=== PATIENT | female | born 1995 | race Caucasian/White ===

== ENCOUNTER 2016-11-27 23:58 | Emergency (ER) | payer MEDICAID ==
[2016-11-28] MEDS ORDERED: methylPREDNISolone Sodium Succinate 125 MG/2 ML SDV IVPUSH ONE (00:07)
[2016-11-28] MEDS ORDERED: Ondansetron 4 MG/2 ML SDV IVPUSH ONE (00:07)
[2016-11-28] MEDS ORDERED: Sodium Chloride 0.9% 1,000 ML IV ONE (00:07)
[2016-11-28] MEDS ORDERED: Albuterol/Ipratropium 3.0-0.5 MG/3 ML Neb Soln NEB ONE (00:07)
--- NOTE | 2016-11-28 00:12 | EDM.PDOC ---
ED HPI GENERAL MEDICAL PROBLEM - General Stated Complaint: NOT FEELING WELL/TROUBLE BREATHING Time Seen by Provider: 11/28/16 00:06 - History of Present Illness INITIAL COMMENTS - FREE TEXT/NARRATIVE: HISTORY AND PHYSICAL: History of present illness: Patient's 21-year-old white female judgments or shortness of breath cough patient has history of alpha-1 antitrypsin deficiency she is on home oxygen she said nausea vomiting. Review of systems: As per history of present illness and below otherwise all systems reviewed and negative. Past medical history: As per history of present illness and as reviewed below otherwise noncontributory. Surgical history: As per history of present illness and as reviewed below otherwise noncontributory. Social history: No reported history of drug or alcohol abuse. Family history: As per history of present illness and as reviewed below otherwise noncontributory. Physical exam: HEENT: Atraumatic, normocephalic, pupils reactive, negative for conjunctival pallor or scleral icterus, mucous membranes moist, throat clear, neck supple, nontender, trachea midline. Lungs: Coarse bilaterally with end expiratory wheezing noted, breath sounds equal bilaterally, chest nontender. Heart: S1S2, regular, negative for clicks, rubs, or JVD. Abdomen: Soft, nondistended, nontender. Negative for masses or hepatosplenomegaly. Negative for costovertebral tenderness. Pelvis: Stable nontender. Genitourinary: Deferred. Rectal: Deferred. Extremities: Atraumatic, negative for cords or calf pain. Neurovascular unremarkable. Neuro: Awake, alert, oriented. Cranial nerves II through XII unremarkable. Cerebellum unremarkable. Motor and sensory unremarkable throughout. Exam nonfocal. Diagnostics: CBC CMP UA hCG blood culture x2 lactic acid influenza screen chest x-ray Therapeutics: IV O2 monitor Solu-Medrol and 25 mg IV DuoNeb Impression: #1 pneumonitis #2 history of alpha-1 antitrypsin deficiency #3 obstructive lung disease Definitive disposition and diagnosis as appropriate pending reevaluation and review of above. - Related Data Allergies Allergy/AdvReac Type Severity Reaction Status Date / Time codeine Allergy Anaphylactic Verified 11/28/16 00:27 Shock latex Allergy Rash Verified 11/28/16 00:27 meperidine HCl [From Demerol] Allergy Anaphylactic Verified 11/28/16 00:27 Shock morphine Allergy Anaphylactic Verified 11/28/16 00:27 Shock Home Meds: Home Meds Albuterol [Ventolin HFA] 2 puff INH Q2HR PRN 06/02/14 [History] ALPRAZolam [Xanax] 0.25 mg PO BEDTIME tablet 09/16/15 [Rx] Albuterol/Ipratropium [DuoNeb 3.0-0.5 MG/3 ML] 3 ml NEB Q6HRRT 01/04/16 [History ] Calcium Carbonate [Calcium] 2 tab PO DAILY 11/28/16 [History] Past Medical History HEENT History: Reports: Allergic rhinitis Other HEENT History: dental abcess, broken teeth, astigmatism Cardiovascular History: Reports: None Respiratory History: Reports: Asthma, Bronchitis, recurrent, Pneumonia, recurrent, Other (see below) Other Respiratory History: mold in lungs. intubated 09/19/15 and flown to [place]. states being tested for AAT deficiency. Gastrointestinal History: Reports: Chronic constipation, GERD, Other (see below) Other Gastrointestinal History: constipation a chronic issue since intestinal growth removed Genitourinary History: Reports: UTI, recurrent [employer] History: Reports: None Musculoskeletal History: Reports: Fracture, Other (see below) Other Musculoskeletal History: Bulging disc Neurological History: Reports: Other (see below) Other Neuro History: tourette syndrome Psychiatric History: Reports: Anxiety, Depression, PTSD, Other (see below) Other Psychiatric History: Paranoia Endocrine/Metabolic History: Reports: None Hematologic History: Reports: Anemia Immunologic History: Reports: None Oncologic (Cancer) History: Reports: None Dermatologic History: Reports: None - Infectious Disease History Infectious Disease History: Reports: Chicken pox - Past Surgical History GI Surgical History: Reports: Appendectomy, Other (see below) Other GI Surgeries/Procedures: removal of growth on intestines Female Surgical History: Reports: None Social & Family History - Family History Family Medical History: Noncontributory HEENT: Reports: Impaired vision Cardiac: Reports: Heart failure Respiratory: Reports: Asthma GI: Reports: None : Reports: Renal disease/insufficiency OBGYN: Reports: None Musculoskeletal: Reports: Arthritis Neurological: Reports: Dementia Psychiatric: Reports: Anxiety, Depression Endocrine/Metabolic: Reports: Diabetes, type II Hematologic: Reports: Anemia Dermatologic: Reports: Other (see below) Other Dermatologic Family History: skin allergy, eczema Oncologic: Reports: Colon, Leukemia - Tobacco Use Smoking Status *Q: Former Smoker Years of Tobacco use: 5 Packs/Tins Daily: 0.5 Used Tobacco, but Quit: Yes Month Tobacco Last Used: june 2015 Second Hand Smoke Exposure: Yes - Caffeine Use Caffeine Use: Reports: Energy drinks Other Caffeine Use: 1-2 energy drink per day - Alcohol Use Days Per Week of Alcohol Use: 1 Number of Drinks Per Day: 1 Total Drinks Per Week: 1 - Recreational Drug Use Recreational Drug Use: No Drug Use in Last 12 Months: No Recreational Drug Type: Reports: Marijuana/Hashish ED ROS GENERAL - Review of Systems Review Of Systems: ROS reveals no pertinent complaints other than HPI. ED EXAM, GENERAL - Physical Exam Exam: See Below (See dictation) Course - Vital Signs Last Recorded V/S: Last Vital Signs Temp 37.4 C 11/28/16 00:46 Pulse 164 H 11/28/16 00:46 Resp 20 11/28/16 00:46 BP 128/72 11/28/16 00:46 Pulse Ox 96 11/28/16 00:46 - Orders/Labs/Meds Orders: Active Orders 24 hr Category Date Time Status RT Aerosol Therapy [RC] ASDIRECTED Care 11/28/16 00:08 Active Chest 2V [CR] Stat Exams 11/28/16 00:07 Taken UA W/MICROSCOPIC [URIN] Stat Lab 11/28/16 00:07 Uncollected Blood Culture x2 Reflex Set [OM.PC] Stat Oth 11/28/16 00:07 Ordered Labs: Laboratory Tests 11/28/16 11/28/16 11/28/16 Range/Units 00:15 00:15 00:15 WBC 10.54 (4.0-11.0) K/uL RBC 4.50 (4.30-5.90) M/uL Hgb 12.0 (12.0-16.0) g/dL Hct 37.2 (36.0-46.0) % MCV 82.7 (80.0-98.0) fL MCH 26.7 L (27.0-32.0) pg MCHC 32.3 (31.0-37.0) g/dL RDW Std Deviation 45.9 (28.0-62.0) fl RDW Coeff of Jhon 15 (11.0-15.0) % Plt Count 343 (150-400) K/uL MPV 9.20 (7.40-12.00) fL Neut % (Auto) 84.7 H (48.0-80.0) % Lymph % (Auto) 6.5 L (16.0-40.0) % Mccreary % (Auto) 6.7 (0.0-15.0) % Eos % (Auto) 1.7 (0.0-7.0) % Baso % (Auto) 0.4 (0.0-1.5) % Neut # 8.9 H (1.4-5.7) K/uL Lymph # 0.7 (0.6-2.4) K/uL Mccreary # 0.7 (0.0-0.8) K/uL Eos # 0.2 (0.0-0.7) K/uL Baso # 0.0 (0.0-0.1) K/uL Nucleated RBC % 0.0 /100WBC Nucleated RBCs # 0 K/uL Lactate 1.7 (0.20-2.00) mmol/L Sodium 137 (136-146) mmol/L Potassium 3.5 (3.5-5.1) mmol/L Chloride 106 (98-110) mmol/L Carbon Dioxide 19 L (21-31) mmol/L BUN 9 (6.0-23.0) mg/dL Creatinine 0.9 (0.6-1.5) mg/dL Est Cr Clr Drug Dosing TNP Estimated GFR (MDRD) > 60.0 ml/min Glucose 101 (60-110) mg/dL Calcium 9.5 (8.8-10.8) mg/dL Total Bilirubin 0.3 (0.1-1.5) mg/dL AST 15 (5-40) IU/L ALT 15 (8-54) IU/L Alkaline Phosphatase 93 (40-150) B-Natriuretic Peptide (<100) PG/ML Total Protein 7.7 (6.0-8.0) g/dL Albumin 4.4 (3.5-5.0) g/dL Globulin 3.4 (2.0-3.5) g/dL Albumin/Globulin Ratio 1.3 (1.3-2.8) HCG, Qual (NEG) 03/11/17 03/11/17 Range/Units 00:15 00:15 WBC (4.0-11.0) K/uL RBC (4.30-5.90) M/uL Hgb (12.0-16.0) g/dL Hct (36.0-46.0) % MCV (80.0-98.0) fL MCH (27.0-32.0) pg MCHC (31.0-37.0) g/dL RDW Std Deviation (28.0-62.0) fl RDW Coeff of Jhon (11.0-15.0) % Plt Count (150-400) K/uL MPV (7.40-12.00) fL Neut % (Auto) (48.0-80.0) % Lymph % (Auto) (16.0-40.0) % Mccreary % (Auto) (0.0-15.0) % Eos % (Auto) (0.0-7.0) % Baso % (Auto) (0.0-1.5) % Neut # (1.4-5.7) K/uL Lymph # (0.6-2.4) K/uL Mccreary # (0.0-0.8) K/uL Eos # (0.0-0.7) K/uL Baso # (0.0-0.1) K/uL Nucleated RBC % /100WBC Nucleated RBCs # K/uL Lactate (0.20-2.00) mmol/L Sodium (136-146) mmol/L Potassium (3.5-5.1) mmol/L Chloride (98-110) mmol/L Carbon Dioxide (21-31) mmol/L BUN (6.0-23.0) mg/dL Creatinine (0.6-1.5) mg/dL Est Cr Clr Drug Dosing Estimated GFR (MDRD) ml/min Glucose (60-110) mg/dL Calcium (8.8-10.8) mg/dL Total Bilirubin (0.1-1.5) mg/dL AST (5-40) IU/L ALT (8-54) IU/L Alkaline Phosphatase (40-150) B-Natriuretic Peptide 15 (<100) PG/ML Total Protein (6.0-8.0) g/dL Albumin (3.5-5.0) g/dL Globulin (2.0-3.5) g/dL Albumin/Globulin Ratio (1.3-2.8) HCG, Qual NEGATIVE (NEG) Meds: Medications Discontinued Medications Generic Name Dose Route Start Last Admin Trade Name Brian PRN Reason Stop Dose Admin Albuterol/Ipratropium 3 ml 11/28/16 00:07 11/28/16 00:32 Duoneb 3.0-0.5 Mg/3 Ml NEB 11/28/16 00:08 3 ml ONETIME ONE Administration Sodium Chloride 1,000 mls @ 999 mls/hr 11/28/16 00:07 11/28/16 00:40 Normal Saline IV 11/28/16 01:07 999 mls/hr STAT ONE Administration Methylprednisolone Sodium Succinate 125 mg 11/28/16 00:07 11/28/16 00:35 Solu-Medrol IVPUSH 11/28/16 00:08 125 mg ONETIME ONE Administration Ondansetron HCl 4 mg 11/28/16 00:07 11/28/16 00:37 Zofran IVPUSH 11/28/16 00:08 4 mg ONETIME ONE Administration Departure - Departure Time of Disposition: 01:43 Disposition: Home, Self-Care 01 Condition: good Clinical Impression: Pneumonitis Additional Instructions: The following information is given to patients seen in the emergency department who are being discharged to home. This information is to outline your options for follow-up care. We provide all patients seen in our emergency department with a follow-up referral. The need for follow-up, as well as the timing and circumstances, are variable depending upon the specifics of your emergency department visit. If you don't have a primary care physician on staff, we will provide you with a referral. We always advise you to contact your personal physician following an emergency department visit to inform them of the circumstance of the visit and for follow-up with them and/or the need for any referrals to a consulting specialist. The emergency department will also refer you to a specialist when appropriate. This referral assures that you have the opportunity for followup care with a specialist. All of these measure are taken in an effort to provide you with optimal care, which includes your followup. Under all circumstances we always encourage you to contact your private physician who remains a resource for coordinating your care. When calling for followup care, please make the office aware that this follow-up is from your recent emergency room visit. If for any reason you are refused follow-up, please contact the [facility] emergency department at and asked to speak to the emergency department charge nurse. A Zithromax Medrol as prescribed follow up primary medical doctor within 2 days return as needed as discussed - My Orders Last 24 Hours: My Active Orders 11/28/16 00:07 Chest 2V [CR] Stat UA W/MICROSCOPIC [URIN] Stat Blood Culture x2 Reflex Set [OM.PC] Stat 11/28/16 00:08 RT Aerosol Therapy [RC] ASDIRECTED - Assessment/Plan Last 24 Hours: My Active Orders 11/28/16 00:07 Chest 2V [CR] Stat UA W/MICROSCOPIC [URIN] Stat Blood Culture x2 Reflex Set [OM.PC] Stat 11/28/16 00:08 RT Aerosol Therapy [RC] ASDIRECTED
[2016-11-28 01:09] LABS: CHLORIDE,CL 106 mmol/L (98-110); SODIUM,NA 137 mmol/L (136-146)
[2016-11-28 02:16] VITALS: BP 114/56
--- NOTE | 2016-11-30 19:56 | CR ---
EXAM DATE: 11/27/16 PATIENT'S AGE: 21 Patient: [facility] Facility: [place], [place] Site . Site : 1996 Study: XRay Chest [id number] 1:21:27 AM Ordering Physician: Tobin Velazco Final Report: INDICATION: Chest pain with shortness of breath TECHNIQUE: Chest 2 views. COMPARISON: November 05, 2016 FINDINGS: Cardiovascular and mediastinum: Heart size and vasculature are normal in caliber and appearance. Mediastinum is within normal limits. Lungs and pleural spaces: Patchy opacity projects over the cardiac shadow on the lateral film. No sign of pleural effusion. No pneumothorax. Bones and soft tissues: No significant findings. IMPRESSION: Patchy atelectasis or infiltrate in the right middle lobe. Dictated by Breanna Fernández MD @ Nov 28 2016 1:22AM (Electronic Signature) Report Signed by Proxy and Original Signed Document filed in the Medical Record. KATY
== END 2016-11-28 02:10 | disposition home or self-care (01) ==
LOC: MW.ED 23:58
DX: J18.9 Pneumonia, unspecified organism (principal); K21.9 Gastro-esophageal reflux disease without esophagitis; F41.9 Anxiety disorder, unspecified; F32.9 Major depressive disorder, single episode, unspecified; Z86.2 Personal history of diseases of the blood and blood-forming organs and certain disorders involving the immune mechanism; J45.909 Unspecified asthma, uncomplicated; Z87.891 Personal history of nicotine dependence; Z90.49 Acquired absence of other specified parts of digestive tract; Z87.440 Personal history of urinary (tract) infections; Z79.899 Other long term (current) drug therapy; Z88.5 Allergy status to narcotic agent; Z91.040 Latex allergy status
CPT/HCPCS: 71020; 80053; 81001; 83605; 83880; 84703; 85025; 87804; 96361; 96374; 96375; 99285; J2405; J2930; J7040; 99283

== ENCOUNTER → 2016-12-11 | Outpatient (CLI) | payer MEDICAID ==
--- NOTE | 2016-12-11 10:06 | CR ---
EXAMINATION: Two-view chest (PA and Lateral views). HISTORY: Cough. FINDINGS: The trachea is midline. The cardiomediastinal silhouette is within normal limits. No pulmonary infil trates, effusions or pneumothorax. Osseous structures appear unremarkable. IMPRESSION: No acute cardiopulmonary process.
[2016-12-11 10:13] LABS: CHLORIDE,CL 110 mmol/L (98-110); SODIUM,NA 142 mmol/L (136-146)
== END ==
LOC: MW.CHFP 09:02
PROVIDERS: ATTEND Student in an Organized Health Care Education/Training Program
DX: R05 Cough (principal); R11.2 Nausea with vomiting, unspecified; J41.1 Mucopurulent chronic bronchitis
CPT/HCPCS: 36415; 71020; 71020-26; 80053; 85025

== ENCOUNTER 2017-04-18 22:14 | Emergency (ER) | payer MEDICAID ==
[2017-04-18] MEDS ORDERED: Sodium Chloride 0.9% 2.5 ML Syringe FLUSH PRN (23:25)
[2017-04-18] MEDS ORDERED: Sodium Chloride 0.9% 1,000 ML IV ONE (23:25)
[2017-04-18] MEDS ORDERED: Ondansetron 4 MG/2 ML SDV IVPUSH ONE (23:25)
[2017-04-18] MEDS ORDERED: Sodium Chloride 0.9% 10 ML Syringe FLUSH PRN (23:25)
[2017-04-18] MEDS ORDERED: Famotidine 20 MG/2 ML SDV IVPUSH ONE (23:25)
--- NOTE | 2017-04-18 23:30 | EDM.PDOC ---
ED HPI GENERAL MEDICAL PROBLEM - General Chief Complaint: Gastrointestinal Problem Stated Complaint: DIZZY/VOMITING Time Seen by Provider: 04/18/17 23:18 - History of Present Illness INITIAL COMMENTS - FREE TEXT/NARRATIVE: HISTORY AND PHYSICAL: History of present illness: The patient is a 22-year-old female who presents with a five-day history of epigastric and generalized abdominal pain is not associated with foods and nausea and vomiting initially intermittently and now more consistently and no period since March 16. The patient states she has regular periods and she takes control and she did a home test that was negative. She's concerned because her breasts are also tender. She's had no fever chills or urinary complaints no vaginal bleeding or flank pain. Initially she told triage nurse that it was epigastric but she is telling me that it's there and it's all over her abdomen. She has no urinary frequency hematuria or dysuria. She has only taken Motrin [id number] but no GI meds specifically. She has a history of an appendectomy. He states that the pain is not better or worse in the morning or the evening and is not associated with certain foods. Review of systems: As per history of present illness and below otherwise all systems reviewed and negative. Past medical history: As per history of present illness and as reviewed below otherwise noncontributory. Surgical history: As per history of present illness and as reviewed below otherwise noncontributory. Social history: No reported history of drug or alcohol abuse. Family history: As per history of present illness and as reviewed below otherwise noncontributory. Physical exam: Gen.: Well-developed well-nourished overweight female who is nontoxic and vital signs of been reviewed by me. HEENT: Atraumatic, normocephalic, negative for conjunctival pallor or scleral icterus, mucous membranes moist, throat clear, neck supple, nontender, trachea midline. Lungs: Clear to auscultation, breath sounds equal bilaterally, chest nontender. Heart: S1S2, regular, negative for clicks, rubs, or JVD. Abdomen: Soft, nondistended, nontender. On deep palpation throughout the abdominal exam I am unable to elicit any specific area of tenderness but there is a generalized sense of generalized discomfort without any focality. There is no rebound or guarding and bowel sounds are normoactive. Negative for masses or hepatosplenomegaly. Negative for costovertebral tenderness. Pelvis: Stable nontender. Genitourinary: Deferred. Rectal: Deferred. Extremities: Atraumatic, negative for cords or calf pain. Neurovascular unremarkable. Neuro: Awake, alert, oriented. Cranial nerves II through XII unremarkable. Cerebellum unremarkable. Motor and sensory unremarkable throughout. Exam nonfocal. Diagnostics: CBC CMP amylase lipase UA UCG serum hCG Therapeutics: IV fluids Zofran Pepcid Please note that after multiple IV attempts we were unable to get IV and and the patient wanted to hold off anymore temps. She got ODT Zofran but did not get the Pepcid. After some time she was able to take by mouth fluids without nausea or vomiting and her pain is improved now that the nausea has stopped. I discussed with the patient and significant other at the bedside all testing results and have advised follow-up which she tells me she has an appointment this morning with Dr. Xiong in the clinic. I told her that I would give her some Zofran for home tell her to push hydration and bland diet and also write for a PPI she can fill in the morning. I also advised her on dietary restrictions and that Dr. Xiong on his evaluation may schedule more testing pending his evaluation later today. Patient is comfortable with this care plan. Impression: Epigastric abdominal pain nausea and vomiting improved etiology unclear stable Definitive disposition and diagnosis as appropriate pending reevaluation and review of above. epigastric Pain Score (Numeric/FACES): 6 - Related Data Allergies Allergy/AdvReac Type Severity Reaction Status Date / Time codeine Allergy Anaphylactic Verified 04/18/17 22:29 Shock latex Allergy Rash Verified 04/18/17 22:29 meperidine HCl [From Demerol] Allergy Anaphylactic Verified 04/18/17 22:29 Shock morphine Allergy Anaphylactic Verified 04/18/17 22:29 Shock Home Meds: Home Meds Albuterol [Ventolin HFA] 2 puff INH Q2HR PRN 06/02/14 [History] ALPRAZolam [Xanax] 0.25 mg PO BEDTIME tablet 09/16/15 [Rx] Albuterol/Ipratropium [DuoNeb 3.0-0.5 MG/3 ML] 3 ml NEB Q6HRRT 01/04/16 [History ] Past Medical History HEENT History: Reports: Allergic Rhinitis Other HEENT History: dental abcess, broken teeth, astigmatism Cardiovascular History: Reports: None Respiratory History: Reports: Asthma, Bronchitis, Recurrent, Pneumonia, Recurrent, Other (See Below) Other Respiratory History: mold in lungs. intubated 09/19/15 and flown to [place]. states being tested for AAT deficiency. 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 Musculoskeletal History: Reports: Fracture, Other (See Below) Other Musculoskeletal History: Bulging disc Neurological History: Reports: Other (See Below) Other Neuro History: tourette syndrome Psychiatric History: Reports: Anxiety, Depression, PTSD, Other (See Below) Other Psychiatric History: Paranoia Endocrine/Metabolic History: Reports: None Hematologic History: Reports: Anemia Immunologic History: Reports: None Oncologic (Cancer) History: Reports: None Dermatologic History: Reports: None - Infectious Disease History Infectious Disease History: Reports: Chicken Pox - Past Surgical History GI Surgical History: Reports: Appendectomy, Other (See Below) Social & Family History - Family History Family Medical History: Noncontributory HEENT: Reports: Impaired Vision Cardiac: Reports: Heart Failure Respiratory: Reports: Asthma GI: Reports: None : Reports: Renal Disease/Insufficiency OBGYN: Reports: None Musculoskeletal: Reports: Arthritis Neurological: Reports: Dementia Psychiatric: Reports: Anxiety, Depression Endocrine/Metabolic: Reports: Diabetes, type II Hematologic: Reports: Anemia Dermatologic: Reports: Other (See Below) Other Dermatologic Family History: skin allergy, eczema Oncologic: Reports: Colon, Leukemia - Tobacco Use Smoking Status *Q: Current Every Day Smoker Years of Tobacco use: 10 Packs/Tins Daily: 1 Used Tobacco, but Quit: Yes Month Tobacco Last Used: june 2015 Second Hand Smoke Exposure: Yes - Caffeine Use Caffeine Use: Reports: Energy Drinks Other Caffeine Use: 1-2 energy drink per day Caffeine Use Comment: 2cups coffe/day; 2 drinks/day - Alcohol Use Days Per Week of Alcohol Use: 1 Number of Drinks Per Day: 1 Total Drinks Per Week: 1 - Recreational Drug Use Recreational Drug Use: No Drug Use in Last 12 Months: No Recreational Drug Type: Reports: Marijuana/Hashish ED TRUE GENERAL - Review of Systems Review Of Systems: ROS reveals no pertinent complaints other than HPI. ED EXAM, GENERAL - Physical Exam Exam: See Below (See dictation) Course - Vital Signs Last Recorded V/S: Last Vital Signs Temp 36.8 C 04/18/17 22:31 Pulse 68 04/18/17 22:31 Resp 16 04/18/17 22:31 BP 150/72 H 04/18/17 22:31 Pulse Ox 98 04/18/17 22:31 - Orders/Labs/Meds Orders: Active Orders 24 hr Category Date Time Status Sodium Chloride 0.9% [Saline Flush] Med 04/18/17 23:25 Active 10 ml FLUSH ASDIRECTED PRN Sodium Chloride 0.9% [Saline Flush] Med 04/18/17 23:25 Active 2.5 ml FLUSH ASDIRECTED PRN Saline Lock Insert [OM.PC] Stat Oth 04/18/17 23:23 Ordered Medication Orders Sodium Chloride (Saline Flush) 10 ml FLUSH ASDIRECTED PRN PRN Reason: Keep Vein Open Sodium Chloride (Saline Flush) 2.5 ml FLUSH ASDIRECTED PRN PRN Reason: Keep Vein Open Labs: Laboratory Tests 04/19/17 04/19/17 04/19/17 Range/Units 00:37 00:37 00:37 WBC 12.42 H (4.0-11.0) K/uL RBC 4.12 L (4.30-5.90) M/uL Hgb 11.4 L (12.0-16.0) g/dL Hct 35.4 L (36.0-46.0) % MCV 85.9 (80.0-98.0) fL MCH 27.7 (27.0-32.0) pg MCHC 32.2 (31.0-37.0) g/dL RDW Std Deviation 48.9 (28.0-62.0) fl RDW Coeff of Jhon 16 H (11.0-15.0) % Plt Count 416 H (150-400) K/uL MPV 9.10 (7.40-12.00) fL Neut % (Auto) 60.5 (48.0-80.0) % Lymph % (Auto) 28.3 (16.0-40.0) % [place] % (Auto) 9.3 (0.0-15.0) % Eos % (Auto) 1.6 (0.0-7.0) % Baso % (Auto) 0.3 (0.0-1.5) % Neut # (Auto) 7.5 H (1.4-5.7) K/uL Lymph # (Auto) 3.5 H (0.6-2.4) K/uL [place] # (Auto) 1.2 H (0.0-0.8) K/uL Eos # (Auto) 0.2 (0.0-0.7) K/uL Baso # (Auto) 0.0 (0.0-0.1) K/uL Nucleated RBC % 0.0 /100WBC Nucleated RBCs # 0 K/uL Sodium 141 (136-146) mmol/L Potassium 4.2 (3.5-5.1) mmol/L Chloride 111 H (98-110) mmol/L Carbon Dioxide 21 (21-31) mmol/L BUN 10 (6.0-23.0) mg/dL Creatinine 0.9 (0.6-1.5) mg/dL Est Cr Clr Drug Dosing 71.02 mL/min Estimated GFR (MDRD) > 60.0 ml/min Glucose 94 (60-110) mg/dL Calcium 9.4 (8.8-10.8) mg/dL Total Bilirubin 0.2 (0.1-1.5) mg/dL AST 13 (5-40) IU/L ALT 21 (8-54) IU/L Alkaline Phosphatase 61 (40-150) Total Protein 7.0 (6.0-8.0) g/dL Albumin 4.0 (3.5-5.0) g/dL Globulin 3.0 (2.0-3.5) g/dL Albumin/Globulin Ratio 1.3 (1.3-2.8) Amylase 49 (10-90) U/L Lipase 13 (7-80) U/L HCG, Quant < 1.2 mIU/mL Urine Color Urine Appearance Urine pH (5.0-8.0) Ur Specific [place] (1.001-1.035) Urine Protein (NEGATIVE) mg/dL Urine Glucose (UA) (NEGATIVE) mg/dL Urine Ketones (NEGATIVE) mg/dL Urine Occult Blood (NEGATIVE) Urine Nitrite (NEGATIVE) Urine Bilirubin (NEGATIVE) Urine Urobilinogen (<2.0) EU/dL Ur Leukocyte Esterase (NEGATIVE) Urine RBC (0-2/HPF) Urine WBC (0-5/HPF) Ur Epithelial Cells (NONE-FEW) Amorphous Sediment (NEGATIVE) Urine Bacteria (NEGATIVE) Urine HCG, Qual (NEGATIVE) 04/19/17 04/19/17 Range/Units 00:55 00:55 WBC (4.0-11.0) K/uL RBC (4.30-5.90) M/uL Hgb (12.0-16.0) g/dL Hct (36.0-46.0) % MCV (80.0-98.0) fL MCH (27.0-32.0) pg MCHC (31.0-37.0) g/dL RDW Std Deviation (28.0-62.0) fl RDW Coeff of Jhon (11.0-15.0) % Plt Count (150-400) K/uL MPV (7.40-12.00) fL Neut % (Auto) (48.0-80.0) % Lymph % (Auto) (16.0-40.0) % [place] % (Auto) (0.0-15.0) % Eos % (Auto) (0.0-7.0) % Baso % (Auto) (0.0-1.5) % Neut # (Auto) (1.4-5.7) K/uL Lymph # (Auto) (0.6-2.4) K/uL [place] # (Auto) (0.0-0.8) K/uL Eos # (Auto) (0.0-0.7) K/uL Baso # (Auto) (0.0-0.1) K/uL Nucleated RBC % /100WBC Nucleated RBCs # K/uL Sodium (136-146) mmol/L Potassium (3.5-5.1) mmol/L Chloride (98-110) mmol/L Carbon Dioxide (21-31) mmol/L BUN (6.0-23.0) mg/dL Creatinine (0.6-1.5) mg/dL Est Cr Clr Drug Dosing mL/min Estimated GFR (MDRD) ml/min Glucose (60-110) mg/dL Calcium (8.8-10.8) mg/dL Total Bilirubin (0.1-1.5) mg/dL AST (5-40) IU/L ALT (8-54) IU/L Alkaline Phosphatase (40-150) Total Protein (6.0-8.0) g/dL Albumin (3.5-5.0) g/dL Globulin (2.0-3.5) g/dL Albumin/Globulin Ratio (1.3-2.8) Amylase (10-90) U/L Lipase (7-80) U/L HCG, Quant mIU/mL Urine Color YELLOW Urine Appearance CLOUDY Urine pH 7.0 (5.0-8.0) Ur Specific [place] 1.020 (1.001-1.035) Urine Protein NEGATIVE (NEGATIVE) mg/dL Urine Glucose (UA) NEGATIVE (NEGATIVE) mg/dL Urine Ketones NEGATIVE (NEGATIVE) mg/dL Urine Occult Blood NEGATIVE (NEGATIVE) Urine Nitrite NEGATIVE (NEGATIVE) Urine Bilirubin NEGATIVE (NEGATIVE) Urine Urobilinogen 0.2 (<2.0) EU/dL Ur Leukocyte Esterase NEGATIVE (NEGATIVE) Urine RBC NONE SEEN (0-2/HPF) Urine WBC 0-1 (0-5/HPF) Ur Epithelial Cells FEW (NONE-FEW) Amorphous Sediment HEAVY (NEGATIVE) Urine Bacteria FEW (NEGATIVE) Urine HCG, Qual NEGATIVE (NEGATIVE) Meds: Medications Generic Name Dose Route Start Last Admin Trade Name Brian PRN Reason Stop Dose Admin Sodium Chloride 10 ml 04/18/17 23:25 Saline Flush FLUSH ASDIRECTED PRN Keep Vein Open Sodium Chloride 2.5 ml 04/18/17 23:25 Saline Flush FLUSH ASDIRECTED PRN Keep Vein Open Discontinued Medications Generic Name Dose Route Start Last Admin Trade Name Brian PRN Reason Stop Dose Admin Famotidine 20 mg 04/18/17 23:25 Pepcid IVPUSH 04/18/17 23:26 ONETIME ONE Sodium Chloride 1,000 mls @ 999 mls/hr 04/18/17 23:25 Normal Saline IV 04/19/17 00:25 STAT ONE Ondansetron HCl 4 mg 04/18/17 23:25 Zofran IVPUSH 04/18/17 23:26 ONETIME ONE Ondansetron HCl 4 mg 04/19/17 00:47 04/19/17 00:51 Zofran Odt PO 04/19/17 00:48 4 mg ONETIME ONE Administration Departure - Departure Time of Disposition: 01:55 Disposition: Home, Self-Care 01 Condition: Good Clinical Impression: Vomiting, Abdominal pain - Discharge Information Forms: ED Department Discharge Additional Instructions: The following information is given to patients seen in the emergency department who are being discharged to home. This information is to outline your options for follow-up care. We provide all patients seen in our emergency department with a follow-up referral. The need for follow-up, as well as the timing and circumstances, are variable depending upon the specifics of your emergency department visit. If you don't have a primary care physician on staff, we will provide you with a referral. We always advise you to contact your personal physician following an emergency department visit to inform them of the circumstance of the visit and for follow-up with them and/or the need for any referrals to a consulting specialist. The emergency department will also refer you to a specialist when appropriate. This referral assures that you have the opportunity for followup care with a specialist. All of these measure are taken in an effort to provide you with optimal care, which includes your followup. Under all circumstances we always encourage you to contact your private physician who remains a resource for coordinating your care. When calling for followup care, please make the office aware that this follow-up is from your recent emergency room visit. If for any reason you are refused follow-up, please contact the [facility] emergency department at and ask to speak to the emergency department charge nurse. [facility] Primary care- Internal Medicine and Family [address] [address] Please use Zofran you have been given this evening as needed for nausea and vomiting. Push small sips of clear liquids and bland bites over the next 24 hours. Avoid fast foods junk foods caffeinated products and alcohol. Please keep your appointment for follow-up today in the clinic and also fill the prescription you have been given for Prevacid to help reduce acid production. Return to ER as needed and as discussed - My Orders Last 24 Hours: My Active Orders 04/18/17 23:23 Saline Lock Insert [OM.PC] Stat 04/18/17 23:25 Sodium Chloride 0.9% [Saline Flush] 10 ml FLUSH ASDIRECTED PRN Sodium Chloride 0.9% [Saline Flush] 2.5 ml FLUSH ASDIRECTED PRN - Assessment/Plan Last 24 Hours: My Active Orders 04/18/17 23:23 Saline Lock Insert [OM.PC] Stat 04/18/17 23:25 Sodium Chloride 0.9% [Saline Flush] 10 ml FLUSH ASDIRECTED PRN Sodium Chloride 0.9% [Saline Flush] 2.5 ml FLUSH ASDIRECTED PRN
[2017-04-19] MEDS ORDERED: Ondansetron 4 MG Tab.DIS PO ONE (00:47)
[2017-04-19 01:14] LABS: CHLORIDE,CL 111 mmol/L (98-110); SODIUM,NA 141 mmol/L (136-146)
[2017-04-19 02:26] VITALS: BP 133/68
== END 2017-04-19 02:26 | disposition home or self-care (01) ==
LOC: MW.ED 22:14
DX: R10.13 Epigastric pain (principal); R11.10 Vomiting, unspecified; J45.909 Unspecified asthma, uncomplicated; F32.9 Major depressive disorder, single episode, unspecified; F17.210 Nicotine dependence, cigarettes, uncomplicated; K21.9 Gastro-esophageal reflux disease without esophagitis; Z90.49 Acquired absence of other specified parts of digestive tract; Z88.5 Allergy status to narcotic agent; Z87.440 Personal history of urinary (tract) infections; Z91.040 Latex allergy status; Z87.01 Personal history of pneumonia (recurrent); Z88.8 Allergy status to other drugs, medicaments and biological substances; Z86.2 Personal history of diseases of the blood and blood-forming organs and certain disorders involving the immune mechanism
CPT/HCPCS: 36415; 80053; 81001; 81025; 82150; 83690; 84702; 85025; 99284; A9270; 99283

== ENCOUNTER 2017-05-07 07:04 | Emergency (ER) | payer MEDICAID ==
[2017-05-07] MEDS ORDERED: Albuterol/Ipratropium 3.0-0.5 MG/3 ML Neb Soln NEB ONE (07:14)
[2017-05-07] MEDS ORDERED: Sodium Chloride 0.9% 10 ML Syringe FLUSH PRN (07:15)
[2017-05-07] MEDS ORDERED: Sodium Chloride 0.9% 2.5 ML Syringe FLUSH PRN (07:15)
[2017-05-07] MEDS ORDERED: methylPREDNISolone Sodium Succinate 125 MG/2 ML SDV IV STA (07:15)
[2017-05-07] MEDS ORDERED: Sodium Chloride 0.9% 1,000 ML IV ONE (07:18)
[2017-05-07] MEDS ORDERED: Ondansetron 4 MG/2 ML SDV IVPUSH ONE (07:18)
[2017-05-07] MEDS ORDERED: methylPREDNISolone Sodium Succinate 125 MG/2 ML SDV IVPUSH ONE (07:35)
--- NOTE | 2017-05-07 07:40 | EDM.PDOC ---
ED HPI GENERAL MEDICAL PROBLEM - General Chief Complaint: Respiratory Problem Stated Complaint: DIFFICULTY BREATHING Time Seen by Provider: 05/07/17 07:08 - History of Present Illness INITIAL COMMENTS - FREE TEXT/NARRATIVE: HISTORY AND PHYSICAL: History of present illness: This is a 22-year-old female with a past medical history of asthma presenting to the emergency department with a chief complaint of shortness of breath. Onset this morning. The patient tells me that she was on home oxygen up until 2 months ago. She also states that she feels nauseous. She tells it is worse in a daycare center and has been around many sick contacts. She denies any fevers, chills, recent travel. Review of systems: As per history of present illness and below otherwise all systems reviewed and negative. Past medical history: As per history of present illness and as reviewed below otherwise noncontributory. Surgical history: As per history of present illness and as reviewed below otherwise noncontributory. Social history: No reported history of drug or alcohol abuse. Family history: As per history of present illness and as reviewed below otherwise noncontributory. Physical exam: HEENT: Atraumatic, normocephalic, pupils reactive, negative for conjunctival pallor or scleral icterus, mucous membranes moist, throat clear, neck supple, nontender, trachea midline. Lungs: Symmetric chest expansion. Mild expiratory wheezing bilaterally. Heart: S1S2, regular, negative for clicks, rubs, or JVD. Abdomen: Soft, nondistended, nontender. Negative for masses or hepatosplenomegaly. Negative for costovertebral tenderness. Pelvis: Stable nontender. Genitourinary: Deferred. Rectal: Deferred. Extremities: Atraumatic, negative for cords or calf pain. Neurovascular unremarkable. No pitting edema. Warm and well perfused. Diagnostics: CBC CMP Chest X-ray Troponin Therapeutics: Albuterol/Ipratropium neb Solu-Medrol IV 125mg Zofran IV 4mg IV NS Bolus Impression: Asthma Exacerbation Plan: Discharge home. Follow up with PCP. Prednisone 50mg qday x 5 days #5 tabs Albuterol inh q4-6hrs PRN for shortness of breath. Definitive disposition and diagnosis as appropriate pending reevaluation and review of above. Chest Pain Score (Numeric/FACES): 7 - Related Data Allergies Allergy/AdvReac Type Severity Reaction Status Date / Time codeine Allergy Anaphylactic Verified 05/07/17 07:07 Shock latex Allergy Rash Verified 05/07/17 07:07 meperidine HCl [From Demerol] Allergy Anaphylactic Verified 05/07/17 07:07 Shock morphine Allergy Anaphylactic Verified 05/07/17 07:07 Shock Home Meds: Home Meds Albuterol [Ventolin HFA] 2 puff INH Q2HR PRN 06/02/14 [History] ALPRAZolam [Xanax] 0.25 mg PO BEDTIME tablet 09/16/15 [Rx] Albuterol/Ipratropium [DuoNeb 3.0-0.5 MG/3 ML] 3 ml NEB Q6HRRT 01/04/16 [History ] Prednisone [IJD: predniSONE] 50 mg PO WITHBREAKFAST #5 tab 05/07/17 [Rx] Past Medical History HEENT History: Reports: Allergic Rhinitis Other HEENT History: dental abcess, broken teeth, astigmatism Cardiovascular History: Reports: None Respiratory History: Reports: Asthma, Bronchitis, Recurrent, Pneumonia, Recurrent, Other (See Below) Other Respiratory History: mold in lungs. intubated 09/19/15 and flown to [place]. states being tested for AAT deficiency. 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 Musculoskeletal History: Reports: Fracture, Other (See Below) Other Musculoskeletal History: Bulging disc Neurological History: Reports: Other (See Below) Other Neuro History: tourette syndrome Psychiatric History: Reports: Anxiety, Depression, PTSD, Other (See Below) Other Psychiatric History: Paranoia Endocrine/Metabolic History: Reports: None Hematologic History: Reports: Anemia Immunologic History: Reports: None Oncologic (Cancer) History: Reports: None Dermatologic History: Reports: None - Infectious Disease History Infectious Disease History: Reports: Influenza - Past Surgical History GI Surgical History: Reports: Appendectomy, Other (See Below) Social & Family History - Family History Family Medical History: Noncontributory HEENT: Reports: Impaired Vision Cardiac: Reports: Heart Failure Respiratory: Reports: Asthma GI: Reports: None : Reports: Renal Disease/Insufficiency OBGYN: Reports: None Musculoskeletal: Reports: Arthritis Neurological: Reports: Dementia Psychiatric: Reports: Anxiety, Depression Endocrine/Metabolic: Reports: Diabetes, type II Hematologic: Reports: Anemia Dermatologic: Reports: Other (See Below) Other Dermatologic Family History: skin allergy, eczema Oncologic: Reports: Colon, Leukemia - Tobacco Use Smoking Status *Q: Current Every Day Smoker Years of Tobacco use: 10 Packs/Tins Daily: 0.5 Used Tobacco, but Quit: Yes Month Tobacco Last Used: june 2015 Second Hand Smoke Exposure: Yes - Caffeine Use Caffeine Use: Reports: Energy Drinks Other Caffeine Use: 1-2 energy drink per day Caffeine Use Comment: 2cups coffe/day; 2 drinks/day - Alcohol Use Days Per Week of Alcohol Use: 1 Number of Drinks Per Day: 1 Total Drinks Per Week: 1 - Recreational Drug Use Recreational Drug Use: No Drug Use in Last 12 Months: No Recreational Drug Type: Reports: Marijuana/Hashish ED ROS GENERAL - Review of Systems Review Of Systems: ROS reveals no pertinent complaints other than HPI. (See dictation) ED EXAM, GENERAL - Physical Exam Exam: See Below (See dictation) Course - Vital Signs Last Recorded V/S: Last Vital Signs Temp 36.4 C 05/07/17 07:07 Pulse 65 05/07/17 07:15 Resp 24 H 05/07/17 07:07 BP 151/85 H 05/07/17 07:07 Pulse Ox 98 05/07/17 07:15 - Orders/Labs/Meds Orders: Active Orders 24 hr Category Date Time Status RT Aerosol Therapy [RC] ASDIRECTED Care 05/07/17 07:15 Active Sodium Chloride 0.9% [Saline Flush] Med 05/07/17 07:15 Active 10 ml FLUSH ASDIRECTED PRN Sodium Chloride 0.9% [Saline Flush] Med 05/07/17 07:15 Active 2.5 ml FLUSH ASDIRECTED PRN Saline Lock Insert [OM.PC] Stat Oth 05/07/17 07:13 Ordered Medication Orders Sodium Chloride (Saline Flush) 10 ml FLUSH ASDIRECTED PRN PRN Reason: Keep Vein Open Last Admin: 05/07/17 08:07 Dose: 10 ml Sodium Chloride (Saline Flush) 2.5 ml FLUSH ASDIRECTED PRN PRN Reason: Keep Vein Open Last Admin: 05/07/17 08:07 Dose: 2.5 ml Labs: Laboratory Tests 05/07/17 05/07/17 05/07/17 Range/Units 07:26 07:26 07:26 WBC 10.93 (4.0-11.0) K/uL RBC 4.24 L (4.30-5.90) M/uL Hgb 11.9 L (12.0-16.0) g/dL Hct 36.2 (36.0-46.0) % MCV 85.4 (80.0-98.0) fL MCH 28.1 (27.0-32.0) pg MCHC 32.9 (31.0-37.0) g/dL RDW Std Deviation 48.2 (28.0-62.0) fl RDW Coeff of Jhon 15 (11.0-15.0) % Plt Count 408 H (150-400) K/uL MPV 9.20 (7.40-12.00) fL Neut % (Auto) 57.2 (48.0-80.0) % Lymph % (Auto) 30.7 (16.0-40.0) % [place] % (Auto) 8.4 (0.0-15.0) % Eos % (Auto) 3.3 (0.0-7.0) % Baso % (Auto) 0.4 (0.0-1.5) % Neut # (Auto) 6.3 H (1.4-5.7) K/uL Lymph # (Auto) 3.4 H (0.6-2.4) K/uL [place] # (Auto) 0.9 H (0.0-0.8) K/uL Eos # (Auto) 0.4 (0.0-0.7) K/uL Baso # (Auto) 0.0 (0.0-0.1) K/uL Nucleated RBC % 0.0 /100WBC Nucleated RBCs # 0 K/uL Sodium 140 (136-146) mmol/L Potassium 3.4 L (3.5-5.1) mmol/L Chloride 110 (98-110) mmol/L Carbon Dioxide 19 L (21-31) mmol/L BUN 11 (6.0-23.0) mg/dL Creatinine 0.9 (0.6-1.5) mg/dL Est Cr Clr Drug Dosing TNP Estimated GFR (MDRD) > 60.0 ml/min Glucose 132 H (60-110) mg/dL Calcium 9.3 (8.8-10.8) mg/dL Total Bilirubin 0.2 (0.1-1.5) mg/dL AST 17 (5-40) IU/L ALT 19 (8-54) IU/L Alkaline Phosphatase 64 (40-150) Troponin I < 0.10 (0.0-0.29) NG/ML Total Protein 6.9 (6.0-8.0) g/dL Albumin 4.0 (3.5-5.0) g/dL Globulin 2.9 (2.0-3.5) g/dL Albumin/Globulin Ratio 1.4 (1.3-2.8) Meds: Medications Generic Name Dose Route Start Last Admin Trade Name Freq PRN Reason Stop Dose Admin Sodium Chloride 10 ml 05/07/17 07:15 05/07/17 08:07 Saline Flush FLUSH 10 ml ASDIRECTED PRN Administration Keep Vein Open Sodium Chloride 2.5 ml 05/07/17 07:15 05/07/17 08:07 Saline Flush FLUSH 2.5 ml ASDIRECTED PRN Administration Keep Vein Open Discontinued Medications Generic Name Dose Route Start Last Admin Trade Name Freq PRN Reason Stop Dose Admin Albuterol/Ipratropium 3 ml 05/07/17 07:14 05/07/17 07:45 Duoneb 3.0-0.5 Mg/3 Ml NEB 05/07/17 07:15 3 ml ONETIME ONE Administration Sodium Chloride 1,000 mls @ 999 mls/hr 05/07/17 07:18 05/07/17 07:29 Normal Saline IV 05/07/17 08:18 999 mls/hr STAT ONE Administration Methylprednisolone Sodium Succinate 60 mg 05/07/17 07:15 05/07/17 07:46 Solu-Medrol IV 05/07/17 07:16 Not Given NOW STA Methylprednisolone Sodium Succinate 125 mg 05/07/17 07:35 05/07/17 07:36 Solu-Medrol IVPUSH 05/07/17 07:36 125 mg ONETIME ONE Administration Ondansetron HCl 4 mg 05/07/17 07:18 05/07/17 07:30 Zofran IVPUSH 05/07/17 07:19 4 mg ONETIME ONE Administration Departure - Departure Time of Disposition: 08:45 Disposition: Home, Self-Care 01 Condition: Good Clinical Impression: Asthma exacerbation - Discharge Information Prescriptions: Prednisone [IJD: predniSONE] 50 mg PO WITHBREAKFAST #5 tab Instructions: Asthma, Adult Referrals: PCP,None [Primary Care Provider] - Forms: ED Department Discharge Care Plan Goals: My general discharge The following information is given to patients seen in the emergency department who are being discharged to home. This information is to outline your options for follow-up care. We provide all patients seen in our emergency department with a follow-up referral. The need for follow-up, as well as the timing and circumstances, are variable depending upon the specifics of your emergency department visit. If you don't have a primary care physician on staff, we will provide you with a referral. We always advise you to contact your personal physician following an emergency department visit to inform them of the circumstance of the visit and for follow-up with them and/or the need for any referrals to a consulting specialist. The emergency department will also refer you to a specialist when appropriate. This referral assures that you have the opportunity for follow-up care with a specialist. All of these measure are taken in an effort to provide you with optimal care, which includes your follow-up. Under all circumstances we always encourage you to contact your private physician who remains a resource for coordinating your care. When calling for follow-up care, please make the office aware that this follow-up is from your recent emergency room visit. If for any reason you are refused follow-up, please contact the [facility] Emergency Department at and asked to speak to the emergency department charge nurse. Please return to seek further medical attention if you experience any shortness of breath, chest pain, fevers or chills. These follow-up with her primary care provider. Please take the prescription for prednisone as prescribed. - My Orders Last 24 Hours: My Active Orders 05/07/17 07:13 Saline Lock Insert [OM.PC] Stat 05/07/17 07:15 RT Aerosol Therapy [RC] ASDIRECTED Sodium Chloride 0.9% [Saline Flush] 10 ml FLUSH ASDIRECTED PRN Sodium Chloride 0.9% [Saline Flush] 2.5 ml FLUSH ASDIRECTED PRN - Assessment/Plan Last 24 Hours: My Active Orders 05/07/17 07:13 Saline Lock Insert [OM.PC] Stat 05/07/17 07:15 RT Aerosol Therapy [RC] ASDIRECTED Sodium Chloride 0.9% [Saline Flush] 10 ml FLUSH ASDIRECTED PRN Sodium Chloride 0.9% [Saline Flush] 2.5 ml FLUSH ASDIRECTED PRN
--- NOTE | 2017-05-07 08:31 | CR ---
EXAMINATION: Two-view chest (PA and Lateral views). HISTORY: Shortness of breath. FINDINGS: The trachea is midline. The cardiomediastinal silhouette is within normal limits. No pulmonary infil trates, effusions or pneumothorax. Osseous structures appear unremarkable. IMPRESSION: No acute cardiopulmonary process.
[2017-05-07 08:45] LABS: CHLORIDE,CL 110 mmol/L (98-110); SODIUM,NA 140 mmol/L (136-146)
[2017-05-07 09:02] VITALS: BP 134/68
== END 2017-05-07 08:59 | disposition home or self-care (01) ==
LOC: MW.ED 07:04
DX: J45.901 Unspecified asthma with (acute) exacerbation (principal); K21.9 Gastro-esophageal reflux disease without esophagitis; Z87.440 Personal history of urinary (tract) infections; F41.9 Anxiety disorder, unspecified; F32.9 Major depressive disorder, single episode, unspecified; F17.210 Nicotine dependence, cigarettes, uncomplicated; Z88.5 Allergy status to narcotic agent; Z88.8 Allergy status to other drugs, medicaments and biological substances; Z91.040 Latex allergy status; Z90.49 Acquired absence of other specified parts of digestive tract
CPT/HCPCS: 36415; 71020; 80053; 84484; 85025; 96361; 96374; 96375; 99285; J2405; J2930; J7040; 99284

== ENCOUNTER 2017-05-26 20:39 | Emergency (ER) | payer MEDICAID ==
[2017-05-26] MEDS ORDERED: Benzocaine 20% Topical Spray UD MUCMEM ONE (21:08)
[2017-05-26] MEDS ORDERED: Lidocaine 2% Viscous Solution 15 ML Cup PO ONE (21:08)
--- NOTE | 2017-05-26 21:12 | EDM.PDOC ---
ED HPI GENERAL MEDICAL PROBLEM - General Chief Complaint: General Stated Complaint: TOOTH INFECTION Time Seen by Provider: 05/26/17 21:00 Source of Information: Reports: Patient History Limitations: Reports: No Limitations - History of Present Illness INITIAL COMMENTS - FREE TEXT/NARRATIVE: History of present illness: 22-year-old female returning with complaints of dental pain. Patient has known dental caries and dental fractures was seen and treated here for dental abscess before but has been unable to get into a dentist for intervention.[] Review of systems: As per history of present illness and below otherwise all systems reviewed and negative. Past medical history: As per history of present illness and as reviewed below otherwise noncontributory. Surgical history: As per history of present illness and as reviewed below otherwise noncontributory. Social history: No reported history of drug or alcohol abuse. Family history: As per history of present illness and as reviewed below otherwise noncontributory. Physical exam: HEENT: Atraumatic, normocephalic, pupils reactive, negative for conjunctival pallor or scleral icterus, mucous membranes moist, throat clear, neck supple, nontender, trachea midline. Lungs: Clear to auscultation, breath sounds equal bilaterally, chest nontender. Heart: S1S2, regular, negative for clicks, rubs, or JVD. Abdomen: Soft, nondistended, nontender. Negative for masses or hepatosplenomegaly. Negative for costovertebral tenderness. Pelvis: Stable nontender. Genitourinary: Deferred. Rectal: Deferred. Extremities: Atraumatic, negative for cords or calf pain. Neurovascular unremarkable. Neuro: Awake, alert, oriented. Cranial nerves II through XII unremarkable. Cerebellum unremarkable. Motor and sensory unremarkable throughout. Exam nonfocal. Global assessment is benign save the dental caries is noted in the region of 12 through 14. Some amount of swelling and pain and guarding with opening of the mouth otherwise negative. Diagnostics: [] Therapeutics: [] Impression: [#1 dental abscess, #2 dental caries] Plan: [Dental balls, antibiotics, pain medication follow-up with dentist] Definitive disposition and diagnosis as appropriate pending reevaluation and review of above. Dental Pain Score (Numeric/FACES): 10 - Related Data Allergies Allergy/AdvReac Type Severity Reaction Status Date / Time codeine Allergy Anaphylactic Verified 05/26/17 21:04 Shock latex Allergy Rash Verified 05/26/17 21:04 meperidine HCl [From Demerol] Allergy Anaphylactic Verified 05/26/17 21:04 Shock morphine Allergy Anaphylactic Verified 05/26/17 21:04 Shock Home Meds: Home Meds Albuterol [Ventolin HFA] 2 puff INH Q2HR PRN 06/02/14 [History] ALPRAZolam [Xanax] 0.25 mg PO BEDTIME tablet 09/16/15 [Rx] Albuterol/Ipratropium [DuoNeb 3.0-0.5 MG/3 ML] 3 ml NEB Q6HRRT 01/04/16 [History ] Amoxicillin/Potassium Clav [Augmentin 875-125 Tablet] 1 each PO BID #20 tablet 05/26/17 [Rx] Past Medical History HEENT History: Reports: Allergic Rhinitis Other HEENT History: dental abcess, broken teeth, astigmatism Cardiovascular History: Reports: None Respiratory History: Reports: Asthma, Bronchitis, Recurrent, Pneumonia, Recurrent, Other (See Below) Other Respiratory History: mold in lungs. intubated 09/19/15 and flown to [place]. states being tested for AAT deficiency. 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 Musculoskeletal History: Reports: Fracture, Other (See Below) Other Musculoskeletal History: Bulging disc Neurological History: Reports: Other (See Below) Other Neuro History: tourette syndrome Psychiatric History: Reports: Anxiety, Depression, PTSD, Other (See Below) Other Psychiatric History: Paranoia Endocrine/Metabolic History: Reports: None Hematologic History: Reports: Anemia Immunologic History: Reports: None Oncologic (Cancer) History: Reports: None Dermatologic History: Reports: None - Infectious Disease History Infectious Disease History: Reports: Influenza - Past Surgical History GI Surgical History: Reports: Appendectomy, Other (See Below) Social & Family History - Family History Family Medical History: Noncontributory HEENT: Reports: Impaired Vision Cardiac: Reports: Heart Failure Respiratory: Reports: Asthma GI: Reports: None : Reports: Renal Disease/Insufficiency OBGYN: Reports: None Musculoskeletal: Reports: Arthritis Neurological: Reports: Dementia Psychiatric: Reports: Anxiety, Depression Endocrine/Metabolic: Reports: Diabetes, type II Hematologic: Reports: Anemia Dermatologic: Reports: Other (See Below) Other Dermatologic Family History: skin allergy, eczema Oncologic: Reports: Colon, Leukemia - Tobacco Use Smoking Status *Q: Current Every Day Smoker Years of Tobacco use: 10 Packs/Tins Daily: 1 Used Tobacco, but Quit: Yes Month Tobacco Last Used: june 2015 Second Hand Smoke Exposure: Yes - Caffeine Use Caffeine Use: Reports: Energy Drinks Other Caffeine Use: 1-2 energy drink per day Caffeine Use Comment: 2cups coffe/day; 2 drinks/day - Alcohol Use Days Per Week of Alcohol Use: 1 Number of Drinks Per Day: 1 Total Drinks Per Week: 1 - Recreational Drug Use Recreational Drug Use: No Drug Use in Last 12 Months: No Recreational Drug Type: Reports: Marijuana/Hashish ED ROS GENERAL - Review of Systems Review Of Systems: See Below (See history of present illness) ED EXAM, GENERAL - Physical Exam Exam: See Below (See history of present illness) Course - Vital Signs Last Recorded V/S: Last Vital Signs Temp 36.4 C 05/26/17 21:04 Pulse 75 05/26/17 21:04 Resp 18 05/26/17 21:04 BP 145/96 H 05/26/17 21:04 Pulse Ox 98 05/26/17 21:04 - Orders/Labs/Meds Meds: Medications Discontinued Medications Generic Name Dose Route Start Last Admin Trade Name Brian PRN Reason Stop Dose Admin Benzocaine 2 each 05/26/17 21:08 Hurricaine One 20% MUCMEM 05/26/17 21:09 ONETIME ONE Lidocaine HCl 15 ml 05/26/17 21:08 Xylocaine 2% Viscous PO 05/26/17 21:09 ONETIME ONE Departure - Departure Time of Disposition: 21:11 Disposition: Home, Self-Care 01 Condition: Good Clinical Impression: Dental caries, Dental abscess - Discharge Information Referrals: PCP,None [Primary Care Provider] - Additional Instructions: The following information is given to patients seen in the emergency department who are being discharged to home. This information is to outline your options for follow-up care. We provide all patients seen in our emergency department with a follow-up referral. The need for follow-up, as well as the timing and circumstances, are variable depending upon the specifics of your emergency department visit. If you don't have a primary care physician on staff, we will provide you with a referral. We always advise you to contact your personal physician following an emergency department visit to inform them of the circumstance of the visit and for follow-up with them and/or the need for any referrals to a consulting specialist. The emergency department will also refer you to a specialist when appropriate. This referral assures that you have the opportunity for follow-up care with a specialist. All of these measure are taken in an effort to provide you with optimal care, which includes your follow-up. Under all circumstances we always encourage you to contact your private physician who remains a resource for coordinating your care. When calling for follow-up care, please make the office aware that this follow-up is from your recent emergency room visit. If for any reason you are refused follow-up, please contact the [facility] Emergency Department at and asked to speak to the emergency department charge nurse. Take medication as directed Follow-up with the dentist KATELYNN as discussed Return to ED as needed as discussed
[2017-05-26 21:48] VITALS: BP 150/93
== END 2017-05-26 21:34 | disposition home or self-care (01) ==
LOC: MW.ED 20:39
DX: K04.7 Periapical abscess without sinus (principal); K02.9 Dental caries, unspecified; F17.210 Nicotine dependence, cigarettes, uncomplicated; J45.909 Unspecified asthma, uncomplicated; K21.9 Gastro-esophageal reflux disease without esophagitis; F32.9 Major depressive disorder, single episode, unspecified; Z86.2 Personal history of diseases of the blood and blood-forming organs and certain disorders involving the immune mechanism; Z87.01 Personal history of pneumonia (recurrent); Z87.440 Personal history of urinary (tract) infections; Z90.49 Acquired absence of other specified parts of digestive tract; Z88.5 Allergy status to narcotic agent; Z88.6 Allergy status to analgesic agent; Z91.040 Latex allergy status
CPT/HCPCS: 99282; A9270; 99283

== ENCOUNTER 2017-07-11 23:42 | Emergency (ER) | payer MEDICAID ==
--- NOTE | 2017-07-12 00:05 | EDM.PDOC ---
ED HPI GENERAL MEDICAL PROBLEM - General Chief Complaint: ENT Problem Stated Complaint: PT HAS TOOTHACHE Time Seen by Provider: 07/12/17 00:05 - History of Present Illness INITIAL COMMENTS - FREE TEXT/NARRATIVE: HISTORY AND PHYSICAL: History of present illness: Patient 22-year-old female presents with concern of dental pain is his left upper molar for which she missed her recent dental appointment she denies fever chills nausea vomiting or other complaints Review of systems: As per history of present illness and below otherwise all systems reviewed and negative. Past medical history: As per history of present illness and as reviewed below otherwise noncontributory. Surgical history: As per history of present illness and as reviewed below otherwise noncontributory. Social history: No reported history of drug or alcohol abuse. Family history: As per history of present illness and as reviewed below otherwise noncontributory. Physical exam: HEENT: Atraumatic, normocephalic, pupils reactive, negative for conjunctival pallor or scleral icterus, mucous membranes moist, throat clear, neck supple, nontender, trachea midline. Generally poor dentition with tenderness in the region left upper molar Lungs: Clear to auscultation, breath sounds equal bilaterally, chest nontender. Heart: S1S2, regular, negative for clicks, rubs, or JVD. Abdomen: Soft, nondistended, nontender. Negative for masses or hepatosplenomegaly. Negative for costovertebral tenderness. Pelvis: Stable nontender. Genitourinary: Deferred. Rectal: Deferred. Extremities: Atraumatic, negative for cords or calf pain. Neurovascular unremarkable. Neuro: Awake, alert, oriented. Cranial nerves II through XII unremarkable. Cerebellum unremarkable. Motor and sensory unremarkable throughout. Exam nonfocal. Diagnostics: None Therapeutics: None Impression: #1 dentalgia #2 rule out dental abscess Definitive disposition and diagnosis as appropriate pending reevaluation and review of above. Left Upper Tooth/Teeth Pain Score (Numeric/FACES): 8 - Related Data Allergies Allergy/AdvReac Type Severity Reaction Status Date / Time codeine Allergy Anaphylactic Verified 05/26/17 21:04 Shock latex Allergy Rash Verified 05/26/17 21:04 meperidine HCl [From Demerol] Allergy Anaphylactic Verified 05/26/17 21:04 Shock morphine Allergy Anaphylactic Verified 05/26/17 21:04 Shock Home Meds: Home Meds Albuterol [Ventolin HFA] 2 puff INH Q2HR PRN 06/02/14 [History] ALPRAZolam [Xanax] 0.25 mg PO BEDTIME tablet 09/16/15 [Rx] Albuterol/Ipratropium [DuoNeb 3.0-0.5 MG/3 ML] 3 ml NEB Q6HRRT 01/04/16 [History ] Amoxicillin/Potassium Clav [Augmentin 875-125 Tablet] 1 each PO BID #20 tablet 05/26/17 [Rx] Past Medical History HEENT History: Reports: Allergic Rhinitis Other HEENT History: dental abcess, broken teeth, astigmatism Cardiovascular History: Reports: None Respiratory History: Reports: Asthma, Bronchitis, Recurrent, Pneumonia, Recurrent, Other (See Below) Other Respiratory History: mold in lungs. intubated 09/19/15 and flown to [place]. states being tested for AAT deficiency. 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 Musculoskeletal History: Reports: Fracture, Other (See Below) Other Musculoskeletal History: Bulging disc Neurological History: Reports: Other (See Below) Other Neuro History: tourette syndrome Psychiatric History: Reports: Anxiety, Depression, PTSD, Other (See Below) Other Psychiatric History: Paranoia Endocrine/Metabolic History: Reports: None Hematologic History: Reports: Anemia Immunologic History: Reports: None Oncologic (Cancer) History: Reports: None Dermatologic History: Reports: None - Infectious Disease History Infectious Disease History: Reports: Influenza - Past Surgical History GI Surgical History: Reports: Appendectomy, Other (See Below) Social & Family History - Family History Family Medical History: Noncontributory HEENT: Reports: Impaired Vision Cardiac: Reports: Heart Failure Respiratory: Reports: Asthma GI: Reports: None : Reports: Renal Disease/Insufficiency OBGYN: Reports: None Musculoskeletal: Reports: Arthritis Neurological: Reports: Dementia Psychiatric: Reports: Anxiety, Depression Endocrine/Metabolic: Reports: Diabetes, type II Hematologic: Reports: Anemia Dermatologic: Reports: Other (See Below) Other Dermatologic Family History: skin allergy, eczema Oncologic: Reports: Colon, Leukemia - Tobacco Use Smoking Status *Q: Current Every Day Smoker Years of Tobacco use: 10 Packs/Tins Daily: 1 Used Tobacco, but Quit: Yes Month Tobacco Last Used: june 2015 Second Hand Smoke Exposure: Yes - Caffeine Use Caffeine Use: Reports: Energy Drinks Other Caffeine Use: 1-2 energy drink per day Caffeine Use Comment: 2cups coffe/day; 2 drinks/day - Alcohol Use Days Per Week of Alcohol Use: 1 Number of Drinks Per Day: 1 Total Drinks Per Week: 1 - Recreational Drug Use Recreational Drug Use: No Drug Use in Last 12 Months: No Recreational Drug Type: Reports: Marijuana/Hashish ED ROS GENERAL - Review of Systems Review Of Systems: ROS reveals no pertinent complaints other than HPI. ED EXAM, GENERAL - Physical Exam Exam: See Below (See dictation) Course - Vital Signs Last Recorded V/S: Last Vital Signs Temp 36.6 C 07/11/17 23:59 Pulse 76 07/11/17 23:59 Resp 17 07/11/17 23:59 BP 167/69 H 07/11/17 23:59 Pulse Ox 94 L 07/11/17 23:59 Departure - Departure Time of Disposition: 00:04 Disposition: Home, Self-Care 01 Condition: Good Clinical Impression: Dental abscess, Dentalgia - Discharge Information Referrals: PCP,None [Primary Care Provider] - Additional Instructions: The following information is given to patients seen in the emergency department who are being discharged to home. This information is to outline your options for follow-up care. We provide all patients seen in our emergency department with a follow-up referral. The need for follow-up, as well as the timing and circumstances, are variable depending upon the specifics of your emergency department visit. If you don't have a primary care physician on staff, we will provide you with a referral. We always advise you to contact your personal physician following an emergency department visit to inform them of the circumstance of the visit and for follow-up with them and/or the need for any referrals to a consulting specialist. The emergency department will also refer you to a specialist when appropriate. This referral assures that you have the opportunity for followup care with a specialist. All of these measure are taken in an effort to provide you with optimal care, which includes your followup. Under all circumstances we always encourage you to contact your private physician who remains a resource for coordinating your care. When calling for followup care, please make the office aware that this follow-up is from your recent emergency room visit. If for any reason you are refused follow-up, please contact the [facility] emergency department at and asked to speak to the emergency department charge nurse. Georgette Hollis tramadol as prescribed follow-up dentist as discussed return as needed as discussed
[2017-07-12 00:43] VITALS: BP 118/72
== END 2017-07-12 00:39 | disposition home or self-care (01) ==
LOC: MW.ED 23:42
DX: K04.7 Periapical abscess without sinus (principal); F17.210 Nicotine dependence, cigarettes, uncomplicated; Z88.5 Allergy status to narcotic agent; Z91.040 Latex allergy status
CPT/HCPCS: 99283

== ENCOUNTER 2017-07-26 17:47 | Emergency (ER) | payer MEDICAID ==
[2017-07-26] MEDS ORDERED: Acetaminophen/HYDROcodone 325-7.5 MG Tab PO ONE (18:32)
[2017-07-26] MEDS ORDERED: Lidocaine 2% Viscous Solution 15 ML Cup PO ONE (18:32)
[2017-07-26] MEDS ORDERED: Benzocaine 20% Topical Spray UD MUCMEM ONE (18:32)
--- NOTE | 2017-07-26 18:36 | EDM.PDOC ---
ED HPI GENERAL MEDICAL PROBLEM - General Chief Complaint: General Stated Complaint: PT HAS TOOTHACHE Time Seen by Provider: 07/26/17 18:03 - History of Present Illness INITIAL COMMENTS - FREE TEXT/NARRATIVE: HISTORY AND PHYSICAL: History of present illness: The patient is a 22-year-old female who is well-known to the ER for frequent visits here for multiple problems presents with complaints of pain to the right upper molar tooth area where there is an infection and a cavity. She states that she saw the dentist earlier today who did a block and did some work on it but he needs to call the infection down and we'll see her again next Wednesday. He gave her prescription for penicillin but did not give her any pain meds and now that her block is worn off she thinks she is having a lot of pain. She otherwise is healthy with no systemic complaints. He did not give her prescription for any pain medication Review of systems: As per history of present illness and below otherwise all systems reviewed and negative. Past medical history: As per history of present illness and as reviewed below otherwise noncontributory. Surgical history: As per history of present illness and as reviewed below otherwise noncontributory. Social history: No reported history of drug or alcohol abuse. Family history: As per history of present illness and as reviewed below otherwise noncontributory. Physical exam: : Well-developed well-nourished female is nontoxic and vital signs were noted by me HEENT: Atraumatic, normocephalic, pupils reactive, negative for conjunctival pallor or scleral icterus, mucous membranes moist, throat clear, neck supple, nontender, trachea midline. Around the left upper molar area there is soft tissue swelling and gum swelling without fluctuance there is a visible dental caries seen. There is tenderness with palpation. There is no cervical adenopathy or nuchal rigidity. Lungs: Clear to auscultation, breath sounds equal bilaterally, chest nontender. Heart: S1S2, regular rate and rhythm no overt murmurs Abdomen: Soft, nondistended, nontender. NABS Pelvis: Deferred Genitourinary: Deferred. Rectal: Deferred. Extremities: Atraumatic, range of motion grossly Neurovascular unremarkable. Neuro: Awake, alert, oriented. Cranial nerves II through XII unremarkable. Cerebellum unremarkable. Motor and sensory unremarkable throughout. Exam nonfocal. Diagnostics: [] Therapeutics: Dental balls, Cameron 1 Impression: Dental pain/infection Definitive disposition and diagnosis as appropriate pending reevaluation and review of above. Left Tooth/Teeth Pain Score (Numeric/FACES): 7 - Related Data Allergies Allergy/AdvReac Type Severity Reaction Status Date / Time codeine Allergy Anaphylactic Verified 07/26/17 17:55 Shock latex Allergy Rash Verified 07/26/17 17:55 meperidine HCl [From Demerol] Allergy Anaphylactic Verified 07/26/17 17:55 Shock morphine Allergy Anaphylactic Verified 07/26/17 17:55 Shock Home Meds: Home Meds Albuterol [Ventolin HFA] 2 puff INH Q2HR PRN 06/02/14 [History] ALPRAZolam [Xanax] 0.25 mg PO BEDTIME tablet 09/16/15 [Rx] Albuterol/Ipratropium [DuoNeb 3.0-0.5 MG/3 ML] 3 ml NEB Q6HRRT 01/04/16 [History ] Fluticasone/Salmeterol [Advair 250-50 Diskus] 1 each IH DAILY 07/26/17 [History] Penicillin V Potassium 500 mg PO Q6HR 07/26/17 [History] Past Medical History HEENT History: Reports: Allergic Rhinitis Other HEENT History: dental abcess, broken teeth, astigmatism Cardiovascular History: Reports: None Respiratory History: Reports: Asthma, Bronchitis, Recurrent, Pneumonia, Recurrent, Other (See Below) Other Respiratory History: mold in lungs. intubated 09/19/15 and flown to [place]. states being tested for AAT deficiency. 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 Musculoskeletal History: Reports: Fracture, Other (See Below) Other Musculoskeletal History: Bulging disc Neurological History: Reports: Other (See Below) Other Neuro History: tourette syndrome Psychiatric History: Reports: Anxiety, Depression, PTSD, Other (See Below) Other Psychiatric History: Paranoia Endocrine/Metabolic History: Reports: None Hematologic History: Reports: Anemia Immunologic History: Reports: None Oncologic (Cancer) History: Reports: None Dermatologic History: Reports: None - Infectious Disease History Infectious Disease History: Reports: Influenza - Past Surgical History Head Surgeries/Procedures: Reports: None GI Surgical History: Reports: Appendectomy, Other (See Below) Social & Family History - Family History Family Medical History: Noncontributory HEENT: Reports: Impaired Vision Cardiac: Reports: Heart Failure Respiratory: Reports: Asthma GI: Reports: None : Reports: Renal Disease/Insufficiency OBGYN: Reports: None Musculoskeletal: Reports: Arthritis Neurological: Reports: Dementia Psychiatric: Reports: Anxiety, Depression Endocrine/Metabolic: Reports: Diabetes, type II Hematologic: Reports: Anemia Dermatologic: Reports: Other (See Below) Other Dermatologic Family History: skin allergy, eczema Oncologic: Reports: Colon, Leukemia - Tobacco Use Smoking Status *Q: Current Every Day Smoker Years of Tobacco use: 9 Packs/Tins Daily: 0.5 Used Tobacco, but Quit: Yes Month Tobacco Last Used: june 2015 Second Hand Smoke Exposure: Yes - Caffeine Use Caffeine Use: Reports: Coffee, Soda Other Caffeine Use: 1-2 energy drink per day Caffeine Use Comment: 2cups coffe/day; 2 drinks/day - Alcohol Use Days Per Week of Alcohol Use: 1 Number of Drinks Per Day: 1 Total Drinks Per Week: 1 - Recreational Drug Use Recreational Drug Use: No Drug Use in Last 12 Months: No Recreational Drug Type: Reports: Marijuana/Hashish ED ROS GENERAL - Review of Systems Review Of Systems: ROS reveals no pertinent complaints other than HPI. ED EXAM, GENERAL - Physical Exam Exam: See Below (See dictation) Course - Vital Signs Last Recorded V/S: Last Vital Signs Temp 36.7 C 07/26/17 18:06 Pulse 63 07/26/17 18:06 Resp 18 07/26/17 18:06 BP 156/86 H 07/26/17 18:06 Pulse Ox 94 L 07/26/17 18:06 - Orders/Labs/Meds Orders: Active Orders 24 hr Category Date Time Status Acetaminophen/HYDROcodone [Cameron 325-7.5 MG] Med 07/26/17 18:32 Once 1 tab PO ONETIME ONE Benzocaine [Hurricaine One 20%] Med 07/26/17 18:32 Once 2 each MUCMEM ONETIME ONE Lidocaine 2% [Xylocaine 2% Viscous] Med 07/26/17 18:32 Once 15 ml PO ONETIME ONE Medication Orders Benzocaine (Hurricaine One 20%) 2 each MUCMEM ONETIME ONE Stop: 07/26/17 18:33 Lidocaine HCl (Xylocaine 2% Viscous) 15 ml PO ONETIME ONE Stop: 07/26/17 18:33 Meds: Medications Generic Name Dose Route Start Last Admin Trade Name Brian PRN Reason Stop Dose Admin Benzocaine 2 each 07/26/17 18:32 Hurricaine One 20% MUCMEM 07/26/17 18:33 ONETIME ONE Lidocaine HCl 15 ml 07/26/17 18:32 Xylocaine 2% Viscous PO 07/26/17 18:33 ONETIME ONE Departure - Departure Time of Disposition: 18:35 Disposition: Home, Self-Care 01 Condition: Good Clinical Impression: Pain, dental, Dental infection - Discharge Information Additional Instructions: The following information is given to patients seen in the emergency department who are being discharged to home. This information is to outline your options for follow-up care. We provide all patients seen in our emergency department with a follow-up referral. The need for follow-up, as well as the timing and circumstances, are variable depending upon the specifics of your emergency department visit. If you don't have a primary care physician on staff, we will provide you with a referral. We always advise you to contact your personal physician following an emergency department visit to inform them of the circumstance of the visit and for follow-up with them and/or the need for any referrals to a consulting specialist. The emergency department will also refer you to a specialist when appropriate. This referral assures that you have the opportunity for followup care with a specialist. All of these measure are taken in an effort to provide you with optimal care, which includes your followup. Under all circumstances we always encourage you to contact your private physician who remains a resource for coordinating your care. When calling for followup care, please make the office aware that this follow-up is from your recent emergency room visit. If for any reason you are refused follow-up, please contact the [facility] emergency department at and ask to speak to the emergency department charge nurse. [facility] Primary care- Internal Medicine and Family [address] [id number] Please continue to take the antibiotics you have been given by the dentist until they're finished. Use dental balls given to you in the ER as shown and use [id number] Tylenol and ibuprofen for pain. Apply ice to face to reduce swelling. Please contact her dentist tomorrow for persistent pain and for further care and evaluation by him. Please also follow up with her provider in the clinic. Return to ER as needed and as discussed - My Orders Last 24 Hours: My Active Orders 07/26/17 18:32 Acetaminophen/HYDROcodone [Cameron 325-7.5 MG] 1 tab PO ONETIME ONE Benzocaine [Hurricaine One 20%] 2 each MUCMEM ONETIME ONE Lidocaine 2% [Xylocaine 2% Viscous] 15 ml PO ONETIME ONE - Assessment/Plan Last 24 Hours: My Active Orders 07/26/17 18:32 Acetaminophen/HYDROcodone [Cameron 325-7.5 MG] 1 tab PO ONETIME ONE Benzocaine [Hurricaine One 20%] 2 each MUCMEM ONETIME ONE Lidocaine 2% [Xylocaine 2% Viscous] 15 ml PO ONETIME ONE
[2017-07-26 18:43] VITALS: BP 156/86
== END 2017-07-26 19:04 | disposition home or self-care (01) ==
LOC: MW.ED 17:47
DX: K04.7 Periapical abscess without sinus (principal); Z88.5 Allergy status to narcotic agent; F17.210 Nicotine dependence, cigarettes, uncomplicated
CPT/HCPCS: 99282; A9270

== ENCOUNTER 2017-09-11 21:38 | Emergency (ER) | payer MEDICAID ==
[2017-09-11] MEDS ORDERED: Ondansetron 4 MG/2 ML SDV IVPUSH ONE (21:49)
[2017-09-11] MEDS ORDERED: Ketorolac 30 MG/ML SDV IVPUSH ONE (21:49)
[2017-09-11] MEDS ORDERED: Sodium Chloride 0.9% 1,000 ML IV ONE (21:49)
--- NOTE | 2017-09-11 21:51 | EDM.PDOC ---
ED HPI GENERAL MEDICAL PROBLEM - General Chief Complaint: Gastrointestinal Problem Stated Complaint: NAUSEA/VOMITING/BACK PAIN Time Seen by Provider: 09/11/17 21:42 - History of Present Illness INITIAL COMMENTS - FREE TEXT/NARRATIVE: HISTORY AND PHYSICAL: History of present illness: Patient is 22-year-old female presents with a concern of nausea vomiting abdominal cramping general body aches over the last several days she denies vaginal discharge or irregular bleeding or urinary symptoms. Review of systems: As per history of present illness and below otherwise all systems reviewed and negative. Past medical history: As per history of present illness and as reviewed below otherwise noncontributory. Surgical history: As per history of present illness and as reviewed below otherwise noncontributory. Social history: No reported history of drug or alcohol abuse. Family history: As per history of present illness and as reviewed below otherwise noncontributory. Physical exam: HEENT: Atraumatic, normocephalic, pupils reactive, negative for conjunctival pallor or scleral icterus, mucous membranes dry, throat clear, neck supple, nontender, trachea midline. Lungs: Clear to auscultation, breath sounds equal bilaterally, chest nontender. Heart: S1S2, regular, negative for clicks, rubs, or JVD. Abdomen: Soft, nondistended, nontender. Negative for masses or hepatosplenomegaly. Negative for costovertebral tenderness. Pelvis: Stable nontender. Genitourinary: Deferred. Rectal: Deferred. Extremities: Atraumatic, negative for cords or calf pain. Neurovascular unremarkable. Neuro: Awake, alert, oriented. Cranial nerves II through XII unremarkable. Cerebellum unremarkable. Motor and sensory unremarkable throughout. Exam nonfocal. Diagnostics: CBC CMP lipase UA hCG influenza screen Therapeutics: Normal saline 1 L bolus Toradol 30 mg IV Zofran 4 mg IV Impression: #1 vomiting with dehydration #2 probable viral syndrome Definitive disposition and diagnosis as appropriate pending reevaluation and review of above. Back Pain Score (Numeric/FACES): 5 - Related Data Allergies Allergy/AdvReac Type Severity Reaction Status Date / Time codeine Allergy Anaphylactic Verified 09/11/17 21:52 Shock latex Allergy Rash Verified 09/11/17 21:52 meperidine HCl [From Demerol] Allergy Anaphylactic Verified 09/11/17 21:52 Shock morphine Allergy Anaphylactic Verified 09/11/17 21:52 Shock Home Meds: Home Meds Albuterol [Ventolin HFA] 2 puff INH Q2HR PRN 06/02/14 [History] ALPRAZolam [Xanax] 0.25 mg PO BEDTIME tablet 09/16/15 [Rx] Albuterol/Ipratropium [DuoNeb 3.0-0.5 MG/3 ML] 3 ml NEB Q6HRRT 01/04/16 [History ] Fluticasone/Salmeterol [Advair 250-50 Diskus] 1 each IH DAILY 07/26/17 [History] Past Medical History HEENT History: Reports: Allergic Rhinitis Other HEENT History: dental abcess, broken teeth, astigmatism Cardiovascular History: Reports: None Respiratory History: Reports: Asthma, Bronchitis, Recurrent, Pneumonia, Recurrent, Other (See Below) Other Respiratory History: mold in lungs. intubated 09/19/15 and flown to [place]. states being tested for AAT deficiency. Gastrointestinal History: Reports: Chronic Constipation, GERD, Other (See Below) Other Gastrointestinal History: constipation a chronic issue since intestinal growth removed Genitourinary History: Reports: UTI, Recurrent [employer] LIAISON History: Reports: None Musculoskeletal History: Reports: Fracture, Other (See Below) Other Musculoskeletal History: Bulging disc Neurological History: Reports: Other (See Below) Other Neuro History: tourette syndrome Psychiatric History: Reports: Anxiety, Depression, PTSD, Other (See Below) Other Psychiatric History: Paranoia Endocrine/Metabolic History: Reports: None Hematologic History: Reports: Anemia Immunologic History: Reports: None Oncologic (Cancer) History: Reports: None Dermatologic History: Reports: None - Infectious Disease History Infectious Disease History: Reports: Influenza - Past Surgical History Head Surgeries/Procedures: Reports: None GI Surgical History: Reports: Appendectomy, Other (See Below) Social & Family History - Family History Family Medical History: Noncontributory HEENT: Reports: Impaired Vision Cardiac: Reports: Heart Failure Respiratory: Reports: Asthma GI: Reports: None : Reports: Renal Disease/Insufficiency OBGYN: Reports: None Musculoskeletal: Reports: Arthritis Neurological: Reports: Dementia Psychiatric: Reports: Anxiety, Depression Endocrine/Metabolic: Reports: Diabetes, type II Hematologic: Reports: Anemia Dermatologic: Reports: Other (See Below) Other Dermatologic Family History: skin allergy, eczema Oncologic: Reports: Colon, Leukemia - Tobacco Use Smoking Status *Q: Current Every Day Smoker Years of Tobacco use: 9 Packs/Tins Daily: 0.5 Used Tobacco, but Quit: Yes Month Tobacco Last Used: june 2015 Second Hand Smoke Exposure: Yes - Caffeine Use Caffeine Use: Reports: Coffee, Soda Other Caffeine Use: 1-2 energy drink per day Caffeine Use Comment: 2cups coffe/day; 2 drinks/day - Alcohol Use Days Per Week of Alcohol Use: 1 Number of Drinks Per Day: 1 Total Drinks Per Week: 1 - Recreational Drug Use Recreational Drug Use: No Drug Use in Last 12 Months: No Recreational Drug Type: Reports: Marijuana/Hashish ED ROS GENERAL - Review of Systems Review Of Systems: ROS reveals no pertinent complaints other than HPI. ED EXAM, GENERAL - Physical Exam Exam: See Below (See dictation) Course - Vital Signs Last Recorded V/S: Last Vital Signs Temp 36.9 C 09/11/17 23:44 Pulse 65 09/11/17 23:44 Resp 18 09/11/17 23:44 BP 123/70 09/11/17 23:44 Pulse Ox 98 09/11/17 23:44 - Orders/Labs/Meds Labs: Laboratory Tests 09/11/17 09/11/17 09/11/17 Range/Units 22:00 22:10 22:10 WBC 10.01 (4.0-11.0) K/uL RBC 4.22 L (4.30-5.90) M/uL Hgb 12.8 (12.0-16.0) g/dL Hct 37.5 (36.0-46.0) % MCV 88.9 (80.0-98.0) fL MCH 30.3 (27.0-32.0) pg MCHC 34.1 (31.0-37.0) g/dL RDW Std Deviation 44.4 (28.0-62.0) fl RDW Coeff of Jhon 14 (11.0-15.0) % Plt Count 364 (150-400) K/uL MPV 9.50 (7.40-12.00) fL Neut % (Auto) 76.7 (48.0-80.0) % Lymph % (Auto) 13.4 L (16.0-40.0) % Briscoe % (Auto) 7.9 (0.0-15.0) % Eos % (Auto) 1.9 (0.0-7.0) % Baso % (Auto) 0.1 (0.0-1.5) % Neut # (Auto) 7.7 H (1.4-5.7) K/uL Lymph # (Auto) 1.3 (0.6-2.4) K/uL Briscoe # (Auto) 0.8 (0.0-0.8) K/uL Eos # (Auto) 0.2 (0.0-0.7) K/uL Baso # (Auto) 0.0 (0.0-0.1) K/uL Nucleated RBC % 0.0 /100WBC Nucleated RBCs # 0 K/uL Sodium 137 (136-146) mmol/L Potassium 3.8 (3.5-5.1) mmol/L Chloride 108 (98-110) mmol/L Carbon Dioxide 18 L (21-31) mmol/L BUN 9 (6.0-23.0) mg/dL Creatinine 0.8 (0.6-1.5) mg/dL Est Cr Clr Drug Dosing TNP Estimated GFR (MDRD) > 60.0 ml/min Glucose 110 (60-110) mg/dL Calcium 9.1 (8.8-10.8) mg/dL Total Bilirubin 0.3 (0.1-1.5) mg/dL AST 14 (5-40) IU/L ALT 14 (8-54) IU/L Alkaline Phosphatase 56 (40-150) Total Protein 7.3 (6.0-8.0) g/dL Albumin 4.1 (3.5-5.0) g/dL Globulin 3.2 (2.0-3.5) g/dL Albumin/Globulin Ratio 1.3 (1.3-2.8) Lipase 11 (7-80) U/L HCG, Qual (NEG) Urine Color DARK YELLOW Urine Appearance CLEAR Urine pH 7.5 (5.0-8.0) Ur Specific L[place]y 1.020 (1.001-1.035) Urine Protein TRACE (NEGATIVE) mg/dL Urine Glucose (UA) NEGATIVE (NEGATIVE) mg/dL Urine Ketones TRACE H (NEGATIVE) mg/dL Urine Occult Blood NEGATIVE (NEGATIVE) Urine Nitrite NEGATIVE (NEGATIVE) Urine Bilirubin NEGATIVE (NEGATIVE) Urine Urobilinogen 2.0 H (<2.0) EU/dL Ur Leukocyte Esterase NEGATIVE (NEGATIVE) Urine RBC 0-2 (0-2/HPF) Urine WBC 1-3 (0-5/HPF) Ur Epithelial Cells FEW (NONE-FEW) Urine Bacteria FEW (NEGATIVE) Urine Mucus RARE (NONE-MOD) 09/11/17 Range/Units 22:10 WBC (4.0-11.0) K/uL RBC (4.30-5.90) M/uL Hgb (12.0-16.0) g/dL Hct (36.0-46.0) % MCV (80.0-98.0) fL MCH (27.0-32.0) pg MCHC (31.0-37.0) g/dL RDW Std Deviation (28.0-62.0) fl RDW Coeff of Jhon (11.0-15.0) % Plt Count (150-400) K/uL MPV (7.40-12.00) fL Neut % (Auto) (48.0-80.0) % Lymph % (Auto) (16.0-40.0) % Briscoe % (Auto) (0.0-15.0) % Eos % (Auto) (0.0-7.0) % Baso % (Auto) (0.0-1.5) % Neut # (Auto) (1.4-5.7) K/uL Lymph # (Auto) (0.6-2.4) K/uL Briscoe # (Auto) (0.0-0.8) K/uL Eos # (Auto) (0.0-0.7) K/uL Baso # (Auto) (0.0-0.1) K/uL Nucleated RBC % /100WBC Nucleated RBCs # K/uL Sodium (136-146) mmol/L Potassium (3.5-5.1) mmol/L Chloride (98-110) mmol/L Carbon Dioxide (21-31) mmol/L BUN (6.0-23.0) mg/dL Creatinine (0.6-1.5) mg/dL Est Cr Clr Drug Dosing Estimated GFR (MDRD) ml/min Glucose (60-110) mg/dL Calcium (8.8-10.8) mg/dL Total Bilirubin (0.1-1.5) mg/dL AST (5-40) IU/L ALT (8-54) IU/L Alkaline Phosphatase (40-150) Total Protein (6.0-8.0) g/dL Albumin (3.5-5.0) g/dL Globulin (2.0-3.5) g/dL Albumin/Globulin Ratio (1.3-2.8) Lipase (7-80) U/L HCG, Qual NEGATIVE (NEG) Urine Color Urine Appearance Urine pH (5.0-8.0) Ur Specific L[place]y (1.001-1.035) Urine Protein (NEGATIVE) mg/dL Urine Glucose (UA) (NEGATIVE) mg/dL Urine Ketones (NEGATIVE) mg/dL Urine Occult Blood (NEGATIVE) Urine Nitrite (NEGATIVE) Urine Bilirubin (NEGATIVE) Urine Urobilinogen (<2.0) EU/dL Ur Leukocyte Esterase (NEGATIVE) Urine RBC (0-2/HPF) Urine WBC (0-5/HPF) Ur Epithelial Cells (NONE-FEW) Urine Bacteria (NEGATIVE) Urine Mucus (NONE-MOD) Meds: Medications Discontinued Medications Generic Name Dose Route Start Last Admin Trade Name Freq PRN Reason Stop Dose Admin Sodium Chloride 1,000 mls @ 999 mls/hr 09/11/17 21:49 09/11/17 22:03 Normal Saline IV 09/11/17 22:49 999 mls/hr STAT ONE Administration Ketorolac Tromethamine 30 mg 09/11/17 21:49 09/11/17 22:04 Toradol IVPUSH 09/11/17 21:50 30 mg ONETIME ONE Administration Ondansetron HCl 4 mg 09/11/17 21:49 09/11/17 22:03 Zofran IVPUSH 09/11/17 21:50 4 mg ONETIME ONE Administration Departure - Departure Time of Disposition: 01:00 Disposition: Home, Self-Care 01 Condition: Good Clinical Impression: Vomiting, Viral syndrome - Discharge Information Instructions: Viral Respiratory Infection, [id number] Referrals: Akshat Xiong MD [Primary Care Provider] - Forms: ED Department Discharge
[2017-09-11 22:42] LABS: CHLORIDE,CL 108 mmol/L (98-110); SODIUM,NA 137 mmol/L (136-146)
[2017-09-11 23:46] VITALS: BP 123/70
== END 2017-09-11 23:55 | disposition home or self-care (01) ==
LOC: MW.ED 21:38
DX: E86.0 Dehydration (principal); B34.9 Viral infection, unspecified; F17.210 Nicotine dependence, cigarettes, uncomplicated; Z88.5 Allergy status to narcotic agent; Z91.040 Latex allergy status; Z88.8 Allergy status to other drugs, medicaments and biological substances; Z79.899 Other long term (current) drug therapy
CPT/HCPCS: 36415; 80053; 81001; 83690; 84703; 85025; 87804; 96361; 96374; 96375; 99283; J1885; J2405; J7040

== ENCOUNTER 2017-09-22 21:27 | Emergency (ER) | payer MEDICAID ==
[2017-09-22] MEDS ORDERED: Albuterol/Ipratropium 3.0-0.5 MG/3 ML Neb Soln NEB ONE (21:55)
--- NOTE | 2017-09-22 21:56 | EDM.PDOC ---
ED HPI GENERAL MEDICAL PROBLEM - General Chief Complaint: Respiratory Problem Stated Complaint: COUGH/CONGESTION TROUBLE BREATHING Time Seen by Provider: 09/22/17 21:55 Source of Information: Reports: Patient - History of Present Illness INITIAL COMMENTS - FREE TEXT/NARRATIVE: HISTORY AND PHYSICAL: History of present illness: [Patient with asthma with intermittent use of home oxygen provided by her primary care presents with cough wheeze shortness of breath by private vehicle She has asthma on Advair and nebs at home as well she has been smoking up to 2 days prior and presents as above No distress no retractions or accessory muscles No fever nausea vomiting chills sweats ] Review of systems: As per history of present illness and below otherwise all systems reviewed and negative. Past medical history: As per history of present illness and as reviewed below otherwise noncontributory. Surgical history: As per history of present illness and as reviewed below otherwise noncontributory. Social history: No reported history of drug or alcohol abuse. Family history: As per history of present illness and as reviewed below otherwise noncontributory. Physical exam: HEENT: Atraumatic, normocephalic, pupils reactive, negative for conjunctival pallor or scleral icterus, mucous membranes moist, throat clear, neck supple, nontender, trachea midline. Lungs: Clear to auscultation, breath sounds equal bilaterally, chest nontender. Post DuoNeb and Solu-Medrol Heart: S1S2, regular, negative for clicks, rubs, or JVD. Abdomen: Soft, nondistended, nontender. Negative for masses or hepatosplenomegaly. Negative for costovertebral tenderness. Pelvis: Stable nontender. Genitourinary: Deferred. Rectal: Deferred. Extremities: Atraumatic, negative for cords or calf pain. Neurovascular unremarkable. Neuro: Awake, alert, oriented. Cranial nerves II through XII unremarkable. Cerebellum unremarkable. Motor and sensory unremarkable throughout. Exam nonfocal. Diagnostics: [Chest 2 views Influenza Ambulatory O2 sat 94% ] Therapeutics: [DuoNeb Solu-Medrol 125 mg IM Z-Stan Medrol Dosepak The continue home medications Impression: [Asthma exacerbation] Definitive disposition and diagnosis as appropriate pending reevaluation and review of above. - Related Data Allergies Allergy/AdvReac Type Severity Reaction Status Date / Time codeine Allergy Anaphylactic Verified 09/22/17 21:52 Shock latex Allergy Rash Verified 09/22/17 21:52 meperidine HCl [From Demerol] Allergy Anaphylactic Verified 09/22/17 21:52 Shock morphine Allergy Anaphylactic Verified 09/22/17 21:52 Shock Home Meds: Home Meds Albuterol [Ventolin HFA] 2 puff INH Q2HR PRN 06/02/14 [History] ALPRAZolam [Xanax] 0.25 mg PO BEDTIME tablet 09/16/15 [Rx] Albuterol/Ipratropium [DuoNeb 3.0-0.5 MG/3 ML] 3 ml NEB Q6HRRT 01/04/16 [History ] Fluticasone/Salmeterol [Advair 250-50 Diskus] 1 each IH DAILY 07/26/17 [History] Past Medical History HEENT History: Reports: Allergic Rhinitis Other HEENT History: dental abcess, broken teeth, astigmatism Cardiovascular History: Reports: None Respiratory History: Reports: Asthma, Bronchitis, Recurrent, Pneumonia, Recurrent, Other (See Below) Other Respiratory History: mold in lungs. intubated 09/19/15 and flown to [place]. states being tested for AAT deficiency. Gastrointestinal History: Reports: Chronic Constipation, GERD, Other (See Below) Other Gastrointestinal History: constipation a chronic issue since intestinal growth removed Genitourinary History: Reports: UTI, Recurrent PEDIATRIC CLINICAL DIETICIAN History: Reports: None Musculoskeletal History: Reports: Fracture, Other (See Below) Other Musculoskeletal History: Bulging disc Neurological History: Reports: Other (See Below) Other Neuro History: tourette syndrome Psychiatric History: Reports: Anxiety, Depression, PTSD, Other (See Below) Other Psychiatric History: Paranoia Endocrine/Metabolic History: Reports: None Hematologic History: Reports: Anemia Immunologic History: Reports: None Oncologic (Cancer) History: Reports: None Dermatologic History: Reports: None - Infectious Disease History Infectious Disease History: Reports: Influenza - Past Surgical History Head Surgeries/Procedures: Reports: None GI Surgical History: Reports: Appendectomy, Other (See Below) Social & Family History - Family History Family Medical History: Noncontributory HEENT: Reports: Impaired Vision Cardiac: Reports: Heart Failure Respiratory: Reports: Asthma GI: Reports: None : Reports: Renal Disease/Insufficiency OBGYN: Reports: None Musculoskeletal: Reports: Arthritis Neurological: Reports: Dementia Psychiatric: Reports: Anxiety, Depression Endocrine/Metabolic: Reports: Diabetes, type II Hematologic: Reports: Anemia Dermatologic: Reports: Other (See Below) Other Dermatologic Family History: skin allergy, eczema Oncologic: Reports: Colon, Leukemia - Tobacco Use Smoking Status *Q: Current Every Day Smoker Years of Tobacco use: 9 Packs/Tins Daily: 0.5 Used Tobacco, but Quit: Yes Month Tobacco Last Used: june 2015 Second Hand Smoke Exposure: Yes - Caffeine Use Caffeine Use: Reports: Coffee, Soda Other Caffeine Use: 1-2 energy drink per day Caffeine Use Comment: 2cups coffe/day; 2 drinks/day - Alcohol Use Days Per Week of Alcohol Use: 1 Number of Drinks Per Day: 1 Total Drinks Per Week: 1 - Recreational Drug Use Recreational Drug Use: No Drug Use in Last 12 Months: No Recreational Drug Type: Reports: Marijuana/Hashish ED ROS GENERAL - Review of Systems Review Of Systems: ROS reveals no pertinent complaints other than HPI. ED EXAM, GENERAL - Physical Exam Exam: See Below Course - Vital Signs Last Recorded V/S: Last Vital Signs Temp 97.2 F 09/22/17 21:27 Pulse 108 H 09/22/17 21:27 Resp 28 H 09/22/17 21:27 BP 115/68 09/22/17 21:27 Pulse Ox 95 09/22/17 21:27 - Orders/Labs/Meds Orders: Active Orders 24 hr Category Date Time Status RT Aerosol Therapy [RC] ASDIRECTED Care 09/22/17 21:55 Active Chest 2V [CR] Stat Exams 09/22/17 21:54 Taken Labs: Laboratory Tests 09/22/17 Range/Units 22:10 Urine HCG, Qual NEGATIVE (NEGATIVE) Meds: Medications Discontinued Medications Generic Name Dose Route Start Last Admin Trade Name Saulq PRN Reason Stop Dose Admin Albuterol/Ipratropium 3 ml 09/22/17 21:55 09/22/17 22:19 Duoneb 3.0-0.5 Mg/3 Ml NEB 09/22/17 21:56 3 ml ONETIME ONE Administration Methylprednisolone Sodium Succinate 125 mg 09/22/17 21:55 09/22/17 22:25 Solu-Medrol IVPUSH 09/22/17 21:56 Not Given ONETIME ONE Methylprednisolone Sodium Succinate 125 mg 09/22/17 22:23 01/03/18 22:24 Solu-Medrol IM 09/22/17 22:24 125 mg ONETIME ONE Administration Departure - Departure Time of Disposition: 00:04 Disposition: Home, Self-Care 01 Condition: Good Clinical Impression: Asthma exacerbation - Discharge Information Referrals: PCP,None [Primary Care Provider] - Forms: ED Department Discharge Additional Instructions: The following information is given to patients seen in the emergency department who are being discharged to home. This information is to outline your options for follow-up care. We provide all patients seen in our emergency department with a follow-up referral. The need for follow-up, as well as the timing and circumstances, are variable depending upon the specifics of your emergency department visit. If you don't have a primary care physician on staff, we will provide you with a referral. We always advise you to contact your personal physician following an emergency department visit to inform them of the circumstance of the visit and for follow-up with them and/or the need for any referrals to a consulting specialist. The emergency department will also refer you to a specialist when appropriate. This referral assures that you have the opportunity for follow-up care with a specialist. All of these measure are taken in an effort to provide you with optimal care, which includes your follow-up. Under all circumstances we always encourage you to contact your private physician who remains a resource for coordinating your care. When calling for follow-up care, please make the office aware that this follow-up is from your recent emergency room visit. If for any reason you are refused follow-up, please contact the [facility] emergency department at and asked to speak to the emergency department charge nurse. - My Orders Last 24 Hours: My Active Orders 09/22/17 21:54 Chest 2V [CR] Stat 09/22/17 21:55 RT Aerosol Therapy [RC] ASDIRECTED - Assessment/Plan Last 24 Hours: My Active Orders 09/22/17 21:54 Chest 2V [CR] Stat 09/22/17 21:55 RT Aerosol Therapy [RC] ASDIRECTED
[2017-09-22] MEDS: methylPREDNISolone Sodium Succinate 125 MG/2 ML SDV IVPUSH ONE ×3 (22:19→22:25)
[2017-09-22] MEDS ORDERED: methylPREDNISolone Sodium Succinate 125 MG/2 ML SDV IM ONE (22:23)
[2017-09-23 00:10] VITALS: BP 144/107
--- NOTE | 2017-09-23 09:11 | CR ---
EXAM DATE: 09/22/17 PATIENT'S AGE: 22 Patient: [facility] Facility: [place], [place] Site . Site : 1995 Study: XRay Chest [id number]/3/[id number] 11:11:53 PM Ordering Physician: Gertrude Mays Final Report: INDICATION: Chest pain, shortness of breath. TECHNIQUE: Chest radiograph 2 views COMPARISON: 07/29/2017. FINDINGS: Cardiovascular and mediastinum: The heart silhouette is normal in size and morphology. The mediastinum is normal in appearance. Lungs and pleural spaces: Both lungs are unremarkable in appearance. No sign of pleural effusion seen. No pneumothorax is identified. Bones and soft tissues: No significant findings. IMPRESSION: 1. No acute cardiopulmonary disease is seen. Dictated by Sae Cowart MD @ 09/22/2017 11:18:44 PM Dictated by: Sae Cowart MD @ 09/22/2017 23:18:49 (Electronic Signature) Report Signed by Proxy. [facility] C[facility]ERYamilet
== END 2017-09-23 00:16 | disposition home or self-care (01) ==
LOC: MW.ED 21:27
DX: J45.901 Unspecified asthma with (acute) exacerbation (principal); F17.210 Nicotine dependence, cigarettes, uncomplicated; F32.9 Major depressive disorder, single episode, unspecified; Z79.899 Other long term (current) drug therapy; Z88.5 Allergy status to narcotic agent; Z91.040 Latex allergy status
CPT/HCPCS: 71046; 81025; 87804; 94640; 96372; 99284; J2930

== ENCOUNTER 2017-10-23 14:46 | Emergency (ER) | payer MEDICAID ==
[2017-10-23 15:16] VITALS: BP 135/76
--- NOTE | 2017-10-23 16:29 | EDM.PDOC ---
ED HPI GENERAL MEDICAL PROBLEM - General Chief Complaint: General Stated Complaint: FLU-LIKE SYMPTOMS Time Seen by Provider: 10/23/17 14:48 Source of Information: Reports: Patient History Limitations: Reports: No Limitations - History of Present Illness INITIAL COMMENTS - FREE TEXT/NARRATIVE: HISTORY AND PHYSICAL: History of present illness: Patient is a 22-year-old female who presents to the emergency room today with complaints of sore throat, fever, cough and body aches 3 days. 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 Has a history of COPD and uses home oxygen at nighttime. States she has been having to use it during the day as she has had some dyspnea related to her cough. Denies any chest pain, shortness of breath, abdominal pain, nausea, vomiting or diarrhea. Review of systems: As per history of present illness and below otherwise all systems reviewed and negative. Past medical history: As per history of present illness and as reviewed below otherwise noncontributory. Surgical history: As per history of present illness and as reviewed below otherwise noncontributory. Social history: No reported history of drug or alcohol abuse. Family history: As per history of present illness and as reviewed below otherwise noncontributory. Physical exam: General: Developed and well-nourished 22-year-old female. Alert and oriented. Nontoxic appearing and in no acute distress. HEENT: Atraumatic, normocephalic, pupils reactive, negative for conjunctival pallor or scleral icterus, mucous membranes moist, throat clear, neck supple, nontender, trachea midline. Lungs: Expiratory wheezing noted to the right posterior base, diminished throughout, breath sounds equal bilaterally, chest nontender. She is currently wearing her home oxygen at 2 L per nasal cannula Heart: S1S2, regular, negative for clicks, rubs, or JVD. Abdomen: Soft, nondistended, nontender. Negative for masses or hepatosplenomegaly. Negative for costovertebral tenderness. Pelvis: Stable nontender. Genitourinary: Deferred. Rectal: Deferred. Extremities: Atraumatic, negative for cords or calf pain. Neurovascular unremarkable. Neuro: Awake, alert, oriented. Cranial nerves II through XII unremarkable. Cerebellum unremarkable. Motor and sensory unremarkable throughout. Exam nonfocal. Patient is currently wearing her home oxygen for comfort. Upon arrival she is afebrile and satting 98%. Negative influenza and strep screening. Chest x-ray shows no infiltrate or pneumonia. Due to the patient's history of COPD and oxygen use a will treat her with a Z-Stan and Medrol Dosepak. She is already taking routine and when necessary inhalers. Did talk with her about close follow-up with her primary care provider. She voices understanding and is agreeable to plan of care. She denies any questions at this time. Diagnostics: Influenza, strep, 2 view chest x-ray Therapeutics: [] Impression: 1. Viral illness 2. Bronchitis Plan: 1. Influenza/Strep is negative. CXR shows no pneumonia at this time. But, due to your history of respiratory illnesses will treat you with azithromycin and Medrol Dosepak. Please continue to take your home medications as directed. You may use your oxygen for comfort. Get plenty of rest. Encourage fluids to prevent dehydration. Use Tylenol and or ibuprofen for pain and fever management. 2. Follow up with her primary care provider next week. Return to the ED as needed and as discussed. Definitive disposition and diagnosis as appropriate pending reevaluation and review of above. Duration: Day(s): Location: Reports: Chest - Related Data Allergies Allergy/AdvReac Type Severity Reaction Status Date / Time codeine Allergy Anaphylactic Verified 09/22/17 21:52 Shock latex Allergy Rash Verified 09/22/17 21:52 meperidine HCl [From Demerol] Allergy Anaphylactic Verified 09/22/17 21:52 Shock morphine Allergy Anaphylactic Verified 09/22/17 21:52 Shock Home Meds: Home Meds Albuterol [Ventolin HFA] 2 puff INH Q2HR PRN 06/02/14 [History] ALPRAZolam [Xanax] 0.25 mg PO BEDTIME tablet 09/16/15 [Rx] Albuterol/Ipratropium [DuoNeb 3.0-0.5 MG/3 ML] 3 ml NEB Q6HRRT 01/04/16 [History ] Fluticasone/Salmeterol [Advair 250-50 Diskus] 1 each IH DAILY 07/26/17 [History] Past Medical History - Past Health History Medical/Surgical History: Denies Medical/Surgical History HEENT History: Reports: Allergic Rhinitis Other HEENT History: dental abcess, broken teeth, astigmatism Cardiovascular History: Reports: None Respiratory History: Reports: Asthma, Bronchitis, Recurrent, COPD, Pneumonia, Recurrent, Other (See Below) Other Respiratory History: mold in lungs. intubated 09/19/15 and flown to [place]. states being tested for AAT deficiency. Gastrointestinal History: Reports: Chronic Constipation, GERD, Other (See Below) Other Gastrointestinal History: constipation a chronic issue since intestinal growth removed Genitourinary History: Reports: UTI, Recurrent PLANT PATHOLOGIST History: Reports: None Musculoskeletal History: Reports: Fracture, Other (See Below) Other Musculoskeletal History: Bulging disc Neurological History: Reports: Other (See Below) Other Neuro History: tourette syndrome Psychiatric History: Reports: Anxiety, Depression, PTSD, Other (See Below) Other Psychiatric History: Paranoia Endocrine/Metabolic History: Reports: None Hematologic History: Reports: Anemia Immunologic History: Reports: None Oncologic (Cancer) History: Reports: None Dermatologic History: Reports: None - Infectious Disease History Infectious Disease History: Reports: Influenza - Past Surgical History Head Surgeries/Procedures: Reports: None GI Surgical History: Reports: Appendectomy, Other (See Below) Social & Family History - Family History Family Medical History: Noncontributory HEENT: Reports: Impaired Vision Cardiac: Reports: Heart Failure Respiratory: Reports: Asthma GI: Reports: None : Reports: Renal Disease/Insufficiency OBGYN: Reports: None Musculoskeletal: Reports: Arthritis Neurological: Reports: Dementia Psychiatric: Reports: Anxiety, Depression Endocrine/Metabolic: Reports: Diabetes, type II Hematologic: Reports: Anemia Dermatologic: Reports: Other (See Below) Other Dermatologic Family History: skin allergy, eczema Oncologic: Reports: Colon, Leukemia - Tobacco Use Smoking Status *Q: Current Every Day Smoker Years of Tobacco use: 10 Packs/Tins Daily: 0.5 Used Tobacco, but Quit: Yes Month Tobacco Last Used: june 2015 Second Hand Smoke Exposure: Yes - Caffeine Use Caffeine Use: Reports: Coffee, Energy Drinks, Soda Other Caffeine Use: 1-2 energy drink per day Caffeine Use Comment: 2cups coffe/day; 2 drinks/day - Alcohol Use Days Per Week of Alcohol Use: 1 Number of Drinks Per Day: 1 Total Drinks Per Week: 1 - Recreational Drug Use Recreational Drug Use: No Drug Use in Last 12 Months: No Recreational Drug Type: Reports: Marijuana/Hashish ED ROS ENT - Review of Systems Review Of Systems: ROS reveals no pertinent complaints other than HPI. ED EXAM, ENT - Physical Exam Exam: See Below (See dictation) Course - Vital Signs Last Recorded V/S: Last Vital Signs Temp 98.4 F 10/23/17 15:11 Pulse 68 10/23/17 15:11 Resp 20 10/23/17 15:11 BP 135/76 10/23/17 15:11 Pulse Ox 98 10/23/17 15:11 - Orders/Labs/Meds Orders: Active Orders 24 hr Category Date Time Status Chest 2V [CR] Stat Exams 10/23/17 16:20 Taken CULTURE STREP A CONFIRMATION [RM] Stat Lab 10/23/17 16:43 Results STREP SCRN A RAPID W CULT CONF [RM] Stat Lab 10/23/17 16:43 Results Departure - Departure Time of Disposition: 17:27 Disposition: Home, Self-Care 01 Clinical Impression: Bronchitis, Viral illness - Discharge Information Referrals: Akshat Xiong MD [Primary Care Provider] - Forms: ED Department Discharge, ED Department Discharge Additional Instructions: My general discharge The following information is given to patients seen in the emergency department who are being discharged to home. This information is to outline your options for follow-up care. We provide all patients seen in our emergency department with a follow-up referral. The need for follow-up, as well as the timing and circumstances, are variable depending upon the specifics of your emergency department visit. If you don't have a primary care physician on staff, we will provide you with a referral. We always advise you to contact your personal physician following an emergency department visit to inform them of the circumstance of the visit and for follow-up with them and/or the need for any referrals to a consulting specialist. The emergency department will also refer you to a specialist when appropriate. This referral assures that you have the opportunity for follow-up care with a specialist. All of these measure are taken in an effort to provide you with optimal care, which includes your follow-up. Under all circumstances we always encourage you to contact your private physician who remains a resource for coordinating your care. When calling for follow-up care, please make the office aware that this follow-up is from your recent emergency room visit. If for any reason you are refused follow-up, please contact the [facility] Emergency Department at and asked to speak to the emergency department charge nurse. [facility] [address] [place] [id number] 1. Influenza/Strep is negative. CXR shows no pneumonia at this time. But, due to your history of respiratory illnesses will treat you with azithromycin and Medrol Dosepak. Please continue to take your home medications as directed. You may use your oxygen for comfort. Get plenty of rest. Encourage fluids to prevent dehydration. Use Tylenol and or ibuprofen for pain and fever management. 2. Follow up with her primary care provider next week. Return to the ED as needed and as discussed. - My Orders Last 24 Hours: My Active Orders 10/23/17 16:20 Chest 2V [CR] Stat 10/23/17 16:43 CULTURE STREP A CONFIRMATION [RM] Stat STREP SCRN A RAPID W CULT CONF [RM] Stat - Assessment/Plan Last 24 Hours: My Active Orders 10/23/17 16:20 Chest 2V [CR] Stat 10/23/17 16:43 CULTURE STREP A CONFIRMATION [RM] Stat STREP SCRN A RAPID W CULT CONF [RM] Stat
--- NOTE | 2017-10-25 14:52 | CR ---
EXAM DATE: 10/23/17 PATIENT'S AGE: 22 Patient: [facility] Facility: [place], [place] Site . Site : 1995 Study: XRay Chest [id number] 5:11:12 PM Ordering Physician: Doctor Harmon Final Report: INDICATION: Pain. Shortness of breath. TECHNIQUE: PA and lateral chest x-ray. FINDINGS: Ill-defined artifact in the central chest and upper abdomen on the frontal view. Heart size normal. Linear atelectasis or scarring which is mild in the left mid lung. Lungs otherwise clear without infiltrate or consolidation. Chest otherwise negative without acute disease. Dictated by Espinoza Arana MD @ Oct 23 2017 5:12PM (Electronic Signature) Report Signed by Proxy. KATY
== END 2017-10-23 17:35 | disposition home or self-care (01) ==
LOC: MW.ED 14:46
DX: J40 Bronchitis, not specified as acute or chronic (principal); B34.9 Viral infection, unspecified; F17.210 Nicotine dependence, cigarettes, uncomplicated; Z88.5 Allergy status to narcotic agent; Z91.040 Latex allergy status; Z79.899 Other long term (current) drug therapy
CPT/HCPCS: 71046; 71046-26; 87081; 87804; 87880; 99283

== ENCOUNTER 2017-12-27 18:46 | Emergency (ER) | payer MEDICAID ==
--- NOTE | 2017-12-27 19:17 | EDM.PDOC ---
ED HPI GENERAL MEDICAL PROBLEM - General Chief Complaint: Lower Extremity Injury/Pain Stated Complaint: PAIN RT HEEL Time Seen by Provider: 12/27/17 19:06 Source of Information: Reports: Patient History Limitations: Reports: No Limitations - History of Present Illness INITIAL COMMENTS - FREE TEXT/NARRATIVE: HISTORY AND PHYSICAL: History of present illness: Patient is a 22-year-old female who presents to the emergency room today with complaints of right heel pain. States that while she was exiting through a door and hit her in the posterior right foot causing right heel pain. She does have a superficial abrasion to the back of the right heel. Reports increased pain with weightbearing and ambulation. Denie any numbness or tingling to the affected extremity. Review of systems: As per history of present illness and below otherwise all systems reviewed and negative. Past medical history: As per history of present illness and as reviewed below otherwise noncontributory. Surgical history: As per history of present illness and as reviewed below otherwise noncontributory. Social history: No reported history of drug or alcohol abuse. Family history: As per history of present illness and as reviewed below otherwise noncontributory. Physical exam: General: Well-developed and well-nourished 22-year-old female. Alert and oriented. Nontoxic appearing and in no acute distress. HEENT: Atraumatic, normocephalic, pupils equal and reactive bilaterally, negative for conjunctival pallor or scleral icterus, mucous membranes moist, throat clear, neck supple, nontender, trachea midline. No drooling or trismus noted. No meningeal signs Lungs: Clear to auscultation, breath sounds equal bilaterally, chest nontender. Heart: S1S2, regular rate and rhythm without overt murmur Abdomen: Soft, nondistended, nontender. Negative for masses or hepatosplenomegaly. Negative for costovertebral tenderness. Pelvis: Stable nontender. Genitourinary: Deferred. Rectal: Deferred. Skin: Superficial abrasion noted to the right posterior heel warm, otherwise intact, warm and dry. No lesions or rashes noted. Extremities: Moves all extremities per self with good flexion and extension of the affected foot. Strong pedal pulses. No medial or lateral malleolus tenderness with palpation. Appears to have no Achilles involvement. Pain with palpation of the right calcaneous. She is negative for cords or calf pain. Neurovascular unremarkable. Neuro: Awake, alert, oriented. Cranial nerves II through XII unremarkable. Cerebellum unremarkable. Motor and sensory unremarkable throughout. Exam nonfocal. Notes: X-ray shows no evidence of acute injury. We did discuss the need for close follow-up with podiatry or the orthopedic provider as there could be hidden fracture, some tendon or ligament involvement if she continues to have pain. He is requesting something for pain management other than Tylenol and ibuprofen. We will give tramadol, 10 tablets, no refill. Placed in eagle wrap and crutches. She voices understanding and is agreeable to plan of care. She denies any further questions at this time. Diagnostics: Calcaneous Xray Therapeutics: Toradol IM, eagle wrap, crutches Impression: Right heel injury Plan: 1. Please use the Eagle wrap and crutches for the next 24-48 hours. You may use as needed for after that for comfort. 2. Tylenol and/or ibuprofen as needed for pain management. You may use the tramadol for moderate to severe pain. Do not take while driving or needing to be functioning outside of the house as this may cause drowsiness. 3. Follow-up with the orthopedic or dealmaker in the next 2-3 days. Return to the ED as needed and as discussed. Definitive disposition and diagnosis as appropriate pending reevaluation and review of above. Onset: Today Duration: Hour(s): Location: Reports: Lower Extremity, Right Right heel Pain Score (Numeric/FACES): 5 - Related Data Allergies Allergy/AdvReac Type Severity Reaction Status Date / Time codeine Allergy Anaphylactic Verified 12/27/17 19:10 Shock latex Allergy Rash Verified 12/27/17 19:10 meperidine HCl [From Demerol] Allergy Anaphylactic Verified 12/27/17 19:10 Shock morphine Allergy Anaphylactic Verified 12/27/17 19:10 Shock Home Meds: Home Meds Albuterol [Ventolin HFA] 2 puff INH Q2HR PRN 06/02/14 [History] ALPRAZolam [Xanax] 0.25 mg PO BEDTIME tablet 09/16/15 [Rx] Albuterol/Ipratropium [DuoNeb 3.0-0.5 MG/3 ML] 3 ml NEB Q6HRRT 01/04/16 [History ] Fluticasone/Salmeterol [Advair 250-50 Diskus] 1 each IH DAILY 07/26/17 [History] Past Medical History - Past Health History Medical/Surgical History: Denies Medical/Surgical History HEENT History: Reports: Allergic Rhinitis Other HEENT History: dental abcess, broken teeth, astigmatism Cardiovascular History: Reports: None Respiratory History: Reports: Asthma, Bronchitis, Recurrent, COPD, Pneumonia, Recurrent, Other (See Below) Other Respiratory History: mold in lungs. intubated 09/19/15 and flown to [place]. states being tested for AAT deficiency. Gastrointestinal History: Reports: Chronic Constipation, GERD, Other (See Below) Other Gastrointestinal History: constipation a chronic issue since intestinal growth removed Genitourinary History: Reports: UTI, Recurrent MEDICAL SERVICES MANAGER History: Reports: None Musculoskeletal History: Reports: Fracture, Other (See Below) Other Musculoskeletal History: Bulging disc Neurological History: Reports: Other (See Below) Other Neuro History: tourette syndrome Psychiatric History: Reports: Anxiety, Depression, PTSD, Other (See Below) Other Psychiatric History: Paranoia Endocrine/Metabolic History: Reports: None Hematologic History: Reports: Anemia Immunologic History: Reports: None Oncologic (Cancer) History: Reports: None Dermatologic History: Reports: None - Infectious Disease History Infectious Disease History: Reports: Influenza - Past Surgical History Head Surgeries/Procedures: Reports: None GI Surgical History: Reports: Appendectomy, Other (See Below) Social & Family History - Family History Family Medical History: Noncontributory HEENT: Reports: Impaired Vision Cardiac: Reports: Heart Failure Respiratory: Reports: Asthma GI: Reports: None : Reports: Renal Disease/Insufficiency OBGYN: Reports: None Musculoskeletal: Reports: Arthritis Neurological: Reports: Dementia Psychiatric: Reports: Anxiety, Depression Endocrine/Metabolic: Reports: Diabetes, type II Hematologic: Reports: Anemia Dermatologic: Reports: Other (See Below) Other Dermatologic Family History: skin allergy, eczema Oncologic: Reports: Colon, Leukemia - Tobacco Use Smoking Status *Q: Current Every Day Smoker Years of Tobacco use: 10 Packs/Tins Daily: 0.5 Used Tobacco, but Quit: Yes Month/Year Tobacco Last Used: june 2015 Second Hand Smoke Exposure: Yes - Caffeine Use Caffeine Use: Reports: Coffee, Energy Drinks, Soda Other Caffeine Use: 1-2 energy drink per day Caffeine Use Comment: 2cups coffe/day; 2 drinks/day - Alcohol Use Days Per Week of Alcohol Use: 1 Number of Drinks Per Day: 1 Total Drinks Per Week: 1 - Recreational Drug Use Recreational Drug Use: No Drug Use in Last 12 Months: No Recreational Drug Type: Reports: Marijuana/Hashish Review of Systems - Review of Systems Review Of Systems: ROS reveals no pertinent complaints other than HPI. ED EXAM, GENERAL - Physical Exam Exam: See Below (See dictation) Course - Vital Signs Last Recorded V/S: Last Vital Signs Temp 97.7 F 12/27/17 19:00 Pulse 95 12/27/17 19:00 Resp 18 12/27/17 19:00 BP 179/114 H 12/27/17 19:00 Pulse Ox 97 12/27/17 19:00 - Orders/Labs/Meds Orders: Active Orders 24 hr Category Date Time Status Calcaneous Rt [CR] Stat Exams 12/27/17 19:17 Taken DME for Discharge [COMM] Stat Oth 12/27/17 20:15 Ordered Meds: Medications Discontinued Medications Generic Name Dose Route Start Last Admin Trade Name Brian PRN Reason Stop Dose Admin Ketorolac Tromethamine 60 mg 12/27/17 19:39 Toradol IM 12/27/17 19:40 ONETIME ONE Departure - Departure Time of Disposition: 20:14 Disposition: Home, Self-Care 01 Clinical Impression: Injury of right heel Qualifiers: Encounter type: initial encounter Qualified Code(s): S99.921A - Unspecified injury of right foot, initial encounter - Discharge Information Instructions: Foot Sprain Referrals: Akshat Xiong MD [Primary Care Provider] - Forms: ED Department Discharge Additional Instructions: The following information is given to patients seen in the emergency department who are being discharged to home. This information is to outline your options for follow-up care. We provide all patients seen in our emergency department with a follow-up referral. The need for follow-up, as well as the timing and circumstances, are variable depending upon the specifics of your emergency department visit. If you don't have a primary care physician on staff, we will provide you with a referral. We always advise you to contact your personal physician following an emergency department visit to inform them of the circumstance of the visit and for follow-up with them and/or the need for any referrals to a consulting specialist. The emergency department will also refer you to a specialist when appropriate. This referral assures that you have the opportunity for follow-up care with a specialist. All of these measure are taken in an effort to provide you with optimal care, which includes your follow-up. Under all circumstances we always encourage you to contact your private physician who remains a resource for coordinating your care. When calling for follow-up care, please make the office aware that this follow-up is from your recent emergency room visit. If for any reason you are refused follow-up, please contact the [facility] Emergency Department at and asked to speak to the emergency department charge nurse. [facility] [address] [place] [id number] [address] 1. Please use the Eagle wrap and crutches for the next 24-48 hours. You may use as needed for after that for comfort. 2. Tylenol and/or ibuprofen as needed for pain management. You may use the tramadol for moderate to severe pain. Do not take while driving or needing to be functioning outside of the house as this may cause drowsiness. 3. Follow-up with the orthopedic or dealmaker in the next 2-3 days. Return to the ED as needed and as discussed. - My Orders Last 24 Hours: My Active Orders 12/27/17 19:17 Calcaneous Rt [CR] Stat 12/27/17 20:15 DME for Discharge [COMM] Stat - Assessment/Plan Last 24 Hours: My Active Orders 12/27/17 19:17 Calcaneous Rt [CR] Stat 12/27/17 20:15 DME for Discharge [COMM] Stat
[2017-12-27] MEDS ORDERED: Ketorolac 60 MG/2 ML SDV IM ONE (19:39)
[2017-12-27 20:25] VITALS: BP 160/78
--- NOTE | 2017-12-28 10:15 | CR ---
EXAM DATE: 12/27/17 PATIENT'S AGE: 22 Patient: [facility] Facility: [place], [place] Site . Site : 1995 Study: XRay Extremity Right calcaneus [id number] 7:54:45 PM Ordering Physician: Doctor Harmon Final Report: Indication: Injury and pain Technique: Right calcaneus two views Comparison: None Findings: Bones: Alignment is normal. No fractures or bone lesions. Joint spaces: Unremarkable. Soft tissues: Unremarkable. Impression: No sign of acute injury. Dictated by Jack Salas MD @ Dec 27 2017 8:00PM (Electronic Signature) Report Signed by Proxy. KATY
== END 2017-12-27 20:35 | disposition home or self-care (01) ==
LOC: MW.ED 18:46
DX: S99.921A Unspecified injury of right foot, initial encounter (principal); J44.9 Chronic obstructive pulmonary disease, unspecified; Z88.5 Allergy status to narcotic agent; Z91.040 Latex allergy status; Z79.899 Other long term (current) drug therapy; F17.210 Nicotine dependence, cigarettes, uncomplicated; W22.8XXA Striking against or struck by other objects, initial encounter
CPT/HCPCS: 73650; 96372; 99283; J1885

== ENCOUNTER 2018-01-06 21:45 | Emergency (ER) | payer MEDICAID ==
--- NOTE | 2018-01-06 22:03 | EDM.PDOC ---
ED HPI GENERAL MEDICAL PROBLEM - General Chief Complaint: Skin Complaint Stated Complaint: PAIN/LUMPS RT BREAST Time Seen by Provider: 01/06/18 21:59 - History of Present Illness INITIAL COMMENTS - FREE TEXT/NARRATIVE: HISTORY AND PHYSICAL: History of present illness: Patient's 22-year-old female presents with concern for right breast pain there' s been no erythema nausea vomiting fever chills, or other concern. Review of systems: As per history of present illness and below otherwise all systems reviewed and negative. Past medical history: As per history of present illness and as reviewed below otherwise noncontributory. Surgical history: As per history of present illness and as reviewed below otherwise noncontributory. Social history: No reported history of drug or alcohol abuse. Family history: As per history of present illness and as reviewed below otherwise noncontributory. Physical exam: HEENT: Atraumatic, normocephalic, pupils reactive, negative for conjunctival pallor or scleral icterus, mucous membranes moist, throat clear, neck supple, nontender, trachea midline. Lungs: Clear to auscultation, breath sounds equal bilaterally, chest nontender. Heart: S1S2, regular, negative for clicks, rubs, or JVD. Abdomen: Soft, nondistended, nontender. Negative for masses or hepatosplenomegaly. Negative for costovertebral tenderness. Pelvis: Stable nontender. Genitourinary: Deferred. Rectal: Deferred. Extremities: Atraumatic, negative for cords or calf pain. Neurovascular unremarkable. Neuro: Awake, alert, oriented. Cranial nerves II through XII unremarkable. Cerebellum unremarkable. Motor and sensory unremarkable throughout. Exam nonfocal. Breast: No erythema no warmth no masses appreciated. Diagnostics: None Therapeutics: None Impression: #1 right breast pain etiology be determined Definitive disposition and diagnosis as appropriate pending reevaluation and review of above. Right Breast Pain Score (Numeric/FACES): 6 - Related Data Allergies Allergy/AdvReac Type Severity Reaction Status Date / Time codeine Allergy Anaphylactic Verified 01/06/18 21:58 Shock latex Allergy Rash Verified 01/06/18 21:58 meperidine HCl [From Demerol] Allergy Anaphylactic Verified 01/06/18 21:58 Shock morphine Allergy Anaphylactic Verified 01/06/18 21:58 Shock Home Meds: Home Meds Albuterol [Ventolin HFA] 2 puff INH Q2HR PRN 06/02/14 [History] ALPRAZolam [Xanax] 0.25 mg PO BEDTIME tablet 09/16/15 [Rx] Albuterol/Ipratropium [DuoNeb 3.0-0.5 MG/3 ML] 3 ml NEB Q6HRRT PRN 01/04/16 [ History] Control 12/27/17 [History] Cyclobenzaprine [Flexeril] 1 tab PO DAILY PRN 12/27/17 [History] PARoxetine [Paxil] 0 tab PO DAILY 12/27/17 [History] Polyethylene Glycol 3350 [MiraLAX] 0 PO DAILY 12/27/17 [History] Past Medical History - Past Health History Medical/Surgical History: Denies Medical/Surgical History HEENT History: Reports: Allergic Rhinitis Other HEENT History: dental abcess, broken teeth, astigmatism Cardiovascular History: Reports: None Respiratory History: Reports: Asthma, Bronchitis, Recurrent, COPD, Pneumonia, Recurrent, Other (See Below) Other Respiratory History: mold in lungs. intubated 09/19/15 and flown to [place]. states being tested for AAT deficiency. 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 Musculoskeletal History: Reports: Fracture, Other (See Below) Other Musculoskeletal History: Bulging disc Neurological History: Reports: Other (See Below) Other Neuro History: tourette syndrome Psychiatric History: Reports: Anxiety, Depression, PTSD, Other (See Below) Other Psychiatric History: Paranoia Endocrine/Metabolic History: Reports: None Hematologic History: Reports: Anemia Immunologic History: Reports: None Oncologic (Cancer) History: Reports: None Dermatologic History: Reports: None - Infectious Disease History Infectious Disease History: Reports: Influenza - Past Surgical History Head Surgeries/Procedures: Reports: None GI Surgical History: Reports: Appendectomy, Other (See Below) Social & Family History - Family History Family Medical History: Noncontributory HEENT: Reports: Impaired Vision Cardiac: Reports: Heart Failure Respiratory: Reports: Asthma GI: Reports: None : Reports: Renal Disease/Insufficiency OBGYN: Reports: None Musculoskeletal: Reports: Arthritis Neurological: Reports: Dementia Psychiatric: Reports: Anxiety, Depression Endocrine/Metabolic: Reports: Diabetes, type II Hematologic: Reports: Anemia Dermatologic: Reports: Other (See Below) Other Dermatologic Family History: skin allergy, eczema Oncologic: Reports: Colon, Leukemia - Tobacco Use Smoking Status *Q: Current Every Day Smoker Years of Tobacco use: 10 Packs/Tins Daily: 0.5 Used Tobacco, but Quit: Yes Month/Year Tobacco Last Used: june 2015 Second Hand Smoke Exposure: Yes - Caffeine Use Caffeine Use: Reports: Coffee, Energy Drinks, Soda Other Caffeine Use: 1-2 energy drink per day Caffeine Use Comment: 2cups coffe/day; 2 drinks/day - Alcohol Use Days Per Week of Alcohol Use: 1 Number of Drinks Per Day: 1 Total Drinks Per Week: 1 - Recreational Drug Use Recreational Drug Use: No Drug Use in Last 12 Months: No Recreational Drug Type: Reports: Marijuana/Hashish ED ROS GENERAL - Review of Systems Review Of Systems: ROS reveals no pertinent complaints other than HPI. ED EXAM, SKIN/RASH Exam: See Below (See dictation) Course - Vital Signs Last Recorded V/S: Last Vital Signs Temp 36.4 C 01/06/18 21:55 Pulse 85 01/06/18 21:55 Resp 20 01/06/18 21:55 BP 156/102 H 01/06/18 21:55 Pulse Ox 96 01/06/18 21:55 Departure - Departure Time of Disposition: 22:02 Disposition: Home, Self-Care 01 Condition: Good Clinical Impression: Breast pain - Discharge Information Referrals: Akshat Xiong MD [Primary Care Provider] - Additional Instructions: The following information is given to patients seen in the emergency department who are being discharged to home. This information is to outline your options for follow-up care. We provide all patients seen in our emergency department with a follow-up referral. The need for follow-up, as well as the timing and circumstances, are variable depending upon the specifics of your emergency department visit. If you don't have a primary care physician on staff, we will provide you with a referral. We always advise you to contact your personal physician following an emergency department visit to inform them of the circumstance of the visit and for follow-up with them and/or the need for any referrals to a consulting specialist. The emergency department will also refer you to a specialist when appropriate. This referral assures that you have the opportunity for followup care with a specialist. All of these measure are taken in an effort to provide you with optimal care, which includes your followup. Under all circumstances we always encourage you to contact your private physician who remains a resource for coordinating your care. When calling for followup care, please make the office aware that this follow-up is from your recent emergency room visit. If for any reason you are refused follow-up, please contact the [facility] emergency department at and asked to speak to the emergency department charge nurse. [facility] Specialty Care - General Surgery Professional Building [address] [place] [address], [address] [place] [address] Follow-up: No surgery above Schedule routine appointment Motrin/Tylenol as directed return as needed as discussed
[2018-01-07 01:39] VITALS: BP 160/106
== END 2018-01-06 22:15 | disposition home or self-care (01) ==
LOC: MW.ED 21:45
DX: N64.4 Mastodynia (principal); F17.210 Nicotine dependence, cigarettes, uncomplicated; Z88.5 Allergy status to narcotic agent; Z91.040 Latex allergy status; Z79.899 Other long term (current) drug therapy
CPT/HCPCS: 99282

== ENCOUNTER 2018-01-21 21:39 | Emergency (ER) | payer MEDICAID ==
[2018-01-21] MEDS ORDERED: Sodium Chloride 0.9% 1,000 ML IV ONE (21:58)
--- NOTE | 2018-01-21 21:58 | EDM.PDOC ---
ED HPI GENERAL MEDICAL PROBLEM - General Chief Complaint: General Stated Complaint: DIZZINESS, WEAKNESS Time Seen by Provider: 01/21/18 21:58 Source of Information: Reports: Patient - History of Present Illness INITIAL COMMENTS - FREE TEXT/NARRATIVE: HISTORY AND PHYSICAL: History of present illness: [23-year-old female presents with cough and weakness She is nicotine dependent asthmatic last used her albuterol inhaler this afternoon chest is tight and she certainly has persistent cough although she does not appear week she states she feels weak no fever nausea vomiting chills sweats no chest pain shortness breath or palpitation she has complained of headache and dizziness that this is resolved ] Review of systems: As per history of present illness and below otherwise all systems reviewed and negative. Past medical history: As per history of present illness and as reviewed below otherwise noncontributory. Surgical history: As per history of present illness and as reviewed below otherwise noncontributory. Social history: No reported history of drug or alcohol abuse. Family history: As per history of present illness and as reviewed below otherwise noncontributory. Physical exam: HEENT: Atraumatic, normocephalic, pupils reactive, negative for conjunctival pallor or scleral icterus, mucous membranes moist, throat clear, neck supple, nontender, trachea midline. Lungs: Clear to auscultation, breath sounds equal bilaterally, chest nontender. Heart: S1S2, regular, negative for clicks, rubs, or JVD. Abdomen: Soft, nondistended, nontender. Negative for masses or hepatosplenomegaly. Negative for costovertebral tenderness. Pelvis: Stable nontender. Genitourinary: Deferred. Rectal: Deferred. Extremities: Atraumatic, negative for cords or calf pain. Neurovascular unremarkable. Neuro: Awake, alert, oriented. Cranial nerves II through XII unremarkable. Cerebellum unremarkable. Motor and sensory unremarkable throughout. Exam nonfocal. Diagnostics: [TBC CMP UA hCG Chest 2 views EKG ] Therapeutics: [Z-Stan Medrol Dosepak Continue HFA 4 times a day 7 days ] Impression: Acute bronchitis Chronic asthma Nicotine dependence ] Definitive disposition and diagnosis as appropriate pending reevaluation and review of above. Extremities Pain Score (Numeric/FACES): 5 - Related Data Allergies Allergy/AdvReac Type Severity Reaction Status Date / Time codeine Allergy Anaphylactic Verified 05/04/18 21:55 Shock latex Allergy Rash Verified 01/21/18 21:55 meperidine HCl [From Demerol] Allergy Anaphylactic Verified 01/21/18 21:55 Shock morphine Allergy Anaphylactic Verified 01/21/18 21:55 Shock Home Meds: Home Meds Albuterol [Ventolin HFA] 2 puff INH Q2HR PRN 06/02/14 [History] ALPRAZolam [Xanax] 0.25 mg PO BEDTIME tablet 09/16/15 [Rx] Albuterol/Ipratropium [DuoNeb 3.0-0.5 MG/3 ML] 3 ml NEB Q6HRRT PRN 01/04/16 [ History] Control 1 tab DAILY 12/27/17 [History] Cyclobenzaprine [Flexeril] 1 tab PO DAILY PRN 12/27/17 [History] PARoxetine [Paxil] 0 tab PO DAILY 12/27/17 [History] EPINEPHrine [Epipen] 1 injection SQ ASDIRECTED PRN 01/06/18 [History] Past Medical History - Past Health History Medical/Surgical History: Denies Medical/Surgical History HEENT History: Reports: Allergic Rhinitis Other HEENT History: dental abcess, broken teeth, astigmatism Cardiovascular History: Reports: None Respiratory History: Reports: Asthma, Bronchitis, Recurrent, COPD, Pneumonia, Recurrent, Other (See Below) Other Respiratory History: mold in lungs. intubated 09/19/15 and flown to [place]. states being tested for AAT deficiency. 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 WINDER History: Reports: None Musculoskeletal History: Reports: Fracture, Other (See Below) Other Musculoskeletal History: Bulging disc Neurological History: Reports: Other (See Below) Other Neuro History: tourette syndrome Psychiatric History: Reports: Anxiety, Depression, PTSD, Other (See Below) Other Psychiatric History: Paranoia Endocrine/Metabolic History: Reports: None Hematologic History: Reports: Anemia Immunologic History: Reports: None Oncologic (Cancer) History: Reports: None Dermatologic History: Reports: None - Infectious Disease History Infectious Disease History: Reports: Influenza - Past Surgical History Head Surgeries/Procedures: Reports: None GI Surgical History: Reports: Appendectomy, Other (See Below) Social & Family History - Family History Family Medical History: Noncontributory HEENT: Reports: Impaired Vision Cardiac: Reports: Heart Failure Respiratory: Reports: Asthma GI: Reports: None : Reports: Renal Disease/Insufficiency OBGYN: Reports: None Musculoskeletal: Reports: Arthritis Neurological: Reports: Dementia Psychiatric: Reports: Anxiety, Depression Endocrine/Metabolic: Reports: Diabetes, type II Hematologic: Reports: Anemia Dermatologic: Reports: Other (See Below) Other Dermatologic Family History: skin allergy, eczema Oncologic: Reports: Colon, Leukemia - Tobacco Use Smoking Status *Q: Current Every Day Smoker Years of Tobacco use: 10 Packs/Tins Daily: 0.5 Used Tobacco, but Quit: Yes Month/Year Tobacco Last Used: june 2015 Second Hand Smoke Exposure: Yes - Caffeine Use Caffeine Use: Reports: Coffee, Energy Drinks, Soda Other Caffeine Use: 1-2 energy drink per day Caffeine Use Comment: 2cups coffe/day; 2 drinks/day - Alcohol Use Days Per Week of Alcohol Use: 1 Number of Drinks Per Day: 1 Total Drinks Per Week: 1 - Recreational Drug Use Recreational Drug Use: No Drug Use in Last 12 Months: No Recreational Drug Type: Reports: Marijuana/Hashish ED ROS GENERAL - Review of Systems Review Of Systems: ROS reveals no pertinent complaints other than HPI. ED EXAM, GENERAL - Physical Exam Exam: See Below Course - Vital Signs Last Recorded V/S: Last Vital Signs Temp 97.9 F 01/21/18 23:02 Pulse 86 01/21/18 23:02 Resp 18 01/21/18 23:02 BP 134/79 01/21/18 23:02 Pulse Ox 97 01/21/18 23:02 - Orders/Labs/Meds Orders: Active Orders 24 hr Category Date Time Status RT Aerosol Therapy [RC] ASDIRECTED Care 01/21/18 23:47 Active Chest 2V [CR] Stat Exams 01/21/18 22:18 Taken HCG QUALITATIVE,URINE [URCHEM] Stat Lab 01/21/18 23:27 Ordered UA W/MICROSCOPIC [URIN] Stat Lab 01/21/18 23:27 Ordered Labs: Laboratory Tests 01/21/18 01/21/18 01/21/18 Range/Units 21:47 21:47 23:27 WBC 12.18 H (4.0-11.0) K/uL RBC 4.24 L (4.30-5.90) M/uL Hgb 13.1 (12.0-16.0) g/dL Hct 38.5 (36.0-46.0) % MCV 90.8 (80.0-98.0) fL MCH 30.9 (27.0-32.0) pg MCHC 34.0 (31.0-37.0) g/dL RDW Std Deviation 42.9 (28.0-62.0) fl RDW Coeff of Jhon 13 (11.0-15.0) % Plt Count 362 (150-400) K/uL MPV 9.30 (7.40-12.00) fL Neut % (Auto) 58.8 (48.0-80.0) % Lymph % (Auto) 30.1 (16.0-40.0) % Mason % (Auto) 8.3 (0.0-15.0) % Eos % (Auto) 2.6 (0.0-7.0) % Baso % (Auto) 0.2 (0.0-1.5) % Neut # (Auto) 7.2 H (1.4-5.7) K/uL Lymph # (Auto) 3.7 H (0.6-2.4) K/uL Mason # (Auto) 1.0 H (0.0-0.8) K/uL Eos # (Auto) 0.3 (0.0-0.7) K/uL Baso # (Auto) 0.0 (0.0-0.1) K/uL Nucleated RBC % 0.0 /100WBC Nucleated RBCs # 0 K/uL Sodium 141 (136-145) mmol/L Potassium 3.4 L (3.5-5.1) mmol/L Chloride 107 (98-107) mmol/L Carbon Dioxide 21.7 (21.0-32.0) mmol/L BUN 10 (7.0-18.0) mg/dL Creatinine 0.9 (0.6-1.0) mg/dL Est Cr Clr Drug Dosing 70.43 mL/min Estimated GFR (MDRD) > 60.0 ml/min Glucose 98 (74-106) mg/dL Calcium 9.2 (8.5-10.1) mg/dL Total Bilirubin 0.1 L (0.2-1.0) mg/dL AST 13 L (15-37) IU/L ALT 21 (14-63) IU/L Alkaline Phosphatase 56 (46-116) U/L Total Protein 7.4 (6.4-8.2) g/dL Albumin 3.7 (3.4-5.0) g/dL Globulin 3.7 H (2.0-3.5) g/dL Albumin/Globulin Ratio 1.0 L (1.3-2.8) Urine Color YELLOW Urine Appearance HAZY Urine pH 7.0 (5.0-8.0) Ur Specific Sterling 1.020 (1.001-1.035) Urine Protein NEGATIVE (NEGATIVE) mg/dL Urine Glucose (UA) NEGATIVE (NEGATIVE) mg/dL Urine Ketones NEGATIVE (NEGATIVE) mg/dL Urine Occult Blood NEGATIVE (NEGATIVE) Urine Nitrite NEGATIVE (NEGATIVE) Urine Bilirubin NEGATIVE (NEGATIVE) Urine Urobilinogen 0.2 (<2.0) EU/dL Ur Leukocyte Esterase NEGATIVE (NEGATIVE) Urine RBC 0-2 (0-2/HPF) Urine WBC 1-3 (0-5/HPF) Ur Epithelial Cells MODERATE (NONE-FEW) Amorphous Sediment LIGHT (NEGATIVE) Urine Bacteria FEW (NEGATIVE) Urine HCG, Qual (NEGATIVE) 01/21/18 Range/Units 23:27 WBC (4.0-11.0) K/uL RBC (4.30-5.90) M/uL Hgb (12.0-16.0) g/dL Hct (36.0-46.0) % MCV (80.0-98.0) fL MCH (27.0-32.0) pg MCHC (31.0-37.0) g/dL RDW Std Deviation (28.0-62.0) fl RDW Coeff of Jhon (11.0-15.0) % Plt Count (150-400) K/uL MPV (7.40-12.00) fL Neut % (Auto) (48.0-80.0) % Lymph % (Auto) (16.0-40.0) % Mason % (Auto) (0.0-15.0) % Eos % (Auto) (0.0-7.0) % Baso % (Auto) (0.0-1.5) % Neut # (Auto) (1.4-5.7) K/uL Lymph # (Auto) (0.6-2.4) K/uL Mason # (Auto) (0.0-0.8) K/uL Eos # (Auto) (0.0-0.7) K/uL Baso # (Auto) (0.0-0.1) K/uL Nucleated RBC % /100WBC Nucleated RBCs # K/uL Sodium (136-145) mmol/L Potassium (3.5-5.1) mmol/L Chloride (98-107) mmol/L Carbon Dioxide (21.0-32.0) mmol/L BUN (7.0-18.0) mg/dL Creatinine (0.6-1.0) mg/dL Est Cr Clr Drug Dosing mL/min Estimated GFR (MDRD) ml/min Glucose (74-106) mg/dL Calcium (8.5-10.1) mg/dL Total Bilirubin (0.2-1.0) mg/dL AST (15-37) IU/L ALT (14-63) IU/L Alkaline Phosphatase (46-116) U/L Total Protein (6.4-8.2) g/dL Albumin (3.4-5.0) g/dL Globulin (2.0-3.5) g/dL Albumin/Globulin Ratio (1.3-2.8) Urine Color Urine Appearance Urine pH (5.0-8.0) Ur Specific Sterling (1.001-1.035) Urine Protein (NEGATIVE) mg/dL Urine Glucose (UA) (NEGATIVE) mg/dL Urine Ketones (NEGATIVE) mg/dL Urine Occult Blood (NEGATIVE) Urine Nitrite (NEGATIVE) Urine Bilirubin (NEGATIVE) Urine Urobilinogen (<2.0) EU/dL Ur Leukocyte Esterase (NEGATIVE) Urine RBC (0-2/HPF) Urine WBC (0-5/HPF) Ur Epithelial Cells (NONE-FEW) Amorphous Sediment (NEGATIVE) Urine Bacteria (NEGATIVE) Urine HCG, Qual NEGATIVE (NEGATIVE) Meds: Medications Discontinued Medications Generic Name Dose Route Start Last Admin Trade Name Freq PRN Reason Stop Dose Admin Albuterol/Ipratropium 3 ml 01/21/18 23:46 Duoneb 3.0-0.5 Mg/3 Ml NEB 05/04/18 23:47 ONETIME ONE Sodium Chloride 1,000 mls @ 999 mls/hr 01/21/18 21:58 01/21/18 22:59 Normal Saline IV 01/21/18 22:58 999 mls/hr STAT ONE Administration Methylprednisolone Sodium Succinate 125 mg 01/21/18 23:46 Solu-Medrol IVPUSH 01/21/18 23:47 ONETIME ONE Departure - Departure Time of Disposition: 00:13 Disposition: Home, Self-Care 01 Condition: Good Clinical Impression: Acute bronchitis - Discharge Information Referrals: Akshat Xiong MD [Primary Care Provider] - Forms: ED Department Discharge Additional Instructions: The following information is given to patients seen in the emergency department who are being discharged to home. This information is to outline your options for follow-up care. We provide all patients seen in our emergency department with a follow-up referral. The need for follow-up, as well as the timing and circumstances, are variable depending upon the specifics of your emergency department visit. If you don't have a primary care physician on staff, we will provide you with a referral. We always advise you to contact your personal physician following an emergency department visit to inform them of the circumstance of the visit and for follow-up with them and/or the need for any referrals to a consulting specialist. The emergency department will also refer you to a specialist when appropriate. This referral assures that you have the opportunity for follow-up care with a specialist. All of these measure are taken in an effort to provide you with optimal care, which includes your follow-up. Under all circumstances we always encourage you to contact your private physician who remains a resource for coordinating your care. When calling for follow-up care, please make the office aware that this follow-up is from your recent emergency room visit. If for any reason you are refused follow-up, please contact the [facility] emergency department at and asked to speak to the emergency department charge nurse. - My Orders Last 24 Hours: My Active Orders 01/21/18 22:18 Chest 2V [CR] Stat 01/21/18 23:27 HCG QUALITATIVE,URINE [URCHEM] Stat UA W/MICROSCOPIC [URIN] Stat 01/21/18 23:47 RT Aerosol Therapy [RC] ASDIRECTED - Assessment/Plan Last 24 Hours: My Active Orders 01/21/18 22:18 Chest 2V [CR] Stat 01/21/18 23:27 HCG QUALITATIVE,URINE [URCHEM] Stat UA W/MICROSCOPIC [URIN] Stat 01/21/18 23:47 RT Aerosol Therapy [RC] ASDIRECTED
[2018-01-21 23:11] LABS: CHLORIDE,CL 107 mmol/L (98-107); SODIUM,NA 141 mmol/L (136-145)
[2018-01-21] MEDS ORDERED: methylPREDNISolone Sodium Succinate 125 MG/2 ML SDV IVPUSH ONE (23:46)
[2018-01-21] MEDS ORDERED: Albuterol/Ipratropium 3.0-0.5 MG/3 ML Neb Soln NEB ONE (23:46)
[2018-01-22 00:42] VITALS: BP 140/86
--- NOTE | 2018-01-24 10:09 | CR ---
EXAM DATE: 01/21/18 PATIENT'S AGE: 23 Patient: [facility] Facility: [place], [place] Site . Site : 1995 Study: XRay Chest [id number]/[id number] 12:17:44 AM Ordering Physician: Gertrude Mays Final Report: INDICATION: Pain, shortness of breath TECHNIQUE: Chest radiograph 2 views COMPARISON: None FINDINGS: Mediastinum: The heart silhouette is normal in size and morphology. The mediastinum is normal in appearance. Lungs: Both lungs are unremarkable in appearance. No sign of pleural effusion seen. No pneumothorax is identified. Bones and soft tissue: Unremarkable for age. IMPRESSION: 1. No acute cardiopulmonary disease is seen. Dictated by: Luis Guerrero MD @ 01/22/2018 00:20:59 (Electronic Signature) Report Signed by Proxy. [facility] C[facility]ERYamilet
== END 2018-01-22 00:39 | disposition home or self-care (01) ==
LOC: MW.ED 21:39
DX: J20.9 Acute bronchitis, unspecified (principal); F17.210 Nicotine dependence, cigarettes, uncomplicated; Z88.5 Allergy status to narcotic agent; Z91.040 Latex allergy status; Z79.899 Other long term (current) drug therapy
CPT/HCPCS: 36415; 71046; 80053; 81001; 81025; 85025; 94640; 96361; 96374; 99285; J2930; J7040; 99283

== ENCOUNTER 2018-04-01 23:15 | Emergency (ER) | payer MEDICAID ==
[2018-04-01] MEDS ORDERED: diphenhydrAMINE 50 MG Cap PO ONE (23:29)
[2018-04-01] MEDS ORDERED: Erythromycin Base 0.5% Ophth Oint 1 GM Tube EYEBOTH ONE (23:41)
--- NOTE | 2018-04-01 23:41 | EDM.PDOC ---
ED HPI GENERAL MEDICAL PROBLEM - General Chief Complaint: Allergic Reaction Time Seen by Provider: 04/01/18 23:38 - History of Present Illness INITIAL COMMENTS - FREE TEXT/NARRATIVE: HISTORY AND PHYSICAL: History of present illness: Patient is a 23-year-old female presents with a concern of inflammation of her right lower lid she initially thought this might be related to an allergic reaction she had no tongue or lip swelling shortness of breath or other concerns Review of systems: As per history of present illness and below otherwise all systems reviewed and negative. Past medical history: As per history of present illness and as reviewed below otherwise noncontributory. Surgical history: As per history of present illness and as reviewed below otherwise noncontributory. Social history: No reported history of drug or alcohol abuse. Family history: As per history of present illness and as reviewed below otherwise noncontributory. Physical exam: HEENT: Atraumatic, normocephalic, pupils reactive, negative for conjunctival pallor or scleral icterus, mucous membranes moist, throat clear, neck supple, nontender, trachea midline. Patient has some mild inflammation of her lower lid on the right. Lungs: Clear to auscultation, breath sounds equal bilaterally, chest nontender. Heart: S1S2, regular, negative for clicks, rubs, or JVD. Abdomen: Soft, nondistended, nontender. Negative for masses or hepatosplenomegaly. Negative for costovertebral tenderness. Pelvis: Stable nontender. Genitourinary: Deferred. Rectal: Deferred. Extremities: Atraumatic, negative for cords or calf pain. Neurovascular unremarkable. Neuro: Awake, alert, oriented. Cranial nerves II through XII unremarkable. Cerebellum unremarkable. Motor and sensory unremarkable throughout. Exam nonfocal. Diagnostics: None Therapeutics: Benadryl 50 mg by mouth erythromycin ophthalmic ointment Impression: 1 blepharitis Definitive disposition and diagnosis as appropriate pending reevaluation and review of above. - Related Data Allergies Allergy/AdvReac Type Severity Reaction Status Date / Time codeine Allergy Anaphylactic Verified 01/21/18 21:55 Shock latex Allergy Rash Verified 01/21/18 21:55 Latex, Natural Rubber Allergy Rash Verified 04/01/18 23:24 meperidine HCl [From Demerol] Allergy Anaphylactic Verified 01/21/18 21:55 Shock morphine Allergy Anaphylactic Verified 01/21/18 21:55 Shock shellfish derived Allergy Rash Verified 04/01/18 23:33 Home Meds: Home Meds Albuterol [Ventolin HFA] 2 puff INH Q2HR PRN 06/02/14 [History] ALPRAZolam [Xanax] 0.25 mg PO BEDTIME tablet 09/16/15 [Rx] Albuterol/Ipratropium [DuoNeb 3.0-0.5 MG/3 ML] 3 ml NEB Q6HRRT PRN 01/04/16 [ History] Control 1 tab DAILY 12/27/17 [History] Cyclobenzaprine [Flexeril] 1 tab PO DAILY PRN 12/27/17 [History] PARoxetine [Paxil] 0 tab PO DAILY 12/27/17 [History] EPINEPHrine [Epipen] 1 injection SQ ASDIRECTED PRN 01/06/18 [History] Past Medical History - Past Health History Medical/Surgical History: Denies Medical/Surgical History HEENT History: Reports: Allergic Rhinitis Other HEENT History: dental abcess, broken teeth, astigmatism Cardiovascular History: Reports: None Respiratory History: Reports: Asthma, Bronchitis, Recurrent, Pneumonia, Recurrent, Other (See Below) Other Respiratory History: on home 02 prn Gastrointestinal History: Reports: None Other Gastrointestinal History: constipation a chronic issue since intestinal growth removed Genitourinary History: Reports: UTI, Recurrent LOAN REPRESENTATIVE History: Reports: None Musculoskeletal History: Reports: Fracture, Other (See Below) Other Musculoskeletal History: Bulging disc Neurological History: Reports: Other (See Below) Other Neuro History: tourette syndrome Psychiatric History: Reports: Anxiety, Depression, PTSD, Other (See Below) Other Psychiatric History: Paranoia Endocrine/Metabolic History: Reports: None Hematologic History: Reports: Anemia Immunologic History: Reports: None Oncologic (Cancer) History: Reports: None Dermatologic History: Reports: None - Infectious Disease History Infectious Disease History: Reports: Chicken Pox - Past Surgical History Head Surgeries/Procedures: Reports: None HEENT Surgical History: Reports: None Respiratory Surgical History: Reports: None Other GI Surgeries/Procedures: removal of growth on intestines Female Surgical History: Reports: None Musculoskeletal Surgical History: Reports: None Social & Family History - Family History Family Medical History: Noncontributory HEENT: Reports: Impaired Vision Cardiac: Reports: Heart Failure Respiratory: Reports: Asthma GI: Reports: None : Reports: Renal Disease/Insufficiency OBGYN: Reports: None Musculoskeletal: Reports: Arthritis Neurological: Reports: Dementia Psychiatric: Reports: Anxiety, Depression Endocrine/Metabolic: Reports: Diabetes, type II Hematologic: Reports: Anemia Dermatologic: Reports: Other (See Below) Other Dermatologic Family History: skin allergy, eczema Oncologic: Reports: Colon, Leukemia - Tobacco Use Smoking Status *Q: Never Smoker Second Hand Smoke Exposure: No - Caffeine Use Caffeine Use: Reports: Coffee Other Caffeine Use: 1-2 energy drink per day Caffeine Use Comment: 2cups coffe/day; 2 drinks/day - Recreational Drug Use Recreational Drug Use: No ED ROS ALLERGIC REACTION - Review of Systems Review Of Systems: ROS reveals no pertinent complaints other than HPI. ED EXAM GENERAL NO PERIP PULSE - Physical Exam Exam: See Below (See dictation) Course - Vital Signs Last Recorded V/S: Last Vital Signs Temp 35.9 C 04/01/18 23:21 Pulse 80 04/01/18 23:21 Resp 18 04/01/18 23:21 BP 148/91 H 04/01/18 23:21 Pulse Ox 97 04/01/18 23:21 - Orders/Labs/Meds Meds: Medications Discontinued Medications Generic Name Dose Route Start Last Admin Trade Name Freq PRN Reason Stop Dose Admin Diphenhydramine HCl 50 mg 04/01/18 23:29 04/01/18 23:32 Benadryl PO 04/01/18 23:30 50 mg ONETIME ONE Administration Departure - Departure Time of Disposition: 23:40 Disposition: Home, Self-Care 01 Condition: Good Clinical Impression: Blepharitis - Discharge Information Referrals: PCP,None [Primary Care Provider] - Additional Instructions: The following information is given to patients seen in the emergency department who are being discharged to home. This information is to outline your options for follow-up care. We provide all patients seen in our emergency department with a follow-up referral. The need for follow-up, as well as the timing and circumstances, are variable depending upon the specifics of your emergency department visit. If you don't have a primary care physician on staff, we will provide you with a referral. We always advise you to contact your personal physician following an emergency department visit to inform them of the circumstance of the visit and for follow-up with them and/or the need for any referrals to a consulting specialist. The emergency department will also refer you to a specialist when appropriate. This referral assures that you have the opportunity for followup care with a specialist. All of these measure are taken in an effort to provide you with optimal care, which includes your followup. Under all circumstances we always encourage you to contact your private physician who remains a resource for coordinating your care. When calling for followup care, please make the office aware that this follow-up is from your recent emergency room visit. If for any reason you are refused follow-up, please contact the [facility] emergency department at and asked to speak to the emergency department charge nurse. Erythromycin ophthalmic ointment as directed Benadryl as directed follow-up private medical doctor return as needed as discussed[]
[2018-04-02 00:21] VITALS: BP 146/80
== END 2018-04-02 | disposition home or self-care (01) ==
LOC: MW.ED 23:15
DX: H01.002 Unspecified blepharitis right lower eyelid (principal); J45.909 Unspecified asthma, uncomplicated; Z88.5 Allergy status to narcotic agent; Z91.040 Latex allergy status; Z91.013 Allergy to seafood; Z79.899 Other long term (current) drug therapy
CPT/HCPCS: 99283; A9270

== ENCOUNTER 2019-06-15 13:32 | Emergency (ER) | payer MEDICAID, MEDICARE ==
--- NOTE | 2019-06-15 13:48 | EDM.PDOC ---
ED HPI GENERAL MEDICAL PROBLEM - General Chief Complaint: Abdominal Pain Stated Complaint: LEFT LOWER ABD PAIN Time Seen by Provider: 06/15/19 13:34 Source of Information: Reports: Patient History Limitations: Reports: No Limitations - History of Present Illness INITIAL COMMENTS - FREE TEXT/NARRATIVE: HISTORY AND PHYSICAL: History of present illness: Patient is a 24-year-old female who presents to the emergency room today with complaints of umbilical abdominal pain, nausea and vomiting that started this morning. She states when she presses in her umbilicus she is able to feel "a lump" and it is painful. Patient denies any fever, chills, headache, change in vision, syncope or near syncope. Denies any chest pain, back pain, shortness of breath or cough. Denies any diarrhea, constipation or dysuria. Last BM this morning, "was normal". Has not noted any blood in urine or stool. Patient has been eating and drinking appropriately. Review of systems: As per history of present illness and below otherwise all systems reviewed and negative. Past medical history: As per history of present illness and as reviewed below otherwise noncontributory. Surgical history: As per history of present illness and as reviewed below otherwise noncontributory. Social history: See social history for further information Family history: As per history of present illness and as reviewed below otherwise noncontributory. Physical exam: General: Well developed and well nourished 24-year-old female. Alert and oriented. Nontoxic appearing and in no acute distress. HEENT: Atraumatic, normocephalic, pupils equal and reactive bilaterally, negative for conjunctival pallor or scleral icterus, mucous membranes moist, neck supple, nontender, trachea midline. No drooling or trismus noted. No meningeal signs. No hot potato voice noted. Lungs: Clear to auscultation, breath sounds equal bilaterally, chest nontender. Patient is oxygen dependent due to COPD. Heart: S1S2, regular rate and rhythm without overt murmur Abdomen: Soft, nondistended, obese, mid abdominal tenderness at the umbilicus. No protrusions or hernias are noted. Negative for masses. Negative for costovertebral tenderness. Pelvis: Stable nontender. Skin: Intact, warm, dry. No lesions or rashes noted. Extremities: Atraumatic, moves all extremities per self without difficulty or deficits, negative for cords or calf pain. Neurovascular unremarkable. Neuro: Awake, alert, oriented. Cranial nerves II through XII unremarkable. Cerebellum unremarkable. Motor and sensory unremarkable throughout. Exam nonfocal. Notes: Patient reports that she can sometimes feel a lump in her umbilicus, when trying to show me she is unable to locate the area in question. Her abdomen is soft although slightly tender. Not able to appreciate any masses or hernias. Supportive care measures were reviewed and discussed. Voices understanding and is agreeable to plan of care. Denies any further questions or concerns at this time. Diagnostics: CBC, CMP, lipase, UA, hCG , CT abdomen and pelvis Therapeutics: IV fluid, Zofran, Toradol Prescription: None Impression: Abdominal Pain Plan: 1. [place] diet, advance as tolerated. Make sure you're getting plenty of fluids to prevent dehydration. 2. Please follow-up with primary care or general surgeon for further evaluation and management. 3. Return to the ED as needed and as discussed. Definitive disposition and diagnosis as appropriate pending reevaluation and review of above. Left Abdominal Pain Score (Numeric/FACES): 5 - Related Data Allergies Allergy/AdvReac Type Severity Reaction Status Date / Time codeine Allergy Anaphylactic Verified 06/15/19 13:42 Shock latex Allergy Rash Verified 06/15/19 13:42 Latex, Natural Rubber Allergy Rash Verified 06/15/19 13:42 meperidine HCl [From Demerol] Allergy Anaphylactic Verified 06/15/19 13:42 Shock morphine Allergy Anaphylactic Verified 06/15/19 13:42 Shock shellfish derived Allergy Rash Verified 06/15/19 13:42 Home Meds: Home Meds Albuterol [Ventolin HFA] 2 puff INH Q2HR PRN 06/02/14 [History] Albuterol/Ipratropium [DuoNeb 3.0-0.5 MG/3 ML] 3 ml NEB Q6HRRT PRN 01/04/16 [ History] EPINEPHrine [Epipen] 1 injection SQ ASDIRECTED PRN 01/06/18 [History] Fluticasone/Salmeterol [Advair 250-50 Diskus] 2 puff INH DAILY 07/19/18 [History ] DULoxetine [Cymbalta] 20 mg PO DAILY 06/15/19 [History] Tiotropium [Spiriva] 18 mcg INH BID 06/15/19 [History] Past Medical History - Past Health History Medical/Surgical History: Denies Medical/Surgical History HEENT History: Reports: Allergic Rhinitis Other HEENT History: dental abcess, broken teeth, astigmatism Cardiovascular History: Reports: None Respiratory History: Reports: Asthma, Bronchitis, Recurrent, COPD, Pneumonia, Recurrent, Other (See Below) Other Respiratory History: on home 02 prn Gastrointestinal History: Reports: Chronic Constipation Other Gastrointestinal History: constipation a chronic issue since intestinal growth removed Genitourinary History: Reports: UTI, Recurrent CONTINUITY DIRECTOR History: Reports: None Musculoskeletal History: Reports: Fracture, Other (See Below) Other Musculoskeletal History: Bulging disc Neurological History: Reports: Other (See Below) Other Neuro History: tourette syndrome Psychiatric History: Reports: Anxiety, Depression, PTSD, Other (See Below) Other Psychiatric History: borderline personality disorder Endocrine/Metabolic History: Reports: None Hematologic History: Reports: Anemia Immunologic History: Reports: None Oncologic (Cancer) History: Reports: None Dermatologic History: Reports: None - Infectious Disease History Infectious Disease History: Reports: Chicken Pox - Past Surgical History Head Surgeries/Procedures: Reports: None HEENT Surgical History: Reports: None Respiratory Surgical History: Reports: None GI Surgical History: Reports: Appendectomy, Other (See Below) Other GI Surgeries/Procedures: removal of growth on intestines Female Surgical History: Reports: None Musculoskeletal Surgical History: Reports: None Social & Family History - Family History Family Medical History: Noncontributory HEENT: Reports: Impaired Vision Cardiac: Reports: Heart Failure Respiratory: Reports: Asthma GI: Reports: None : Reports: Renal Disease/Insufficiency OBGYN: Reports: None Musculoskeletal: Reports: Arthritis Neurological: Reports: Dementia Psychiatric: Reports: Anxiety, Depression Endocrine/Metabolic: Reports: Diabetes, type II Hematologic: Reports: Anemia Dermatologic: Reports: Other (See Below) Other Dermatologic Family History: skin allergy, eczema Oncologic: Reports: Colon, Leukemia - Caffeine Use Caffeine Use: Reports: Coffee, Energy Drinks, Soda, Tea Other Caffeine Use: 1-2 energy drink per day Caffeine Use Comment: 2cups coffe/day; 2 drinks/day ED ROS GENERAL - Review of Systems Review Of Systems: ROS reveals no pertinent complaints other than HPI. ED EXAM, GI/ABD - Physical Exam Exam: See Below (See dictation) Course - Vital Signs Last Recorded V/S: Last Vital Signs Temp 97.1 F 06/15/19 13:45 Pulse 74 06/15/19 13:45 Resp 18 06/15/19 13:45 BP 183/111 H 06/15/19 13:45 Pulse Ox 96 06/15/19 15:51 - Orders/Labs/Meds Orders: Active Orders 24 hr Category Date Time Status RT Aerosol Therapy [RC] ASDIRECTED Care 06/15/19 15:17 Active Sodium Chloride 0.9% [Normal Saline] 1,000 ml Med 06/15/19 13:53 Active IV STAT Medication Orders Sodium Chloride (Normal Saline) 1,000 mls @ 125 mls/hr IV STAT ONE Stop: 06/15/19 21:52 Last Admin: 06/15/19 14:12 Dose: 125 mls/hr Labs: Laboratory Tests 06/15/19 06/15/19 06/15/19 Range/Units 13:51 14:20 14:20 WBC 8.50 (4.0-11.0) K/uL RBC 4.47 (4.30-5.90) M/uL Hgb 14.0 (12.0-16.0) g/dL Hct 40.7 (36.0-46.0) % MCV 91.1 (80.0-98.0) fL MCH 31.3 (27.0-32.0) pg MCHC 34.4 (31.0-37.0) g/dL RDW Std Deviation 41.4 (28.0-62.0) fl RDW Coeff of Jhon 12 (11.0-15.0) % Plt Count 345 (150-400) K/uL MPV 9.40 (7.40-12.00) fL Neut % (Auto) 59.0 (48.0-80.0) % Lymph % (Auto) 31.5 (16.0-40.0) % [place] % (Auto) 7.1 (0.0-15.0) % Eos % (Auto) 2.0 (0.0-7.0) % Baso % (Auto) 0.4 (0.0-1.5) % Neut # (Auto) 5.0 (1.4-5.7) K/uL Lymph # (Auto) 2.7 H (0.6-2.4) K/uL [place] # (Auto) 0.6 (0.0-0.8) K/uL Eos # (Auto) 0.2 (0.0-0.7) K/uL Baso # (Auto) 0.0 (0.0-0.1) K/uL Nucleated RBC % 0.0 /100WBC Nucleated RBCs # 0 K/uL Sodium 140 (136-145) mmol/L Potassium 3.7 (3.5-5.1) mmol/L Chloride 105 (98-107) mmol/L Carbon Dioxide 20.9 L (21.0-32.0) mmol/L BUN 11 (7.0-18.0) mg/dL Creatinine 0.9 (0.6-1.0) mg/dL Est Cr Clr Drug Dosing 69.83 mL/min Estimated GFR (MDRD) > 60.0 ml/min Glucose 101 (74-106) mg/dL Calcium 9.1 (8.5-10.1) mg/dL Total Bilirubin 0.1 L (0.2-1.0) mg/dL AST 19 (15-37) IU/L ALT 30 (14-63) IU/L Alkaline Phosphatase 67 (46-116) U/L Total Protein 8.1 (6.4-8.2) g/dL Albumin 3.8 (3.4-5.0) g/dL Globulin 4.3 H (2.6-4.0) g/dL Albumin/Globulin Ratio 0.9 (0.9-1.6) Lipase 81 (73-393) U/L HCG, Quant < 1.0 mIU/mL Urine Color YELLOW Urine Appearance HAZY Urine pH 7.0 (5.0-8.0) Ur Specific [place] 1.020 (1.001-1.035) Urine Protein TRACE H (NEGATIVE) mg/dL Urine Glucose (UA) NEGATIVE (NEGATIVE) mg/dL Urine Ketones TRACE H (NEGATIVE) mg/dL Urine Occult Blood TRACE-INTACT H (NEGATIVE) Urine Nitrite NEGATIVE (NEGATIVE) Urine Bilirubin NEGATIVE (NEGATIVE) Urine Urobilinogen 0.2 (<2.0) EU/dL Ur Leukocyte Esterase NEGATIVE (NEGATIVE) Urine RBC 0-2 (0-2/HPF) Urine WBC 0-1 (0-5/HPF) Ur Epithelial Cells FEW (NONE-FEW) Urine Bacteria FEW (NEGATIVE) Urine Mucus LIGHT (NONE-MOD) Meds: Medications Generic Name Dose Route Start Last Admin Trade Name Freq PRN Reason Stop Dose Admin Sodium Chloride 1,000 mls @ 125 mls/hr 06/15/19 13:53 06/15/19 14:12 Normal Saline IV 06/15/19 21:52 125 mls/hr STAT ONE Administration Discontinued Medications Generic Name Dose Route Start Last Admin Trade Name Freq PRN Reason Stop Dose Admin Albuterol/Ipratropium 3 ml 06/15/19 15:17 06/15/19 15:46 Duoneb 3.0-0.5 Mg/3 Ml NEB 06/15/19 15:18 3 ml ONETIME ONE Administration Iopamidol 100 ml 06/15/19 15:40 Isovue Multipack-370 (76%) IVPUSH 06/15/19 15:41 ONETIME STA Ketorolac Tromethamine 30 mg 06/15/19 13:53 06/15/19 14:16 Toradol IVPUSH 06/15/19 13:54 30 mg ONETIME ONE Administration Ondansetron HCl 4 mg 06/15/19 13:53 06/15/19 14:20 Zofran IVPUSH 06/15/19 13:54 4 mg ONETIME ONE Administration Departure - Departure Time of Disposition: 16:09 Disposition: Home, Self-Care 01 Clinical Impression: Abdominal pain Qualifiers: Abdominal location: periumbilical Qualified Code(s): R10.33 - Periumbilical pain - Discharge Information Instructions: Abdominal Pain, Adult Referrals: PCP,Unknown [Primary Care Provider] - Forms: ED Department Discharge Additional Instructions: The following information is given to patients seen in the emergency department who are being discharged to home. This information is to outline your options for follow-up care. We provide all patients seen in our emergency department with a follow-up referral. The need for follow-up, as well as the timing and circumstances, are variable depending upon the specifics of your emergency department visit. If you don't have a primary care physician on staff, we will provide you with a referral. We always advise you to contact your personal physician following an emergency department visit to inform them of the circumstance of the visit and for follow-up with them and/or the need for any referrals to a consulting specialist. The emergency department will also refer you to a specialist when appropriate. This referral assures that you have the opportunity for follow-up care with a specialist. All of these measure are taken in an effort to provide you with optimal care, which includes your follow-up. Under all circumstances we always encourage you to contact your private physician who remains a resource for coordinating your care. When calling for follow-up care, please make the office aware that this follow-up is from your recent emergency room visit. If for any reason you are refused follow-up, please contact the [facility] Emergency Department at and asked to speak to the emergency department charge nurse. [facility] [address] [place] [id number] [facility] [address] [place] [id number] 1. [place] diet, advance as tolerated. Make sure you're getting plenty of fluids to prevent dehydration. 2. Please follow-up with primary care or general surgeon for further evaluation and management. 3. Return to the ED as needed and as discussed. - My Orders Last 24 Hours: My Active Orders 06/15/19 13:53 Sodium Chloride 0.9% [Normal Saline] 1,000 ml IV STAT 06/15/19 15:17 RT Aerosol Therapy [RC] ASDIRECTED - Assessment/Plan Last 24 Hours: My Active Orders 06/15/19 13:53 Sodium Chloride 0.9% [Normal Saline] 1,000 ml IV STAT 06/15/19 15:17 RT Aerosol Therapy [RC] ASDIRECTED
[2019-06-15] MEDS ORDERED: Sodium Chloride 0.9% 1,000 ML IV ONE (13:53)
[2019-06-15] MEDS ORDERED: Ondansetron 4 MG/2 ML SDV IVPUSH ONE (13:53)
[2019-06-15] MEDS ORDERED: Ketorolac 30 MG/ML SDV IVPUSH ONE (13:53)
[2019-06-15 14:58] LABS: BLOOD UREA NITROGEN,BUN 11 mg/dL (7.0-18.0); CARBON DIOXIDE,CO2 20.9 mmol/L (21.0-32.0); CHLORIDE,CL 105 mmol/L (98-107); GLUCOSE RANDOM 101 mg/dL (74-106); LIPASE 81 U/L (73-393); POTASSIUM,K 3.7 mmol/L (3.5-5.1); SODIUM,NA 140 mmol/L (136-145)
[2019-06-15] MEDS ORDERED: Albuterol/Ipratropium 3.0-0.5 MG/3 ML Neb Soln NEB ONE (15:17)
[2019-06-15] MEDS ORDERED: Iopamidol 755 MG/ML 500 ML Multipack Bottle IVPUSH STA (15:40)
--- NOTE | 2019-06-15 16:07 | CT ---
CT abdomen and pelvis Technique: Multiple axial sections were obtained from above the dome of the diaphragm inferiorly through the pubic symphysis. Intravenous contrast was utilized. No oral contrast has been given. Comparison: No prior abdominal imaging is available. Findings: Small portion of the visualized lung bases show nothing acute. Liver contains no focal abnormality. Spleen appears within normal limits. Adrenal glands show no nodule. Kidneys show symmetric contrast enhancement without hydronephrosis or mass. Pancreas is within normal limits. Gallbladder contains no calcified gallstones. Abdominal aorta shows no aneurysmal dilatation. No retroperitoneal adenopathy or mesenteric abnormalities are seen. No abdominal wall hernias are seen. No pelvic mass or adenopathy is seen. No free fluid or inflammatory change is seen. Appendix is not appreciated with certainty. No free fluid or inflammatory change is seen. Bone window settings were reviewed which shows no acute osseous abnormality. Impression: Nothing acute is appreciated on CT study of the abdomen and pelvis. Diagnostic code #1 MTDD
[2019-06-15 16:09] VITALS: BP 133/68; PULSE 60
== END 2019-06-15 16:27 | disposition home or self-care (01) ==
LOC: MW.ED 13:32
DX: R10.33 Periumbilical pain (principal); R11.2 Nausea with vomiting, unspecified; F41.9 Anxiety disorder, unspecified; F32.9 Major depressive disorder, single episode, unspecified; Z88.5 Allergy status to narcotic agent; Z91.013 Allergy to seafood; Z91.040 Latex allergy status; Z79.899 Other long term (current) drug therapy; Z87.01 Personal history of pneumonia (recurrent); Z90.49 Acquired absence of other specified parts of digestive tract
CPT/HCPCS: 36415; 74177; 80053; 81001; 83690; 84702; 85025; 96374; 96375; 99284; J1885; J2405; J7040; J7620-GY

== ENCOUNTER 2020-03-29 15:36 | Emergency (ER) | payer MEDICARE, MEDICAID ==
[2020-03-29 15:58] VITALS: BP 145/83
[2020-03-29] MEDS ORDERED: Albuterol/Ipratropium 3.0-0.5 MG/3 ML Neb Soln NEB ONE (16:06)
[2020-03-29] MEDS ORDERED: Dexamethasone 10 MG/ML SDV ONE (16:26)
[2020-03-29] MEDS ORDERED: Dexamethasone 10 MG/ML SDV PO ONE (16:31)
--- NOTE | 2020-03-29 16:41 | CR ---
Chest: Portable view of the chest was obtained. Comparison: Prior chest x-ray of 08/04/18. Heart size and mediastinum are normal. Lungs are clear with no acute parenchymal change. Scoliosis is noted within the spine. Impression: 1. Nothing acute is appreciated on portable chest x-ray. Diagnostic code #1 This report was dictated in MDT
--- NOTE | 2020-03-29 17:50 | EDM.PDOC ---
ED HPI GENERAL MEDICAL PROBLEM - General Chief Complaint: Respiratory Problem Stated Complaint: COUGHING/SOB Time Seen by Provider: 03/29/20 16:31 - History of Present Illness INITIAL COMMENTS - FREE TEXT/NARRATIVE: History of present illness: Patient presents with increased asthma symptoms for the past 2 days she has multiple allergies and is a fairly severe asthmatic. She denies any fever chills she has had a little bit of a productive cough however. No smoking she does not have any other complaints today she has all the albuterol she needs at home and other medicines for her nebulizer. Review of systems: As per history of present illness and below otherwise all systems reviewed and negative. Past medical history: As per history of present illness and as reviewed below otherwise noncontributory. Surgical history: As per history of present illness and as reviewed below otherwise noncontributory. Social history: No reported history of drug or alcohol abuse. Family history: As per history of present illness and as reviewed below otherwise noncontributory. Physical exam: HEENT: Atraumatic, normocephalic, pupils reactive, negative for conjunctival pallor or scleral icterus, mucous membranes moist, throat clear, neck supple, nontender, trachea midline. Lungs: Patient presents with some mild respiratory distress she has wheezing throughout all lung [place] no retractions. Heart: S1S2, regular, negative for clicks, rubs, or JVD. Abdomen: Soft, nondistended, nontender. Negative for masses or hepatosplenomegaly. Negative for costovertebral tenderness. Pelvis: Stable nontender. Genitourinary: Deferred. Rectal: Deferred. Extremities: Atraumatic, negative for cords or calf pain. Neurovascular unremarkable. Neuro: Awake, alert, oriented. Cranial nerves II through XII unremarkable. Cerebellum unremarkable. Motor and sensory unremarkable throughout. Exam nonfocal. Diagnostics: [] Therapeutics: [] Impression: [] Plan: [] Definitive disposition and diagnosis as appropriate pending reevaluation and review of above. chest Pain Score (Numeric/FACES): 5 - Related Data Allergies Allergy/AdvReac Type Severity Reaction Status Date / Time codeine Allergy Anaphylactic Verified 03/29/20 15:59 Shock latex Allergy Rash Verified 03/29/20 15:59 Latex, Natural Rubber Allergy Rash Verified 03/29/20 15:59 meperidine HCl [From Demerol] Allergy Anaphylactic Verified 03/29/20 15:59 Shock morphine Allergy Anaphylactic Verified 03/29/20 15:59 Shock shellfish derived Allergy Rash Verified 03/29/20 15:59 Home Meds: Home Meds Albuterol [Ventolin HFA] 2 puff INH Q2HR PRN 06/02/14 [History] Albuterol/Ipratropium [DuoNeb 3.0-0.5 MG/3 ML] 3 ml NEB Q6HRRT PRN 01/04/16 [History] EPINEPHrine [Epipen] 1 injection SQ ASDIRECTED PRN 01/06/18 [History] Fluticasone Propion/Salmeterol [Advair 250-50 Diskus] 2 puff INH DAILY 07/19/18 [History] DULoxetine [Cymbalta] 20 mg PO DAILY 06/15/19 [History] Tiotropium [Spiriva] 18 mcg INH BID 06/15/19 [History] Past Medical History - Past Health History Medical/Surgical History: Denies Medical/Surgical History HEENT History: Reports: Allergic Rhinitis Other HEENT History: dental abcess, broken teeth, astigmatism Cardiovascular History: Reports: None Respiratory History: Reports: Asthma, Bronchitis, Recurrent, COPD, Pneumonia, Recurrent, Other (See Below) Other Respiratory History: on home 02 prn Gastrointestinal History: Reports: Chronic Constipation Other Gastrointestinal History: constipation a chronic issue since intestinal growth removed Genitourinary History: Reports: UTI, Recurrent N[employer] 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[employer] LEADER History: Reports: None Musculoskeletal History: Reports: Fracture, Other (See Below) Other Musculoskeletal History: Bulging disc Neurological History: Reports: Other (See Below) Other Neuro History: tourette syndrome Psychiatric History: Reports: Anxiety, Depression, PTSD, Other (See Below) Other Psychiatric History: borderline personality disorder Endocrine/Metabolic History: Reports: None Hematologic History: Reports: Anemia Immunologic History: Reports: None Oncologic (Cancer) History: Reports: None Dermatologic History: Reports: None - Infectious Disease History Infectious Disease History: Reports: Chicken Pox - Past Surgical History Head Surgeries/Procedures: Reports: None HEENT Surgical History: Reports: None Respiratory Surgical History: Reports: None GI Surgical History: Reports: Appendectomy, Other (See Below) Other GI Surgeries/Procedures: removal of growth on intestines Female Surgical History: Reports: None Musculoskeletal Surgical History: Reports: None Social & Family History - Family History Family Medical History: Noncontributory HEENT: Reports: Impaired Vision Cardiac: Reports: Heart Failure Respiratory: Reports: Asthma GI: Reports: None : Reports: Renal Disease/Insufficiency OBGYN: Reports: None Musculoskeletal: Reports: Arthritis Neurological: Reports: Dementia Psychiatric: Reports: Anxiety, Depression Endocrine/Metabolic: Reports: Diabetes, type II Hematologic: Reports: Anemia Dermatologic: Reports: Other (See Below) Other Dermatologic Family History: skin allergy, eczema Oncologic: Reports: Colon, Leukemia - Tobacco Use Smoking Status *Q: Never Smoker - Caffeine Use Caffeine Use: Reports: Coffee, Energy Drinks, Soda, Tea Other Caffeine Use: 1-2 energy drink per day Caffeine Use Comment: 2cups coffe/day; 2 drinks/day - Recreational Drug Use Recreational Drug Use: No ED ROS GENERAL - Review of Systems Review Of Systems: See Below ED EXAM, GENERAL - Physical Exam Exam: See Below Course - Vital Signs Text/Narrative:: He was given a DuoNeb in the ED and some Decadron a chest x-ray will be obtained. One-view portable chest read by radiology as negative. I am unable to read these at the time because of power outages. She was reassessed at 5:45 PM she is feeling better she has all the medicine she needs at home she will be discharged follow-up with primary care return to the ED if you are worsening in spite of using her nebulizers at home Last Recorded V/S: Last Vital Signs Temp 36.3 C 03/29/20 15:55 Pulse 74 03/29/20 17:35 Resp 20 03/29/20 15:55 BP 145/83 H 03/29/20 17:35 Pulse Ox 97 03/29/20 17:35 - Orders/Labs/Meds Orders: Active Orders 24 hr Category Date Time Status RT Aerosol Therapy [RC] ASDIRECTED Care 03/29/20 16:07 Active Meds: Medications Discontinued Medications Generic Name Dose Route Start Last Admin Trade Name Brian PRN Reason Stop Dose Admin Albuterol/Ipratropium 3 ml 03/29/20 16:06 03/29/20 16:11 Duoneb 3.0-0.5 Mg/3 Ml NEB 03/29/20 16:07 3 ml ONETIME ONE Administration Dexamethasone 8 mg 03/29/20 16:07 03/29/20 16:39 Dexamethasone PO 03/29/20 16:08 Not Given ONETIME ONE Dexamethasone Confirm 03/29/20 16:26 03/29/20 16:39 Dexamethasone Administered 03/29/20 16:27 Not Given Dose 10 mg .ROUTE .STK-MED ONE Dexamethasone 8 mg 03/29/20 16:31 03/29/20 16:32 Dexamethasone PO 03/29/20 16:32 8 mg ONETIME ONE Administration Departure - Departure Time of Disposition: 17:50 Disposition: Home, Self-Care 01 Preliminary Cause of *Q: Sepsis & Multi System Organ Failure Condition: Good Clinical Impression: Asthma exacerbation - Discharge Information *PRESCRIPTION DRUG MONITORING PROGRAM REVIEWED*: Not Applicable *COPY OF PRESCRIPTION DRUG MONITORING REPORT IN PATIENT ELIJAH: Not Applicable Instructions: Asthma, Adult Referrals: Yennifer De Souza MD [Primary Care Provider] - Additional Instructions: The following information is given to patients seen in the emergency department who are being discharged to home. This information is to outline your options for follow-up care. We provide all patients seen in our emergency department with a follow-up referral. The need for follow-up, as well as the timing and circumstances, are variable depending upon the specifics of your emergency department visit. If you don't have a primary care physician on staff, we will provide you with a referral. We always advise you to contact your personal physician following an emergency department visit to inform them of the circumstance of the visit and for follow-up with them and/or the need for any referrals to a consulting specialist. The emergency department will also refer you to a specialist when appropriate. This referral assures that you have the opportunity for follow-up care with a specialist. All of these measure are taken in an effort to provide you with optimal care, which includes your follow-up. Under all circumstances we always encourage you to contact your private physician who remains a resource for coordinating your care. When calling for follow-up care, please make the office aware that this follow-up is from your recent emergency room visit. If for any reason you are refused follow-up, please contact the [facility] Emergency Department at and asked to speak to the emergency department charge nurse. Sepsis Event Note (ED) - Focused Exam Vital Signs: Vital Signs Temp Pulse Resp BP Pulse Ox 03/29/20 17:35 74 145/83 H 97 03/29/20 15:55 36.3 C 76 20 145/83 H 99 - My Orders Last 24 Hours: My Active Orders 03/29/20 16:07 RT Aerosol Therapy [RC] ASDIRECTED - Assessment/Plan Last 24 Hours: My Active Orders 03/29/20 16:07 RT Aerosol Therapy [RC] ASDIRECTED
[2020-03-29 18:03] VITALS: PULSE 68
== END 2020-03-29 18:04 | disposition home or self-care (01) ==
LOC: MW.ED 15:36
DX: J45.901 Unspecified asthma with (acute) exacerbation (principal); F41.9 Anxiety disorder, unspecified; F32.9 Major depressive disorder, single episode, unspecified; Z79.899 Other long term (current) drug therapy; Z91.040 Latex allergy status; Z88.5 Allergy status to narcotic agent; Z91.013 Allergy to seafood; Z99.81 Dependence on supplemental oxygen
CPT/HCPCS: 71045; 94640; 99285; J1100; 99282; J7620-GY

== ENCOUNTER 2020-09-21 16:47 | Emergency (ER) | payer MEDICARE, MEDICAID ==
[2020-09-21] MEDS ORDERED: Dexamethasone 10 MG/ML SDV PO ONE (18:16)
--- NOTE | 2020-09-21 18:36 | CR ---
INDICATION: Patient with dyspnea and asthma. Oxygen dependent COMPARISON: March 29, 2020 TECHNIQUE: Single-view portable chest radiograph FINDINGS: TUBES AND LINES: None. HEART AND MEDIASTINUM: The heart size is normal. The mediastinal contour appears normal for patient age. LUNGS AND PLEURAL SPACES: The lungs appear normal.The pleural spaces are unremarkable. OSSEOUS STRUCTURES: Age-appropriate appearance. No acute focal finding. IMPRESSION: No evidence of active pulmonary disease. Dictated by Lacho Quinn MD @ Sep 21 2020 6:34PM Signed by Dr. Lacho Quinn @ Sep 21 2020 6:35PM
--- NOTE | 2020-09-21 19:37 | EDM.PDOC ---
ED HPI GENERAL MEDICAL PROBLEM - General Chief Complaint: ENT Problem Stated Complaint: SORE THROAT, NOT FEELING WELL Time Seen by Provider: 09/21/20 16:59 Source of Information: Reports: Patient History Limitations: Reports: No Limitations - History of Present Illness INITIAL COMMENTS - FREE TEXT/NARRATIVE: HISTORY AND PHYSICAL: History of present illness: Patient is a 25-year-old female who presents emergency room today with concern of sore throat and cough x 1 day. Patient states she has an extensive history of lung concerns and has COPD/asthma that requires her to be on 2 L nasal cannula of oxygen at all times. Patient states that she follows with a manager leadership development in [place] and was supposed to go to the [facility] 2 years ago for further evaluation of her disease process. Patient states that she has not gone to [facility] as she cannot afford to do this. States because of this, she was chronically hypoxic in the 80s so was placed on 2 L nasal cannula all the time by her manager leadership development. Patient states that she is told she has COPD/asthma but states that she has not completed the evaluation of her disease process as she cannot make the referrals as suggested by her manager leadership development. States she has had to be intubated for severe COPD/asthma exacerbations but has not had this occur in several years. Patient states that she is concerned for possible COVID-19 infection as she also has a sore throat. Patient states that she has been using her at home asthma inhalers and abiding by her asthma action plan. Patient denies any other symptoms or concerns. Patient denies fever, chills, chest pain, shortness of breath. Denies headache, neck stiff ness, change in vision, syncope, or near syncope. Denies nausea, vomiting, abdominal pain, diarrhea, constipation, or dysuria. Has not noted any blood in urine or stool. Patient has been eating and drinking appropriately. Review of systems: As per history of present illness and below otherwise all systems reviewed and negative. Past medical history: As per history of present illness and as reviewed below otherwise noncontributory. Surgical history: As per history of present illness and as reviewed below otherwise noncontributory. Social history: See social history for further information Family history: As per history of present illness and as reviewed below otherwise noncontributory. Physical exam: General: Patient is alert, oriented, and in no acute distress. Patient sitting comfortably on exam table. Vital stable and reviewed by me. Patient is on 2 L nasal cannula with her at home oxygen tank which is baseline according to patient. HEENT: Atraumatic, normocephalic, pupils equal and reactive bilaterally, negative for conjunctival pallor or scleral icterus, mucous membranes moist, TMs normal bilaterally, throat clear, uvula midline, neck supple, nontender, trachea midline. No drooling or trismus noted. No meningeal signs. No hot potato voice noted. Lungs: Patient speaking clearly without breathlessness, no wheezing or stridor, no accessory muscle use or respiratory distress. Auscultation deferred due to current COV-ID 19 outbreak. Heart: Auscultation deferred due to current COV-ID 19 outbreak. Abdomen: Soft, nondistended, nontender. Negative for masses or hepatosplenomegaly. Negative for costovertebral tenderness. Pelvis: Stable nontender. Genitourinary: Deferred. Rectal: Deferred. Skin: Intact, warm, dry. No lesions or rashes noted. Extremities: Atraumatic, negative for cords or calf pain. Neurovascular unremarkable. Neuro: Awake, alert, oriented. Cranial nerves II through XII unremarkable. Cerebellum unremarkable. Motor and sensory unremarkable throughout. Exam nonfocal. Notes: Patient is on 2 L nasal cannula with her at home oxygen tank at bedside. Per p atient this is her baseline and she has not had any change in her baseline oxygen requirements. Patient has all of her inhalers and states that she has multiple refills available to her. Discussed importance for follow-up with her primary care provider/manager leadership development. Voices understanding and is agreeable to plan of care. Denies any further questions or concerns at this time. Diagnostics: Covid, strep, chest x-ray Therapeutics: Decadron Prescription: Prednisone Impression: Asthma exacerbation, mild Plan: 1. Take medication as prescribed. Use your asthma action plan that you have established with your primary care provider as directed and as discussed. 2. Follow-up with your primary care provider as discussed. Return to the ED as needed and as discussed. 3. For more specific guidelines regarding isolation/quarantine please visit this website. https://www.health.nd.gov/sites/www/files/documents/Files/AVERY/coronavirus/Factsh eet_for_People_With_COVID-19.pdf Definitive disposition and diagnosis as appropriate pending reevaluation and review of above. Throat Pain Score (Numeric/FACES): 2 - Related Data Allergies Allergy/AdvReac Type Severity Reaction Status Date / Time codeine Allergy Anaphylactic Verified 09/21/20 17:42 Shock latex Allergy Rash Verified 09/21/20 17:42 Latex, Natural Rubber Allergy Rash Verified 09/21/20 17:42 meperidine HCl [From Demerol] Allergy Anaphylactic Verified 09/21/20 17:42 Shock morphine Allergy Anaphylactic Verified 09/21/20 17:42 Shock shellfish derived Allergy Rash Verified 09/21/20 17:42 Home Meds: Home Meds Albuterol [Ventolin HFA] 2 puff INH Q2HR PRN 06/02/14 [History] Albuterol/Ipratropium [DuoNeb 3.0-0.5 MG/3 ML] 3 ml NEB Q6HRRT PRN 01/04/16 [History] EPINEPHrine [Epipen] 1 injection SQ ASDIRECTED PRN 01/06/18 [History] Fluticasone Propion/Salmeterol [Advair 250-50 Diskus] 2 puff INH DAILY 07/19/18 [History] DULoxetine [Cymbalta] 20 mg PO DAILY 06/15/19 [History] Tiotropium [Spiriva] 18 mcg INH BID 06/15/19 [History] predniSONE [Prednisone] 20 mg PO DAILY 5 Days #5 tablet 09/21/20 [Rx] Past Medical History - Past Health History Medical/Surgical History: Denies Medical/Surgical History HEENT History: Reports: Allergic Rhinitis Other HEENT History: dental abcess, broken teeth, astigmatism Cardiovascular History: Reports: None Respiratory History: Reports: Asthma, Bronchitis, Recurrent, COPD, Pneumonia, Recurrent, Other (See Below) Other Respiratory History: on home 02 prn Gastrointestinal History: Reports: Chronic Constipation Other Gastrointestinal History: constipation a chronic issue since intestinal growth removed Genitourinary History: Reports: UTI, 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: Reports: None Musculoskeletal History: Reports: Fracture, Other (See Below) Other Musculoskeletal History: Bulging disc Neurological History: Reports: Other (See Below) Other Neuro History: tourette syndrome Psychiatric History: Reports: Anxiety, Depression, PTSD, Other (See Below) Other Psychiatric History: borderline personality disorder Endocrine/Metabolic History: Reports: None Hematologic History: Reports: Anemia Immunologic History: Reports: None Oncologic (Cancer) History: Reports: None Dermatologic History: Reports: None - Infectious Disease History Infectious Disease History: Reports: Chicken Pox - Past Surgical History Head Surgeries/Procedures: Reports: None HEENT Surgical History: Reports: None Respiratory Surgical History: Reports: None GI Surgical History: Reports: Appendectomy, Other (See Below) Other GI Surgeries/Procedures: removal of growth on intestines Female Surgical History: Reports: None Musculoskeletal Surgical History: Reports: None Social & Family History - Family History Family Medical History: No Pertinent Family History HEENT: Reports: Impaired Vision Cardiac: Reports: Heart Failure Respiratory: Reports: Asthma GI: Reports: None : Reports: Renal Disease/Insufficiency OBGYN: Reports: None Musculoskeletal: Reports: Arthritis Neurological: Reports: Dementia Psychiatric: Reports: Anxiety, Depression Endocrine/Metabolic: Reports: Diabetes, type II Hematologic: Reports: Anemia Dermatologic: Reports: Other (See Below) Other Dermatologic Family History: skin allergy, eczema Oncologic: Reports: Colon, Leukemia - Tobacco Use Tobacco Use Status *Q: Unknown Ever Used Tobacco - Caffeine Use Caffeine Use: Reports: Coffee, Energy Drinks, Soda, Tea Other Caffeine Use: 1-2 energy drink per day Caffeine Use Comment: 2cups coffe/day; 2 drinks/day ED ROS GENERAL - Review of Systems Review Of Systems: Comprehensive ROS is negative, except as noted in HPI. ED EXAM, GENERAL - Physical Exam Exam: See Below (see dictation) Course - Vital Signs Last Recorded V/S: Last Vital Signs Temp 97.7 F 09/21/20 17:31 Pulse 74 09/21/20 19:44 Resp 16 09/21/20 19:44 BP 169/98 H 09/21/20 19:44 Pulse Ox 98 09/21/20 19:44 - Orders/Labs/Meds Orders: Active Orders 24 hr Category Date Time Status CULTURE STREP A CONFIRMATION [] Stat Lab 09/21/20 18:28 Results STREP SCRN A RAPID W CULT CONF [RM] Stat Lab 09/21/20 18:28 Results Labs: Laboratory Tests 09/21/20 Range/Units 18:28 SARS-CoV-2 RNA (ABIDA) NEGATIVE (NEGATIVE) Meds: Medications Discontinued Medications Generic Name Dose Route Start Last Admin Trade Name Freq PRN Reason Stop Dose Admin Dexamethasone 8 mg 09/21/20 18:16 09/21/20 18:24 Decadron PO 09/21/20 18:17 8 mg ONETIME ONE Administration Departure - Departure Time of Disposition: 19:36 Disposition: Home, Self-Care 01 Clinical Impression: Asthma exacerbation Qualifiers: Asthma severity: mild Asthma persistence: persistent Qualified Code(s): J45.31 - Mild persistent asthma with (acute) exacerbation - Discharge Information Prescriptions: predniSONE [Prednisone] 20 mg PO DAILY 5 Days #5 tablet Instructions: Asthma, Adult, [id number] Referrals: Yennifer De Souza MD [Primary Care Provider] - Forms: ED Department Discharge Additional Instructions: The following information is given to patients seen in the emergency department who are being discharged to home. This information is to outline your options for follow-up care. We provide all patients seen in our emergency department with a follow-up referral. The need for follow-up, as well as the timing and circumstances, are variable depending upon the specifics of your emergency department visit. If you don't have a primary care physician on staff, we will provide you with a referral. We always advise you to contact your personal physician following an emergency department visit to inform them of the circumstance of the visit and for follow-up with them and/or the need for any referrals to a consulting specialist. The emergency department will also refer you to a specialist when appropriate. This referral assures that you have the opportunity for follow-up care with a specialist. All of these measure are taken in an effort to provide you with optimal care, which includes your follow-up. Under all circumstances we always encourage you to contact your private physician who remains a resource for coordinating your care. When calling for follow-up care, please make the office aware that this follow-up is from your recent emergency room visit. If for any reason you are refused follow-up, please contact the [facility] Emergency Department at and asked to speak to the emergency department charge nurse. [facility] [address] [place] [id number] [id number] 1. Take medication as prescribed. Use your asthma action plan that you have established with your primary care provider as directed and as discussed. 2. Follow-up with your primary care provider as discussed. Return to the ED as needed and as discussed. 3. For more specific guidelines regarding isolation/quarantine please visit this website. https://www.health.nd.gov/s ites/www/files/documents/Files/AVERY/coronavirus/Factsheet_for_People_With_COVID- 19.pdf Sepsis Event Note (ED) - Evaluation Sepsis Screening Result: No Definite Risk - My Orders Last 24 Hours: My Active Orders 09/21/20 18:28 CULTURE STREP A CONFIRMATION [RM] Stat STREP SCRN A RAPID W CULT CONF [RM] Stat - Assessment/Plan Last 24 Hours: My Active Orders 09/21/20 18:28 CULTURE STREP A CONFIRMATION [RM] Stat STREP SCRN A RAPID W CULT CONF [RM] Stat
[2020-09-21 19:44] VITALS: BP 169/98; PULSE 74
== END 2020-09-21 19:44 | disposition home or self-care (01) ==
LOC: MW.ED 16:47
DX: J45.901 Unspecified asthma with (acute) exacerbation (principal); F32.9 Major depressive disorder, single episode, unspecified; F41.9 Anxiety disorder, unspecified; Z88.5 Allergy status to narcotic agent; Z91.040 Latex allergy status; Z91.013 Allergy to seafood; Z79.899 Other long term (current) drug therapy; Z20.822 Contact with and (suspected) exposure to COVID-19; Z99.81 Dependence on supplemental oxygen
CPT/HCPCS: 71045; 87081; 87880; 99284; J1100; U0002; 99282

== ENCOUNTER 2021-02-16 15:02 | Emergency (ER) | payer MEDICARE, MEDICAID ==
[2021-02-16] MEDS ORDERED: Ketorolac 60 MG/2 ML SDV IM ONE (15:43)
--- NOTE | 2021-02-16 16:33 | CR ---
INDICATION: Injury. FINDINGS: Three views of the left hand show no evidence of acute fracture or dislocation. No other bony or soft tissue abnormalities identified. Dictated by Jose Oreilly MD @ 02/16/2021 4:32:[address] Jose Oreilly @ Feb 16 2021 4:32PM
--- NOTE | 2021-02-16 16:40 | EDM.PDOC ---
ED HPI GENERAL MEDICAL PROBLEM - General Chief Complaint: Upper Extremity Injury/Pain Stated Complaint: LFT WRIST AND HAND Time Seen by Provider: 02/16/21 15:08 Source of Information: Reports: Patient History Limitations: Reports: No Limitations - History of Present Illness INITIAL COMMENTS - FREE TEXT/NARRATIVE: HISTORY AND PHYSICAL: History of present illness: Patient is a 26-year-old female resents to the ED today with concern of left hand injury that occurred just prior to arrival to the ED. Patient states that she was installing a window air conditioning unit when it fell off the ledge and onto her left hand. Patient states that she has some swelling to her left outer hand and it is painful to this area but states she is fully able to move the hand. Patient denies any break in the skin or excoriation and denies any other symptoms or concerns. Patient denies fever, chills, chest pain, shortness of breath, or cough. Denies headache, neck stiff ness, change in vision, syncope, or near syncope. Denies nausea, vomiting, abdominal pain, diarrhea, constipation, or dysuria. Has not noted any blood in urine or stool. Patient has been eating and drinking appropri ately. Review of systems: As per history of present illness and below otherwise all systems reviewed and negative. Past medical history: As per history of present illness and as reviewed below otherwise noncontributory. Surgical history: As per history of present illness and as reviewed below otherwise noncontributory. Social history: See social history for further information Family history: As per history of present illness and as reviewed below otherwise noncontributory. Physical exam: General: Patient is alert, oriented, and in no acute distress. Patient sitting comfortably on exam table. Vitals stable and reviewed by me. HEENT: Atraumatic, normocephalic, pupils equal and reactive bilaterally, negative for conjunctival pallor or scleral icterus, mucous membranes moist, TMs normal bilaterally, throat clear, neck supple, nontender, trachea midline. No drooling or trismus noted. No meningeal signs. No hot potato voice noted. Lungs: Clear to auscultation, breath sounds equal bilaterally, chest nontender. Heart: S1S2, regular rate and rhythm without overt murmur Abdomen: Soft, nondistended, nontender. Negative for masses or hepatosplenomegaly. Negative for costovertebral tenderness. Pelvis: Stable nontender. Genitourinary: Deferred. Rectal: Deferred. Skin: Intact, warm, dry. No lesions or rashes noted. Extremities: There is a contusion noted to the left hand medial dorsal hand with pain to palpation of this area without gross obvious deformity. Full ROM of the complete left hand/wrist and LUE. Radial pulse grossly intact of the LUE with cap refill < 2 seconds. Otherwise, atraumatic, negative for cords or calf pain. Neurovascular unremarkable. Neuro: Awake, alert, oriented. Cranial nerves II through XII unremarkable. Cerebellum unremarkable. Motor and sensory unremarkable throughout. Exam nonfocal. Notes: Signs and symptoms are prompt return to the ED thoroughly discussed with patient. Discussed importance for follow-up with a primary care provider. Voices understanding and is agreeable to plan of care. Denies any further questions or concerns at this time. Diagnostics: Hand XR Therapeutics: Toradol IM Prescription: None Impression: Left hand injury / contusion Plan: 1. You can alternate ibuprofen and Tylenol as directed for pain and discomfort. 2. Follow-up with a primary care provider as discussed. Return to the ED as needed and as discussed. Definitive disposition and diagnosis as appropriate pending reevaluation and review of above. Left Hand Pain Score (Numeric/FACES): 8 - Related Data Allergies Allergy/AdvReac Type Severity Reaction Status Date / Time codeine Allergy Anaphylactic Verified 02/16/21 15:20 Shock latex Allergy Rash Verified 02/16/21 15:20 Latex, Natural Rubber Allergy Rash Verified 02/16/21 15:20 meperidine HCl [From Demerol] Allergy Anaphylactic Verified 02/16/21 15:20 Shock morphine Allergy Anaphylactic Verified 02/16/21 15:20 Shock shellfish derived Allergy Rash Verified 02/16/21 15:20 Home Meds: Home Meds Albuterol [Ventolin HFA] 2 puff INH Q2HR PRN 06/02/14 [History] Albuterol/Ipratropium [DuoNeb 3.0-0.5 MG/3 ML] 3 ml NEB Q6HRRT PRN 01/04/16 [History] EPINEPHrine [Epipen] 1 injection SQ ASDIRECTED PRN 01/06/18 [History] Fluticasone Propion/Salmeterol [Advair 250-50 Diskus] 2 puff INH DAILY 07/19/18 [History] DULoxetine [Cymbalta] 20 mg PO DAILY 06/15/19 [History] Tiotropium [Spiriva] 18 mcg INH BID 06/15/19 [History] predniSONE [Prednisone] 20 mg PO DAILY 5 Days #5 tablet 09/21/20 [Rx] Past Medical History - Past Health History Medical/Surgical History: Denies Medical/Surgical History HEENT History: Reports: Allergic Rhinitis Other HEENT History: dental abcess, broken teeth, astigmatism Cardiovascular History: Reports: None Respiratory History: Reports: Asthma, Bronchitis, Recurrent, COPD, Pneumonia, Recurrent, Other (See Below) Other Respiratory History: on home 02 prn Gastrointestinal History: Reports: Chronic Constipation Other Gastrointestinal History: constipation a chronic issue since intestinal growth removed Genitourinary History: Reports: UTI, Recurrent NEGATIVE TURNER History: Reports: None Musculoskeletal History: Reports: Fracture, Other (See Below) Other Musculoskeletal History: Bulging disc Neurological History: Reports: Other (See Below) Other Neuro History: tourette syndrome Psychiatric History: Reports: Anxiety, Depression, PTSD, Other (See Below) Other Psychiatric History: borderline personality disorder Endocrine/Metabolic History: Reports: None Hematologic History: Reports: Anemia Immunologic History: Reports: None Oncologic (Cancer) History: Reports: None Dermatologic History: Reports: None - Infectious Disease History Infectious Disease History: Reports: Chicken Pox - Past Surgical History Head Surgeries/Procedures: Reports: None HEENT Surgical History: Reports: None Respiratory Surgical History: Reports: None GI Surgical History: Reports: Appendectomy, Other (See Below) Other GI Surgeries/Procedures: removal of growth on intestines Female Surgical History: Reports: None Musculoskeletal Surgical History: Reports: None Social & Family History - Family History Family Medical History: No Pertinent Family History HEENT: Reports: Impaired Vision Cardiac: Reports: Heart Failure Respiratory: Reports: Asthma GI: Reports: None : Reports: Renal Disease/Insufficiency OBGYN: Reports: None Musculoskeletal: Reports: Arthritis Neurological: Reports: Dementia Psychiatric: Reports: Anxiety, Depression Endocrine/Metabolic: Reports: Diabetes, type II Hematologic: Reports: Anemia Dermatologic: Reports: Other (See Below) Other Dermatologic Family History: skin allergy, eczema Oncologic: Reports: Colon, Leukemia - Tobacco Use Tobacco Use Status *Q: Never Tobacco User - Caffeine Use Caffeine Use: Reports: None Other Caffeine Use: 1-2 energy drink per day Caffeine Use Comment: 2cups coffe/day; 2 drinks/day - Recreational Drug Use Recreational Drug Use: Yes Drug Use in Last 12 Months: Yes Recreational Drug Type: Reports: Marijuana/Hashish Recreational Drug Use Frequency: Weekly Review of Systems - Review of Systems Review Of Systems: Comprehensive ROS is negative, except as noted in HPI. ED EXAM, GENERAL - Physical Exam Exam: See Below (see dictation) Course - Vital Signs Last Recorded V/S: Last Vital Signs Temp 98.0 F 02/16/21 16:55 Pulse 72 02/16/21 16:55 Resp 18 02/16/21 16:55 BP 134/78 02/16/21 16:55 Pulse Ox 94 L 02/16/21 16:55 - Orders/Labs/Meds Meds: Medications Discontinued Medications Generic Name Dose Route Start Last Admin Trade Name Freq PRN Reason Stop Dose Admin Ketorolac Tromethamine 60 mg 02/16/21 15:43 02/16/21 15:48 Ketorolac 60 Mg/2 Ml Sdv IM 02/16/21 15:44 60 mg ONETIME ONE Administration Departure - Departure Time of Disposition: 16:39 Disposition: Home, Self-Care 01 Clinical Impression: Injury of left hand Qualifiers: Encounter type: initial encounter Qualified Code(s): S69.92XA - Unspecified injury of left wrist, hand and finger(s), initial encounter - Discharge Information Instructions: Crush Injury of the Hand Referrals: Yennifer De Souza MD [Primary Care Provider] - Forms: ED Department Discharge Additional Instructions: The following information is given to patients seen in the emergency department who are being discharged to home. This information is to outline your options for follow-up care. We provide all patients seen in our emergency department with a follow-up referral. The need for follow-up, as well as the timing and circumstances, are variable depending upon the specifics of your emergency department visit. If you don't have a primary care physician on staff, we will provide you with a referral. We always advise you to contact your personal physician following an emergency department visit to inform them of the circumstance of the visit and for follow-up with them and/or the need for any referrals to a consulting specialist. The emergency department will also refer you to a specialist when appropriate. This referral assures that you have the opportunity for follow-up care with a specialist. All of these measure are taken in an effort to provide you with optimal care, which includes your follow-up. Under all circumstances we always encourage you to contact your private physician who remains a resource for coordinating your care. When calling for follow-up care, please make the office aware that this follow-up is from your recent emergency room visit. If for any reason you are refused follow-up, please contact the [facility] Emergency Department at and asked to speak to the emergency department charge nurse. [facility] [address] [place] [address] [id number] [facility] [place] [address] [place] [id number] 1. You can alternate ibuprofen and Tylenol as directed for pain and discomfort. 2. Follow-up with a primary care provider as discussed. Return to the ED as needed and as discussed. Sepsis Event Note (ED) - Evaluation Sepsis Screening Result: No Definite Risk
[2021-02-16 21:17] VITALS: BP 134/78; PULSE 72
== END 2021-02-16 16:56 | disposition home or self-care (01) ==
LOC: MW.ED 15:02
DX: S60.222A Contusion of left hand, initial encounter (principal); J44.9 Chronic obstructive pulmonary disease, unspecified; Z88.5 Allergy status to narcotic agent; Z91.040 Latex allergy status; Z88.8 Allergy status to other drugs, medicaments and biological substances; Z91.013 Allergy to seafood; Z79.899 Other long term (current) drug therapy; W20.8XXA Other cause of strike by thrown, projected or falling object, initial encounter
CPT/HCPCS: 73130; 96372; 99283; J1885

== ENCOUNTER 2021-09-04 21:50 | Emergency (ER) | payer MEDICARE, MEDICAID ==
[2021-09-04 21:56] VITALS: BP 119/81
[2021-09-04] MEDS ORDERED: Albuterol/Ipratropium 3.0-0.5 MG/3 ML Neb Soln ONE (21:56)
[2021-09-04] MEDS ORDERED: Sodium Chloride 0.9% 10 ML Syringe FLUSH PRN (21:56)
[2021-09-04] MEDS ORDERED: Sodium Chloride 0.9% 2.5 ML Syringe FLUSH PRN (21:56)
[2021-09-04] MEDS ORDERED: Sodium Chloride 0.9% 1,000 ML IV ONE (21:56)
[2021-09-04] MEDS ORDERED: methylPREDNISolone Sodium Succinate 125 MG/2 ML SDV IVPUSH ONE (21:56)
[2021-09-04] MEDS ORDERED: Albuterol/Ipratropium 3.0-0.5 MG/3 ML Neb Soln NEB ONE (21:56)
--- NOTE | 2021-09-04 21:59 | EDM.PDOC ---
ED HPI GENERAL MEDICAL PROBLEM - General Chief Complaint: Respiratory Problem Stated Complaint: SOB Time Seen by Provider: 09/04/21 21:53 - History of Present Illness INITIAL COMMENTS - FREE TEXT/NARRATIVE: History of present illness: [] This patient with a history of lung disease says that for 2 days after the weather is cold she not responding well to her breathing treatments and inhaled steroids. She has prolonged history of asthma. She has been admitted to the hospital multiple times. 4 years ago or more she was intubated. The patient has not had recent severe enough infection or asthma attack to be intubated. The patient did take a nebulizer treatment an hour before arrival. The patient had COVID-19 infection several weeks ago. She is not vaccinated. The patient denies fever and chills but has coughing episodes make it difficult for her to breathe. At baseline she still short of breath for the last 2 days. This patient was seen and evaluated during the 2019 SARS-CoV-2 novel coronavirus pandemic period. Community viral transmission is ongoing at time of this encounter and the emergency department is operating under pandemic response procedures. Patient is oxygen dependent at home Review of systems: As per history of present illness and below otherwise all systems reviewed and negative. Past medical history: As per history of present illness and as reviewed below otherwise noncontributory. Surgical history: As per history of present illness and as reviewed below otherwise noncontributory. Social history: No reported history of drug or alcohol abuse. Family history: As per history of present illness and as reviewed below otherwise noncontributory. Physical exam: Constitutional - well developed, well-nourished and in no acute distress HEENT - normocephalic, no evidence of trauma - external nose and mouth normal - no mass in neck and no JVD - mucosae moist EYES - full EOM, PERRL, no icterus - no evidence of inflammation, injection, or drainage Respiratory -mild respiratory distress, equal bilateral expansion, lungs markedly diminished with prolonged expiratory phase of respiration. Cardiovascular - Regular Rhythm with S1 and S2 appreciated and no murmur, gallop or rub. GI - abdomen soft without distension or organomegaly - normal bowel sounds - no guard or rebound Musculoskeletal no gross deformity of long bones or joints - no tenderness, swelling or edema Neurologic - Alert and oriented times four - CN II-XII grossly intact - motor sensory and coordination symmetrically normal Psychiatric - appropriate mood and affect with normal thought content Hematologic - No petechiae or purpura - mucosa appropriate color and sclera not pale - normal nail bed color and refill Integument - no rash or evidence of trauma - normal turgor Diagnostics: [] Therapeutics: [] Impression: [] Plan: [] Definitive disposition and diagnosis as appropriate pending reevaluation and review of above. Upper Chest Pain Score (Numeric/FACES): 6 - Related Data Allergies Allergy/AdvReac Type Severity Reaction Status Date / Time codeine Allergy Anaphylactic Verified 09/04/21 21:57 Shock latex Allergy Rash Verified 09/04/21 21:57 Latex, Natural Rubber Allergy Rash Verified 09/04/21 21:57 meperidine HCl [From Demerol] Allergy Anaphylactic Verified 09/04/21 21:57 Shock morphine Allergy Anaphylactic Verified 09/04/21 21:57 Shock shellfish derived Allergy Rash Verified 09/04/21 21:57 Home Meds: Home Meds Albuterol [Ventolin HFA] 2 puff INH Q2HR PRN 06/02/14 [History] Albuterol/Ipratropium [DuoNeb 3.0-0.5 MG/3 ML] 3 ml NEB Q6HRRT PRN 01/04/16 [History] EPINEPHrine [Epipen] 1 injection SQ ASDIRECTED PRN 01/06/18 [History] Fluticasone Propion/Salmeterol [Advair 250-50 Diskus] 2 puff INH DAILY 07/19/18 [History] DULoxetine [Cymbalta] 20 mg PO DAILY 06/15/19 [History] Tiotropium [Spiriva] 18 mcg INH BID 06/15/19 [History] predniSONE [Prednisone] 20 mg PO DAILY 5 Days #5 tablet 09/21/20 [Rx] ALPRAZolam [Xanax] 0.25 mg PO TID PRN 09/04/21 [History] Levonorgestrel/Ethin.estradiol [Lillow-28 Tablet] 1 tab PO DAILY 09/04/21 [ History] predniSONE [Prednisone] 60 mg PO DAILY 5 Days #15 tablet 09/04/21 [Rx] Past Medical History - Past Health History Medical/Surgical History: Denies Medical/Surgical History HEENT History: Reports: Allergic Rhinitis Other HEENT History: dental abcess, broken teeth, astigmatism Cardiovascular History: Reports: None Respiratory History: Reports: Asthma, Bronchitis, Recurrent, COPD, Pneumonia, Recurrent, Other (See Below) Other Respiratory History: on home 02 prn Gastrointestinal History: Reports: Chronic Constipation Other Gastrointestinal History: constipation a chronic issue since intestinal growth removed Genitourinary History: Reports: UTI, Recurrent [employer] History: Reports: None Musculoskeletal History: Reports: Fracture, Other (See Below) Other Musculoskeletal History: Bulging disc Neurological History: Reports: Other (See Below) Other Neuro History: tourette syndrome Psychiatric History: Reports: Anxiety, Depression, PTSD, Other (See Below) Other Psychiatric History: borderline personality disorder Endocrine/Metabolic History: Reports: None Hematologic History: Reports: Anemia Immunologic History: Reports: None Oncologic (Cancer) History: Reports: None Dermatologic History: Reports: None - Infectious Disease History Infectious Disease History: Reports: Chicken Pox - Past Surgical History Head Surgeries/Procedures: Reports: None HEENT Surgical History: Reports: None Respiratory Surgical History: Reports: None GI Surgical History: Reports: Appendectomy, Other (See Below) Other GI Surgeries/Procedures: removal of growth on intestines Female Surgical History: Reports: None Musculoskeletal Surgical History: Reports: None Social & Family History - Family History Family Medical History: No Pertinent Family History HEENT: Reports: Impaired Vision Cardiac: Reports: Heart Failure Respiratory: Reports: Asthma GI: Reports: None : Reports: Renal Disease/Insufficiency OBGYN: Reports: None Musculoskeletal: Reports: Arthritis Neurological: Reports: Dementia Psychiatric: Reports: Anxiety, Depression Endocrine/Metabolic: Reports: Diabetes, type II Hematologic: Reports: Anemia Dermatologic: Reports: Other (See Below) Other Dermatologic Family History: skin allergy, eczema Oncologic: Reports: Colon, Leukemia - Caffeine Use Caffeine Use: Reports: None Other Caffeine Use: 1-2 energy drink per day Caffeine Use Comment: 2cups coffe/day; 2 drinks/day ED ROS GENERAL - Review of Systems Review Of Systems: Comprehensive ROS is negative, except as noted in HPI. ED EXAM, GENERAL - Physical Exam Exam: See Below Free Text/Narrative:: My physical exam is in the HPI Course - Vital Signs Last Recorded V/S: Last Vital Signs Temp 36.7 C 09/04/21 21:51 Pulse 77 09/04/21 21:51 Resp 28 H 09/04/21 21:51 BP 119/81 09/04/21 21:51 Pulse Ox 98 09/04/21 21:51 - Orders/Labs/Meds Orders: Active Orders 24 hr Category Date Time Status Sodium Chloride 0.9% [Saline Flush] Med 09/04/21 21:56 Active 10 ml FLUSH ASDIRECTED PRN Sodium Chloride 0.9% [Saline Flush] Med 09/04/21 21:56 Active 2.5 ml FLUSH ASDIRECTED PRN Saline Lock Insert [OM.PC] Stat Oth 09/04/21 21:56 Ordered Medication Orders Sodium Chloride (Sodium Chloride 0.9% 10 Ml Syringe) 10 ml FLUSH ASDIRECTED PRN PRN Reason: Keep Vein Open Last Admin: 09/04/21 22:03 Dose: 10 ml Documented by: HEIKE Sodium Chloride (Sodium Chloride 0.9% 2.5 Ml Syringe) 2.5 ml FLUSH ASDIRECTED PRN PRN Reason: Keep Vein Open Last Admin: 09/04/21 22:03 Dose: 2.5 ml Documented by: HEIKE Labs: Laboratory Tests 09/04/21 09/04/21 Range/Units 22:30 22:55 WBC 8.36 (4.0-11.0) K/uL RBC 4.21 L (4.30-5.90) M/uL Hgb 14.0 (12.0-16.0) g/dL Hct 41.0 (36.0-46.0) % MCV 97.4 (80.0-98.0) fL MCH 33.3 H (27.0-32.0) pg MCHC 34.1 (31.0-37.0) g/dL RDW Std Deviation 43.5 (28.0-62.0) fl RDW Coeff of Jhon 12 (11.0-15.0) % Plt Count 303 (150-400) K/uL MPV 9.30 (7.40-12.00) fL Neut % (Auto) 62.0 (48.0-80.0) % Lymph % (Auto) 27.2 (16.0-40.0) % Lipscomb % (Auto) 8.0 (0.0-15.0) % Eos % (Auto) 2.6 (0.0-7.0) % Baso % (Auto) 0.2 (0.0-1.5) % Neut # (Auto) 5.2 (1.4-5.7) K/uL Lymph # (Auto) 2.3 (0.6-2.4) K/uL Lipscomb # (Auto) 0.7 (0.0-0.8) K/uL Eos # (Auto) 0.2 (0.0-0.7) K/uL Baso # (Auto) 0.0 (0.0-0.1) K/uL Nucleated RBC % 0.0 /100WBC Nucleated RBCs # 0 K/uL Influenza Type A RNA NEGATIVE (NEGATIVE) Influenza Type B RNA NEGATIVE (NEGATIVE) SARS-CoV-2 RNA (ABIDA) NEGATIVE (NEGATIVE) Meds: Medications Generic Name Dose Route Start Last Admin Trade Name Freq PRN Reason Stop Dose Admin Sodium Chloride 10 ml 09/04/21 21:56 09/04/21 22:03 Sodium Chloride 0.9% 10 Ml Syringe FLUSH 10 ml ASDIRECTED PRN Administration Keep Vein Open Sodium Chloride 2.5 ml 09/04/21 21:56 09/04/21 22:03 Sodium Chloride 0.9% 2.5 Ml Syringe FLUSH 2.5 ml ASDIRECTED PRN Administration Keep Vein Open Discontinued Medications Generic Name Dose Route Start Last Admin Trade Name Freq PRN Reason Stop Dose Admin Albuterol/Ipratropium 3 ml 09/04/21 21:56 09/04/21 22:02 Albuterol/Ipratropium 3.0-0.5 Mg/3 Ml Neb Soln NEB 09/04/21 21:57 3 ml ONETIME ONE Administration Albuterol/Ipratropium Confirm 09/04/21 21:56 09/04/21 22:03 Albuterol/Ipratropium 3.0-0.5 Mg/3 Ml Neb Soln Administered 09/04/21 21:57 Not Given Dose 3 ml .ROUTE .STK-MED ONE Sodium Chloride 1,000 mls @ 999 mls/hr 09/04/21 21:56 09/04/21 22:03 Normal Saline IV 09/04/21 22:56 999 mls/hr .Bolus ONE Administration Methylprednisolone Sodium Succinate 125 mg 09/04/21 21:56 09/04/21 22:05 Methylprednisolone Sodium Succinate 125 Mg/2 Ml Sdv IVPUSH 09/04/21 21:57 125 mg ONETIME ONE Administration Methylprednisolone Sodium Succinate Confirm 09/04/21 22:32 09/04/21 23:00 Methylprednisolone Sodium Succinate 125 Mg/2 Ml Sdv Administered 09/04/21 22:33 Not Given Dose 125 mg .ROUTE .STK-MED ONE - Re-Assessments/Exams Free Text/Narrative Re-Assessment/Exam: 09/04/21 22:35 Patient is slightly more comfortable and subjectively so after first breathing treatment 09/04/21 23:28 Patient breathing well and feels better. No respiratory distress Free Text/Narrative Re-Assessment/Exam: 09/04/21 23:58 Tolerated ambulation with her home oxygen rate. Did not desaturate. Departure - Departure Time of Disposition: 23:58 Disposition: Home, Self-Care 01 Condition: Good Clinical Impression: Acute bronchospasm Exacerbation of asthma Qualifiers: Asthma severity: mild Asthma persistence: persistent Qualified Code(s): J45.31 - Mild persistent asthma with (acute) exacerbation - Discharge Information Prescriptions: predniSONE [Prednisone] 60 mg PO DAILY 5 Days #15 tablet Instructions: Bronchospasm, Adult, [id number] Referrals: Cristiane Arguello PA [Primary Care Provider] - Forms: ED Department Discharge Additional Instructions: Increase fluids. Increase humidity in your environment. Return if worse. Medicine went to [facility]. [facility] - Primary Care [address] [place] [address] [place] [address] The following information is given to patients seen in the emergency department who are being discharged to home. This information is to outline your options for follow-up care. We provide all patients seen in our emergency department with a follow-up referral. The need for follow-up, as well as the timing and circumstances, are variable depending upon the specifics of your emergency department visit. If you don't have a primary care physician on staff, we will provide you with a referral. We always advise you to contact your personal physician following an emergency department visit to inform them of the circumstance of the visit and for follow-up with them and/or the need for any referrals to a consulting specialist. The emergency department will also refer you to a specialist when appropriate. This referral assures that you have the opportunity for follow-up care with a specialist. All of these measure are taken in an effort to provide you with optimal care, which includes your follow-up. Under all circumstances we always encourage you to contact your private physician who remains a resource for coordinating your care. When calling for follow-up care, please make the office aware that this follow-up is from your recent emergency room visit. If for any reason you are refused follow-up, please contact the [facility] Emergency Department at and asked to speak to the emergency department charge nurse. Sepsis Event Note (ED) - Evaluation Sepsis Screening Result: No Definite Risk - Focused Exam Vital Signs: Vital Signs Temp Pulse Resp BP Pulse Ox 09/04/21 21:51 36.7 C 77 28 H 119/81 98 - My Orders Last 24 Hours: My Active Orders 09/04/21 21:56 Sodium Chloride 0.9% [Saline Flush] 10 ml FLUSH ASDIRECTED PRN Sodium Chloride 0.9% [Saline Flush] 2.5 ml FLUSH ASDIRECTED PRN Saline Lock Insert [OM.PC] Stat - Assessment/Plan Last 24 Hours: My Active Orders 09/04/21 21:56 Sodium Chloride 0.9% [Saline Flush] 10 ml FLUSH ASDIRECTED PRN Sodium Chloride 0.9% [Saline Flush] 2.5 ml FLUSH ASDIRECTED PRN Saline Lock Insert [OM.PC] Stat
[2021-09-04] MEDS ORDERED: methylPREDNISolone Sodium Succinate 125 MG/2 ML SDV ONE (22:32)
--- NOTE | 2021-09-04 23:27 | CR ---
INDICATION: Dyspnea and cough TECHNIQUE: Chest radiograph 1 view COMPARISON: 05/09/2021 FINDINGS: The sensitivity and specificity of the exam are moderately limited by the patient`s body habitus. Mediastinum: The mediastinum is normal in appearance. The heart silhouette is normal in size and morphology. Lung: Both lungs are unremarkable in appearance with small lung volumes. No sign of pleural effusion seen. No pneumothorax is identified. Bone and Soft tissue: Unremarkable for age. IMPRESSION: 1. No acute cardiopulmonary disease is seen. Dictated by: Luis Guerrero MD @ 09/04/2021 23:26:36 (Electronically Signed)
[2021-09-04 23:37] LABS: CORONAVIRUS COVID-19 NAA NEGATIVE (NEGATIVE); INFLUENZA A NAA NEGATIVE (NEGATIVE); INFLUENZA B NAA NEGATIVE (NEGATIVE)
[2021-09-05 00:19] VITALS: PULSE 84
== END 2021-09-05 00:17 | disposition home or self-care (01) ==
LOC: MW.ED 21:50
DX: J45.31 Mild persistent asthma with (acute) exacerbation (principal); Z88.5 Allergy status to narcotic agent; Z91.040 Latex allergy status; Z91.030 Bee allergy status; Z91.013 Allergy to seafood; Z79.899 Other long term (current) drug therapy; Z20.822 Contact with and (suspected) exposure to COVID-19
CPT/HCPCS: 0240U; 36415; 71045; 85025; 96374; 99285; J2930; J7030; J7620-GY

== ENCOUNTER 2021-11-26 12:27 | Emergency (ER) | payer MEDICARE, MEDICAID ==
[2021-11-26] MEDS: Acetaminophen/oxyCODONE 325-5 MG Tab PO ONE (13:41)
[2021-11-26 13:45] VITALS: BP 146/83; PULSE 60
== END 2021-11-26 13:40 | disposition home or self-care (01) ==
LOC: MW.ED 12:27
DX: S59.801A Other specified injuries of right elbow, initial encounter (principal); J44.9 Chronic obstructive pulmonary disease, unspecified; Z88.5 Allergy status to narcotic agent; Z91.040 Latex allergy status; Z91.013 Allergy to seafood; Z88.8 Allergy status to other drugs, medicaments and biological substances; X50.0XXA Overexertion from strenuous movement or load, initial encounter
CPT/HCPCS: 73080; 99283; A9270

== ENCOUNTER 2022-04-20 00:12 | Emergency (ER) | payer MEDICARE, MEDICAID ==
[2022-04-20] MEDS ORDERED: Fluconazole 100 MG Tab PO ONE (00:40)
[2022-04-20 00:51] VITALS: BP 129/74; PULSE 74
== END 2022-04-20 00:51 | disposition home or self-care (01) ==
LOC: MW.ED 00:12
DX: B37.0 Candidal stomatitis (principal); Z88.5 Allergy status to narcotic agent; Z91.040 Latex allergy status; Z91.013 Allergy to seafood
CPT/HCPCS: 99282; A9270

== ENCOUNTER 2022-09-03 16:54 | Emergency (ER) | payer MEDICARE, MEDICAID ==
[2022-09-03 18:46] LABS: CORONAVIRUS COVID-19 NAA NEGATIVE (NEGATIVE); INFLUENZA A NAA NEGATIVE (NEGATIVE); INFLUENZA B NAA NEGATIVE (NEGATIVE); RESPIRATORY SYNCYTIAL VIR NAA NEGATIVE (NEGATIVE)
[2022-09-03] MEDS ORDERED: predniSONE 20 MG Tab PO ONE (19:03)
[2022-09-03 20:09] VITALS: BP 130/78; PULSE 72
== END 2022-09-03 20:05 | disposition home or self-care (01) ==
LOC: MW.ED 16:54
DX: L03.115 Cellulitis of right lower limb (principal); R05.9 Cough, unspecified; J44.9 Chronic obstructive pulmonary disease, unspecified; Z88.5 Allergy status to narcotic agent; Z91.040 Latex allergy status; Z88.6 Allergy status to analgesic agent; Z91.013 Allergy to seafood; Z79.899 Other long term (current) drug therapy; Z86.16 Personal history of COVID-19; Z20.822 Contact with and (suspected) exposure to COVID-19; Z90.49 Acquired absence of other specified parts of digestive tract
CPT/HCPCS: 0241U; 71046; 99283; A9270

== ENCOUNTER 2023-10-05 16:30 | Emergency (ER) | payer MEDICARE, MEDICAID ==
[2023-10-05 17:49] LABS: BASOPHILS ABSOLUTE AUTO 0.02 K/uL (0.00-0.20); BASOPHILS PERCENT AUTO 0.2 % (0.0-1.0); EOSINOPHILS ABSOLUTE AUTO 0.04 K/uL (0.00-0.45); EOSINOPHILS PERCENT AUTO 0.4 % (0.0-6.0); HEMATOCRIT 40.2 % (37.0-47.0); HEMOGLOBIN 14.2 g/dL (12.0-16.0); IMMATURE GRAN ABSOLUTE AUTO 0.03 K/uL (0.00-0.05); IMMATURE GRAN PERCENT AUTO 0.3 % (0.0-0.4); LYMPHOCYTES ABSOLUTE AUTO 2.57 K/uL (1.00-4.80); MEAN CORPUSCULAR HEMOGLOBIN 33.2 pg (28.0-32.0); MEAN CORPUSCULAR HGB CONC 35.3 g/dL (32.0-36.0); MEAN CORPUSCULAR VOLUME 93.9 fL (83.0-99.0); MEAN PLATELET VOLUME 9.3 fL (9.4-12.3); MONOCYTES ABSOLUTE AUTO 0.89 K/uL (0.00-0.80); NEUTROPHILS ABSOLUTE AUTO 6.35 K/uL (1.80-7.70); NEUTROPHILS PERCENT AUTO 64.1 % (41.0-71.0); PLATELET COUNT,PLT 281 K/uL (150-400); RED BLOOD CELL COUNT 4.28 M/uL (4.10-5.30)
[2023-10-05] MEDS ORDERED: Sodium Chloride 0.9% 10 ML Syringe FLUSH PRN (17:52)
[2023-10-05] MEDS ORDERED: Sodium Chloride 0.9% 2.5 ML Syringe FLUSH PRN (17:52)
[2023-10-05] MEDS ORDERED: Ondansetron 4 MG/2 ML SDV IVPUSH ONE (17:53)
[2023-10-05] MEDS ORDERED: Naloxone 0.4 MG/ML SDV IVPUSH PRN (17:53)
[2023-10-05] MEDS ORDERED: fentaNYL 50 MCG/ML SDV IVPUSH ONE (17:53)
[2023-10-05] MEDS ORDERED: HYDROmorphone 1 MG/ML Syringe IVPUSH ONE (18:05)
[2023-10-05 18:09] LABS: A/G RATIO 1.1 (0.9-1.6); BILIRUBIN TOTAL 0.3 mg/dL (0.2-1.0); CALCIUM 9.3 mg/dL (8.5-10.1); CARBON DIOXIDE,CO2 22.1 mmol/L (21.0-32.0); CREATININE 0.8 mg/dL (0.6-1.0); EST CRCL DRUG DOSING (CG) 95.05 mL/min; POTASSIUM,K 3.6 mmol/L (3.5-5.1); PROTEIN TOTAL,TP 7.7 g/dL (6.4-8.2)
[2023-10-05 18:50] LABS: APPEARANCE,URINE SLT CLOUDY; BILIRUBIN,URINE NEGATIVE (NEGATIVE); COLOR,URINE YELLOW; GLUCOSE,URINE NEGATIVE (NEGATIVE); KETONES,URINE TRACE mg/dL (NEGATIVE); LEUKOCYTE ESTERASE,URINE NEGATIVE (NEGATIVE); NITRITE,URINE NEGATIVE (NEGATIVE); OCCULT BLOOD,URINE NEGATIVE (NEGATIVE); PH,URINE 7.5 (5.0-8.0); PROTEIN,URINE NEGATIVE (NEGATIVE); UROBILINOGEN,URINE 0.2 EU/dL (<2.0)
[2023-10-05 20:01] VITALS: BP 118/63; PULSE 52
== END 2023-10-05 20:14 | disposition home or self-care (01) ==
LOC: MW.ED 16:30
DX: O99.891 Other specified diseases and conditions complicating pregnancy (principal); O99.519 Diseases of the respiratory system complicating pregnancy, unspecified trimester; R10.30 Lower abdominal pain, unspecified; J44.9 Chronic obstructive pulmonary disease, unspecified; Z3A.00 Weeks of gestation of pregnancy not specified; Z86.16 Personal history of COVID-19; Z79.899 Other long term (current) drug therapy; Z91.013 Allergy to seafood; Z88.5 Allergy status to narcotic agent; Z91.040 Latex allergy status; Z88.8 Allergy status to other drugs, medicaments and biological substances
CPT/HCPCS: 36415; 76830; 80053; 81003; 83690; 84702; 85025; 96374; 96375; 99284; J1170; J2405; J3490

== ENCOUNTER 2023-12-15 15:48 | Emergency (ER) | payer MEDICARE, MEDICAID ==
[2023-12-15 16:10] LABS: BASOPHILS ABSOLUTE AUTO 0.03 K/uL (0.00-0.20); BASOPHILS PERCENT AUTO 0.3 % (0.0-1.0); EOSINOPHILS ABSOLUTE AUTO 0.08 K/uL (0.00-0.45); EOSINOPHILS PERCENT AUTO 0.8 % (0.0-6.0); HEMATOCRIT 30.8 % (37.0-47.0); HEMOGLOBIN 11.4 g/dL (12.0-16.0); IMMATURE GRAN ABSOLUTE AUTO 0.05 K/uL (0.00-0.05); IMMATURE GRAN PERCENT AUTO 0.5 % (0.0-0.4); LYMPHOCYTES ABSOLUTE AUTO 1.91 K/uL (1.00-4.80); LYMPHOCYTES PERCENT AUTO 19.7 % (24.0-44.0); MEAN CORPUSCULAR HEMOGLOBIN 34.3 pg (28.0-32.0); MEAN CORPUSCULAR VOLUME 92.8 fL (83.0-99.0); MEAN PLATELET VOLUME 8.8 fL (9.4-12.3); MONOCYTES ABSOLUTE AUTO 0.77 K/uL (0.00-0.80); MONOCYTES PERCENT AUTO 7.9 % (0.0-8.0); NEUTROPHILS ABSOLUTE AUTO 6.87 K/uL (1.80-7.70); NEUTROPHILS PERCENT AUTO 70.8 % (41.0-71.0); PLATELET COUNT,PLT 288 K/uL (150-400); RED BLOOD CELL COUNT 3.32 M/uL (4.10-5.30); WHITE BLOOD CELL COUNT,WBC 9.71 K/uL (3.9-11.3)
[2023-12-15 16:37] LABS: A/G RATIO 0.7 (0.9-1.6); ALANINE AMINOTRANSFERASE,ALT 14 IU/L (14-63); ALBUMIN 2.8 g/dL (3.4-5.0); ALKALINE PHOSPHATASE 54 U/L (46-116); ASPARTATE AMNIOTRANSFERASE,AST 8 IU/L (15-37); BILIRUBIN TOTAL 0.2 mg/dL (0.2-1.0); BLOOD UREA NITROGEN,BUN 10 mg/dL (7.0-18.0); CALCIUM 9.1 mg/dL (8.5-10.1); CARBON DIOXIDE,CO2 21.2 mmol/L (21.0-32.0); CHLORIDE,CL 101 mmol/L (98-107); CREATININE 0.6 mg/dL (0.6-1.0); GLUCOSE RANDOM 97 mg/dL (74-106); POTASSIUM,K 3.8 mmol/L (3.5-5.1); PROTEIN TOTAL,TP 6.6 g/dL (6.4-8.2); SODIUM,NA 135 mmol/L (136-145)
[2023-12-15 16:40] LABS: ESTIMATED GFR 126 mL/min (>60)
[2023-12-15 16:41] LABS: INR < 0.93 (0.86-1.11)
[2023-12-15 17:29] LABS: APPEARANCE,URINE CLEAR; BILIRUBIN,URINE NEGATIVE (NEGATIVE); COLOR,URINE YELLOW; GLUCOSE,URINE NEGATIVE (NEGATIVE); KETONES,URINE NEGATIVE (NEGATIVE); LEUKOCYTE ESTERASE,URINE NEGATIVE (NEGATIVE); NITRITE,URINE NEGATIVE (NEGATIVE); OCCULT BLOOD,URINE NEGATIVE (NEGATIVE); PROTEIN,URINE NEGATIVE (NEGATIVE); UROBILINOGEN,URINE 0.2 EU/dL (<2.0)
[2023-12-15 18:30] VITALS: BP 118/72; PULSE 73
== END 2023-12-15 18:29 | disposition home or self-care (01) ==
LOC: MW.ED 15:48
DX: O26.852 Spotting complicating pregnancy, second trimester (principal); O99.512 Diseases of the respiratory system complicating pregnancy, second trimester; J44.89 Other specified chronic obstructive pulmonary disease; Z3A.17 17 weeks gestation of pregnancy; Z67.40 Type O blood, Rh positive; Z75.8 Other problems related to medical facilities and other health care; Z88.5 Allergy status to narcotic agent; Z91.040 Latex allergy status; Z91.013 Allergy to seafood; Z88.8 Allergy status to other drugs, medicaments and biological substances; Z79.51 Long term (current) use of inhaled steroids; Z79.82 Long term (current) use of aspirin; Z79.899 Other long term (current) drug therapy
CPT/HCPCS: 36415; 76805; 76805-26; 80053; 81003; 85025; 85610; 86900; 86901; 99282; 99284

== ENCOUNTER 2024-02-25 21:31 | Emergency (ER) | payer MEDICARE, MEDICAID ==
[2024-02-25] MEDS: Sodium Chloride 0.9% 2.5 ML Syringe FLUSH PRN (21:57)
[2024-02-25] MEDS: Sodium Chloride 0.9% 1,000 ML IV ONE (21:58)
[2024-02-25] MEDS: methylPREDNISolone Sodium Succinate 125 MG/2 ML SDV IVPUSH ONE (21:58)
[2024-02-25] MEDS: Sodium Chloride 0.9% 10 ML Syringe FLUSH PRN (21:58)
[2024-02-25 22:12] LABS: BASOPHILS ABSOLUTE AUTO 0.05 K/uL (0.00-0.20); BASOPHILS PERCENT AUTO 0.3 % (0.0-1.0); EOSINOPHILS ABSOLUTE AUTO 0.17 K/uL (0.00-0.45); EOSINOPHILS PERCENT AUTO 1.2 % (0.0-6.0); HEMATOCRIT 27.1 % (37.0-47.0); HEMOGLOBIN 9.6 g/dL (12.0-16.0); IMMATURE GRAN ABSOLUTE AUTO 0.34 K/uL (0.00-0.05); IMMATURE GRAN PERCENT AUTO 2.3 % (0.0-0.4); LYMPHOCYTES ABSOLUTE AUTO 3.01 K/uL (1.00-4.80); LYMPHOCYTES PERCENT AUTO 20.8 % (24.0-44.0); MEAN CORPUSCULAR HGB CONC 35.4 g/dL (32.0-36.0); MEAN CORPUSCULAR VOLUME 98.9 fL (83.0-99.0); MEAN PLATELET VOLUME 8.8 fL (9.4-12.3); MONOCYTES ABSOLUTE AUTO 1.48 K/uL (0.00-0.80); MONOCYTES PERCENT AUTO 10.2 % (0.0-8.0); NEUTROPHILS ABSOLUTE AUTO 9.44 K/uL (1.80-7.70); NEUTROPHILS PERCENT AUTO 65.2 % (41.0-71.0); PLATELET COUNT,PLT 246 K/uL (150-400); RED BLOOD CELL COUNT 2.74 M/uL (4.10-5.30); WHITE BLOOD CELL COUNT,WBC 14.49 K/uL (3.9-11.3)
[2024-02-25 22:36] LABS: A/G RATIO 0.6 (0.9-1.6); ALBUMIN 2.3 g/dL (3.4-5.0); BILIRUBIN TOTAL 0.1 mg/dL (0.2-1.0); CALCIUM 8.5 mg/dL (8.5-10.1); CARBON DIOXIDE,CO2 24.2 mmol/L (21.0-32.0); CREATININE 0.6 mg/dL (0.6-1.0); EST CRCL DRUG DOSING (CG) 100.27 mL/min; POTASSIUM,K 3.5 mmol/L (3.5-5.1); PROTEIN TOTAL,TP 6.2 g/dL (6.4-8.2)
[2024-02-25 23:40] LABS: CORONAVIRUS COVID-19 NAA NEGATIVE (NEGATIVE); INFLUENZA A NAA NEGATIVE (NEGATIVE); INFLUENZA B NAA NEGATIVE (NEGATIVE); RESPIRATORY SYNCYTIAL VIR NAA NEGATIVE (NEGATIVE)
[2024-02-26] MEDS: Azithromycin 250 MG Tab PO ONE (00:15)
[2024-02-26 00:33] VITALS: BP 113/57; PULSE 81
== END 2024-02-26 00:25 | disposition home or self-care (01) ==
LOC: MW.ED 21:31
DX: O99.512 Diseases of the respiratory system complicating pregnancy, second trimester (principal); O99.282 Endocrine, nutritional and metabolic diseases complicating pregnancy, second trimester; J45.909 Unspecified asthma, uncomplicated; J20.9 Acute bronchitis, unspecified; E88.01 Alpha-1-antitrypsin deficiency; Z79.82 Long term (current) use of aspirin; Z79.899 Other long term (current) drug therapy; Z88.5 Allergy status to narcotic agent; Z91.013 Allergy to seafood; Z91.040 Latex allergy status; Z88.8 Allergy status to other drugs, medicaments and biological substances; Z3A.27 27 weeks gestation of pregnancy; Z75.8 Other problems related to medical facilities and other health care
CPT/HCPCS: 0241U; 36415; 71045; 80053; 85025; 96374; 99285; A9270; J2919; J3490; J7030; 99284

== ENCOUNTER 2024-04-07 14:30 | Emergency (ER) | payer MEDICARE, MEDICAID ==
[~2024-04-07 14:30] MED LIST: Iopamidol 755 MG/ML 500 ML Multipack Bottle IVPUSH STA
[2024-04-07] MEDS ORDERED: Ondansetron 4 MG/2 ML SDV ONE ×2 (17:31→17:35)
[2024-04-07 22:21] VITALS: BP 128/69; PULSE 65
[2024-04-08 07:58] LABS: BASOPHILS ABSOLUTE AUTO 0.04 K/uL (0.00-0.20); BASOPHILS PERCENT AUTO 0.4 % (0.0-1.0); EOSINOPHILS ABSOLUTE AUTO 0.07 K/uL (0.00-0.45); EOSINOPHILS PERCENT AUTO 0.6 % (0.0-6.0); HEMATOCRIT 35.5 % (37.0-47.0); HEMOGLOBIN 12.3 g/dL (12.0-16.0); IMMATURE GRAN ABSOLUTE AUTO 0.19 K/uL (0.00-0.05); IMMATURE GRAN PERCENT AUTO 1.7 % (0.0-0.4); LYMPHOCYTES ABSOLUTE AUTO 2.06 K/uL (1.00-4.80); LYMPHOCYTES PERCENT AUTO 18.7 % (24.0-44.0); MEAN CORPUSCULAR HEMOGLOBIN 34.5 pg (28.0-32.0); MEAN CORPUSCULAR HGB CONC 34.6 g/dL (32.0-36.0); MEAN CORPUSCULAR VOLUME 99.4 fL (83.0-99.0); MEAN PLATELET VOLUME 8.7 fL (9.4-12.3); MONOCYTES ABSOLUTE AUTO 0.83 K/uL (0.00-0.80); MONOCYTES PERCENT AUTO 7.5 % (0.0-8.0); NEUTROPHILS ABSOLUTE AUTO 7.82 K/uL (1.80-7.70); NEUTROPHILS PERCENT AUTO 71.1 % (41.0-71.0); PLATELET COUNT,PLT 250 K/uL (150-400); RED BLOOD CELL COUNT 3.57 M/uL (4.10-5.30); WHITE BLOOD CELL COUNT,WBC 11.01 K/uL (3.9-11.3)
[2024-04-08 13:12] LABS: A/G RATIO 0.7 (0.9-1.6); ALBUMIN 2.7 g/dL (3.4-5.0); BILIRUBIN TOTAL 0.2 mg/dL (0.2-1.0); CALCIUM 9.1 mg/dL (8.5-10.1); CARBON DIOXIDE,CO2 22.4 mmol/L (21.0-32.0); CREATININE 0.7 mg/dL (0.6-1.0); EST CRCL DRUG DOSING (CG) 85.94 mL/min; PROTEIN TOTAL,TP 6.6 g/dL (6.4-8.2)
[2024-04-08 14:05] LABS: APPEARANCE,URINE SLT CLOUDY; BILIRUBIN,URINE NEGATIVE (NEGATIVE); COLOR,URINE YELLOW; GLUCOSE,URINE NEGATIVE (NEGATIVE); KETONES,URINE NEGATIVE (NEGATIVE); LEUKOCYTE ESTERASE,URINE TRACE (NEGATIVE); NITRITE,URINE NEGATIVE (NEGATIVE); OCCULT BLOOD,URINE NEGATIVE (NEGATIVE); PROTEIN,URINE NEGATIVE (NEGATIVE); UROBILINOGEN,URINE 0.2 EU/dL (<2.0)
[2024-04-08 14:57] LABS: BACTERIA,URINE FEW (NEGATIVE); EPITHELIAL CELLS,URINE MODERATE (NONE-FEW); RBC,URINE NONE SEEN (0-2/HPF); WBC,URINE 0-3 (0-5/HPF)
[2024-04-11] MEDS: Iopamidol 755 MG/ML 500 ML Multipack Bottle IVPUSH STA (07:30)
== END 2024-04-07 20:51 ==
LOC: MW.ED 14:30
DX: O99.891 Other specified diseases and conditions complicating pregnancy (principal); R10.9 Unspecified abdominal pain; R06.02 Shortness of breath; R60.0 Localized edema; H53.9 Unspecified visual disturbance; Z3A.33 33 weeks gestation of pregnancy; Z88.5 Allergy status to narcotic agent; Z88.8 Allergy status to other drugs, medicaments and biological substances; Z91.040 Latex allergy status; Z79.82 Long term (current) use of aspirin; Z79.899 Other long term (current) drug therapy
CPT/HCPCS: 36415; 70450; 70496; 70498; 80053; 81001; 84484; 85025; 93005; 96374; 99284; J2405; Q9967; 93010

== ENCOUNTER 2024-04-19 05:57 | Emergency (ER) | payer MEDICARE, MEDICAID ==
[2024-04-19] MEDS: methylPREDNISolone Sodium Succinate 125 MG/2 ML SDV IVPUSH ONE (06:14)
[2024-04-19] MEDS: Albuterol/Ipratropium 3.0-0.5 MG/3 ML Neb Soln NEB STA (06:14)
[2024-04-19] MEDS: Magnesium Sulfate/Water 2 GM in Premix Bag 1 BAG IV ONE (06:14)
[2024-04-19 06:29] LABS: BASOPHILS ABSOLUTE AUTO 0.02 K/uL (0.00-0.20); BASOPHILS PERCENT AUTO 0.2 % (0.0-1.0); HEMOGLOBIN 10.5 g/dL (12.0-16.0); IMMATURE GRAN ABSOLUTE AUTO 0.36 K/uL (0.00-0.05); IMMATURE GRAN PERCENT AUTO 2.9 % (0.0-0.4); LYMPHOCYTES ABSOLUTE AUTO 1.98 K/uL (1.00-4.80); LYMPHOCYTES PERCENT AUTO 15.8 % (24.0-44.0); MEAN PLATELET VOLUME 9.2 fL (9.4-12.3); MONOCYTES ABSOLUTE AUTO 1.05 K/uL (0.00-0.80); MONOCYTES PERCENT AUTO 8.4 % (0.0-8.0); NEUTROPHILS ABSOLUTE AUTO 9.13 K/uL (1.80-7.70); NEUTROPHILS PERCENT AUTO 72.7 % (41.0-71.0); PLATELET COUNT,PLT 257 K/uL (150-400); WHITE BLOOD CELL COUNT,WBC 12.54 K/uL (3.9-11.3)
[2024-04-19 06:58] LABS: A/G RATIO 0.7 (0.9-1.6); ALBUMIN 2.5 g/dL (3.4-5.0); BILIRUBIN TOTAL 0.2 mg/dL (0.2-1.0); CARBON DIOXIDE,CO2 21.9 mmol/L (21.0-32.0); CREATININE 0.7 mg/dL (0.6-1.0); EST CRCL DRUG DOSING (CG) 85.94 mL/min; POTASSIUM,K 3.7 mmol/L (3.5-5.1); PROTEIN TOTAL,TP 5.9 g/dL (6.4-8.2)
[2024-04-19 07:08] LABS: CORONAVIRUS COVID-19 NAA NEGATIVE (NEGATIVE); INFLUENZA A NAA NEGATIVE (NEGATIVE); INFLUENZA B NAA NEGATIVE (NEGATIVE)
[2024-04-19 08:54] VITALS: BP 112/54; PULSE 65
== END 2024-04-19 08:52 | disposition home or self-care (01) ==
LOC: MW.ED 05:57
DX: R06.2 Wheezing (principal); R06.03 Acute respiratory distress; J44.9 Chronic obstructive pulmonary disease, unspecified; Z90.49 Acquired absence of other specified parts of digestive tract; Z79.899 Other long term (current) drug therapy; Z79.82 Long term (current) use of aspirin; Z88.8 Allergy status to other drugs, medicaments and biological substances; Z88.5 Allergy status to narcotic agent; Z91.013 Allergy to seafood; Z91.040 Latex allergy status; Z91.048 Other nonmedicinal substance allergy status
CPT/HCPCS: 0240U; 36415; 80053; 83880; 84484; 85025; 93005; 96365; 96366; 96375; 99285; J2919; J3475; 99283; J7620-GY

== ENCOUNTER 2024-04-19 14:37 | Emergency (ER) | payer MEDICARE, MEDICAID ==
[2024-04-19 14:50] VITALS: BP 121/67; PULSE 88
== END 2024-04-19 15:11 | disposition left against medical advice (07) ==
LOC: MW.ED 14:37
DX: O99.891 Other specified diseases and conditions complicating pregnancy (principal); O99.513 Diseases of the respiratory system complicating pregnancy, third trimester; R06.02 Shortness of breath; J44.9 Chronic obstructive pulmonary disease, unspecified; Z3A.35 35 weeks gestation of pregnancy; Z90.49 Acquired absence of other specified parts of digestive tract; Z79.51 Long term (current) use of inhaled steroids; Z79.899 Other long term (current) drug therapy; Z91.040 Latex allergy status; Z88.5 Allergy status to narcotic agent; Z91.013 Allergy to seafood; Z88.8 Allergy status to other drugs, medicaments and biological substances
CPT/HCPCS: 99283

== ENCOUNTER 2024-04-26 19:53 | Emergency (ER) | payer MEDICARE, MEDICAID ==
[2024-04-26 20:30] LABS: BASOPHILS ABSOLUTE AUTO 0.04 K/uL (0.00-0.20); BASOPHILS PERCENT AUTO 0.4 % (0.0-1.0); HEMATOCRIT 27.6 % (37.0-47.0); HEMOGLOBIN 9.5 g/dL (12.0-16.0); IMMATURE GRAN ABSOLUTE AUTO 0.06 K/uL (0.00-0.05); IMMATURE GRAN PERCENT AUTO 0.6 % (0.0-0.4); LYMPHOCYTES PERCENT AUTO 25.5 % (24.0-44.0); MEAN CORPUSCULAR HEMOGLOBIN 34.4 pg (28.0-32.0); MEAN CORPUSCULAR HGB CONC 34.4 g/dL (32.0-36.0); MEAN PLATELET VOLUME 8.5 fL (9.4-12.3); MONOCYTES ABSOLUTE AUTO 0.89 K/uL (0.00-0.80); MONOCYTES PERCENT AUTO 8.7 % (0.0-8.0); NEUTROPHILS PERCENT AUTO 63.8 % (41.0-71.0); PLATELET COUNT,PLT 328 K/uL (150-400); RED BLOOD CELL COUNT 2.76 M/uL (4.10-5.30); WHITE BLOOD CELL COUNT,WBC 10.19 K/uL (3.9-11.3)
[2024-04-26 20:59] LABS: APPEARANCE,URINE CLEAR; BILIRUBIN,URINE NEGATIVE (NEGATIVE); COLOR,URINE YELLOW; GLUCOSE,URINE NEGATIVE (NEGATIVE); KETONES,URINE NEGATIVE (NEGATIVE); LEUKOCYTE ESTERASE,URINE NEGATIVE (NEGATIVE); NITRITE,URINE NEGATIVE (NEGATIVE); OCCULT BLOOD,URINE MODERATE (NEGATIVE); PROTEIN,URINE NEGATIVE (NEGATIVE); UROBILINOGEN,URINE 0.2 EU/dL (<2.0)
[2024-04-26 21:03] LABS: A/G RATIO 0.7 (0.9-1.6); ALBUMIN 2.5 g/dL (3.4-5.0); BILIRUBIN TOTAL 0.2 mg/dL (0.2-1.0); CALCIUM 8.8 mg/dL (8.5-10.1); CARBON DIOXIDE,CO2 24.2 mmol/L (21.0-32.0); CREATININE 0.8 mg/dL (0.6-1.0); EST CRCL DRUG DOSING (CG) 75.2 mL/min; MAGNESIUM 2.1 mg/dL (1.8-2.4); POTASSIUM,K 3.9 mmol/L (3.5-5.1); PROTEIN TOTAL,TP 5.9 g/dL (6.4-8.2)
[2024-04-26 21:15] LABS: CORONAVIRUS COVID-19 NAA NEGATIVE (NEGATIVE); INFLUENZA A NAA NEGATIVE (NEGATIVE); INFLUENZA B NAA NEGATIVE (NEGATIVE); RESPIRATORY SYNCYTIAL VIR NAA NEGATIVE (NEGATIVE)
[2024-04-26 21:15] LABS: BACTERIA,URINE FEW (NEGATIVE); MUCUS,URINE LIGHT (NONE-MOD); SQUAMOUS EPITHELIAL CELLS,UR FEW; WBC,URINE 0-2 (0-5/HPF)
[2024-04-26 23:15] VITALS: BP 137/55; PULSE 67
== END 2024-04-26 23:19 | disposition home or self-care (01) ==
LOC: MW.ED 19:53
DX: O99.893 Other specified diseases and conditions complicating puerperium (principal); R60.0 Localized edema; J45.909 Unspecified asthma, uncomplicated; Z90.49 Acquired absence of other specified parts of digestive tract; Z79.899 Other long term (current) drug therapy; Z79.84 Long term (current) use of oral hypoglycemic drugs; Z88.5 Allergy status to narcotic agent; Z91.013 Allergy to seafood; Z91.048 Other nonmedicinal substance allergy status; Z91.040 Latex allergy status; Z88.8 Allergy status to other drugs, medicaments and biological substances; Z75.8 Other problems related to medical facilities and other health care; R50.9 Fever, unspecified
CPT/HCPCS: 0241U; 36415; 71045; 80053; 81001; 83735; 83880; 84484; 85025; 93005; 93970; 99284; 93010

== ENCOUNTER 2024-06-02 12:28 | Emergency (ER) | payer MEDICARE, MEDICAID ==
[2024-06-02] MEDS: Sodium Chloride 0.9% 1,000 ML IV ONE (12:59)
[2024-06-02] MEDS: Sodium Chloride 0.9% 1,000 ML IV SCH (14:35)
[2024-06-02 14:37] LABS: BASOPHILS ABSOLUTE AUTO 0.03 K/uL (0.00-0.20); BASOPHILS PERCENT AUTO 0.5 % (0.0-1.0); EOSINOPHILS ABSOLUTE AUTO 0.12 K/uL (0.00-0.45); EOSINOPHILS PERCENT AUTO 1.8 % (0.0-6.0); HEMATOCRIT 37.6 % (37.0-47.0); HEMOGLOBIN 12.6 g/dL (12.0-16.0); IMMATURE GRAN ABSOLUTE AUTO 0.02 K/uL (0.00-0.05); IMMATURE GRAN PERCENT AUTO 0.3 % (0.0-0.4); LYMPHOCYTES ABSOLUTE AUTO 2.28 K/uL (1.00-4.80); LYMPHOCYTES PERCENT AUTO 34.7 % (24.0-44.0); MEAN CORPUSCULAR HEMOGLOBIN 32.8 pg (28.0-32.0); MEAN CORPUSCULAR HGB CONC 33.5 g/dL (32.0-36.0); MEAN CORPUSCULAR VOLUME 97.9 fL (83.0-99.0); MEAN PLATELET VOLUME 9.9 fL (9.4-12.3); MONOCYTES ABSOLUTE AUTO 0.61 K/uL (0.00-0.80); MONOCYTES PERCENT AUTO 9.3 % (0.0-8.0); NEUTROPHILS ABSOLUTE AUTO 3.51 K/uL (1.80-7.70); NEUTROPHILS PERCENT AUTO 53.4 % (41.0-71.0); PLATELET COUNT,PLT 200 K/uL (150-400); RED BLOOD CELL COUNT 3.84 M/uL (4.10-5.30); WHITE BLOOD CELL COUNT,WBC 6.57 K/uL (3.9-11.3)
[2024-06-02 14:56] LABS: A/G RATIO 1.1 (0.9-1.6); ALBUMIN 3.5 g/dL (3.4-5.0); BILIRUBIN TOTAL 0.3 mg/dL (0.2-1.0); CREATININE 0.8 mg/dL (0.6-1.0); EST CRCL DRUG DOSING (CG) 75.2 mL/min; PROTEIN TOTAL,TP 6.8 g/dL (6.4-8.2)
[2024-06-02] MEDS: Misoprostol 200 MCG Tab PO STA (16:36)
[2024-06-02] MEDS: Acetaminophen 500 MG Tab PO ONE (17:10)
[2024-06-02 17:11] VITALS: PULSE 60
[2024-06-02 17:27] VITALS: BP 155/79
== END 2024-06-02 17:30 | disposition home or self-care (01) ==
LOC: MW.ED 12:28
DX: O72.2 Delayed and secondary postpartum hemorrhage (principal); J44.9 Chronic obstructive pulmonary disease, unspecified; Z90.49 Acquired absence of other specified parts of digestive tract; Z79.82 Long term (current) use of aspirin; Z88.5 Allergy status to narcotic agent; Z91.040 Latex allergy status; Z88.8 Allergy status to other drugs, medicaments and biological substances; Z91.013 Allergy to seafood; Z75.8 Other problems related to medical facilities and other health care
CPT/HCPCS: 36415; 76830; 80053; 85025; 86850; 86900; 86901; 93005; 96360; 96361; 99284; A9270; J7030

== ENCOUNTER 2025-02-08 17:01 | Emergency (ER) | payer MEDICARE, MEDICAID ==
[2025-02-08] MEDS ORDERED: Sodium Chloride 0.9% 20 ML SDV IV PRN (17:08)
[2025-02-08] MEDS ORDERED: Sodium Chloride 0.9% 2.5 ML Syringe FLUSH PRN (17:08)
[2025-02-08] MEDS ORDERED: Sodium Chloride 0.9% 10 ML Syringe FLUSH PRN (17:08)
[2025-02-08] MEDS: diphenhydrAMINE 50 MG/ML SDV IVPUSH ONE (17:12)
[2025-02-08] MEDS: Famotidine 20 MG/2 ML SDV IVPUSH ONE (17:12)
[2025-02-08] MEDS: Lactated Ringers 1,000 ML IV SCH (17:12)
[2025-02-08] MEDS: methylPREDNISolone Sodium Succinate 125 MG/2 ML SDV IVPUSH ONE (17:12)
[2025-02-08] MEDS: EPINEPHrine 1 MG/ML SDV IM ONE (17:23)
[2025-02-08 18:18] LABS: BASOPHILS ABSOLUTE AUTO 0.05 K/uL (0.00-0.20); BASOPHILS PERCENT AUTO 0.5 % (0.0-1.0); EOSINOPHILS ABSOLUTE AUTO 0.21 K/uL (0.00-0.45); HEMATOCRIT 36.6 % (37.0-47.0); HEMOGLOBIN 12.4 g/dL (12.0-16.0); IMMATURE GRAN ABSOLUTE AUTO 0.04 K/uL (0.00-0.05); IMMATURE GRAN PERCENT AUTO 0.4 % (0.0-0.4); LYMPHOCYTES ABSOLUTE AUTO 3.04 K/uL (1.00-4.80); LYMPHOCYTES PERCENT AUTO 29.3 % (24.0-44.0); MEAN CORPUSCULAR HEMOGLOBIN 30.8 pg (28.0-32.0); MEAN CORPUSCULAR HGB CONC 33.9 g/dL (32.0-36.0); MONOCYTES ABSOLUTE AUTO 0.83 K/uL (0.00-0.80); NEUTROPHILS ABSOLUTE AUTO 6.22 K/uL (1.80-7.70); NEUTROPHILS PERCENT AUTO 59.8 % (41.0-71.0); PLATELET COUNT,PLT 313 K/uL (150-400); RED BLOOD CELL COUNT 4.02 M/uL (4.10-5.30); WHITE BLOOD CELL COUNT,WBC 10.39 K/uL (3.9-11.3)
[2025-02-08] MEDS: Albuterol/Ipratropium 3.0-0.5 MG/3 ML Neb Soln NEB ONE (18:20)
[2025-02-08] MEDS: Albuterol/Ipratropium 3.0-0.5 MG/3 ML Neb Soln ONE (18:37)
[2025-02-08 18:50] LABS: ALANINE AMINOTRANSFERASE,ALT 17 IU/L (14-63); ALBUMIN 3.3 g/dL (3.4-5.0); ALKALINE PHOSPHATASE 71 U/L (46-116); ASPARTATE AMNIOTRANSFERASE,AST 15 IU/L (15-37); BILIRUBIN TOTAL 0.2 mg/dL (0.2-1.0); BLOOD UREA NITROGEN,BUN 14 mg/dL (7.0-18.0); CALCIUM 8.4 mg/dL (8.5-10.1); CARBON DIOXIDE,CO2 27.3 mmol/L (21.0-32.0); CHLORIDE,CL 101 mmol/L (98-107); CREATININE 0.9 mg/dL (0.6-1.0); EST CRCL DRUG DOSING (CG) 66.25 mL/min; ESTIMATED GFR 89 mL/min (>60); GLUCOSE RANDOM 104 mg/dL (74-106); MAGNESIUM 1.8 mg/dL (1.8-2.4); POTASSIUM,K 3.4 mmol/L (3.5-5.1); PRO B-TYPE NATRIUR PEPT,BNPPRO 48 pg/mL (0-125); PROTEIN TOTAL,TP 6.5 g/dL (6.4-8.2); SODIUM,NA 137 mmol/L (136-145); TSH ULTRASENSITIVE 0.55 uIU/mL (0.36-3.74)
[2025-02-08 20:14] VITALS: BP 134/88; PULSE 63
== END 2025-02-08 20:14 | disposition home or self-care (01) ==
LOC: MW.ED 17:01
DX: L23.9 Allergic contact dermatitis, unspecified cause (principal); L20.9 Atopic dermatitis, unspecified; J44.9 Chronic obstructive pulmonary disease, unspecified; Z79.899 Other long term (current) drug therapy; Z88.5 Allergy status to narcotic agent; Z91.013 Allergy to seafood; Z91.040 Latex allergy status; Z88.8 Allergy status to other drugs, medicaments and biological substances
CPT/HCPCS: 36415; 71045; 80053; 82947; 83605; 83735; 83880; 84443; 84484; 85025; 93005; 96372; 96374; 96375; 99284; A9270; J0171; J1200; J2919; J7120